=== PATIENT | female | born 1950 | race Caucasian/White ===

== ENCOUNTER 2017-01-27 11:39 | Outpatient (CLI) | payer MEDICARE, OTHER ==
[2017-01-27 12:50] LABS: Hematocrit 34.4 % (36.0-47.0); Mean Platelet Volume 8.2 fL (7.4-10.4); Red Blood Cell (RBC) Count 3.73 mill/uL (4.20-5.40); White Blood Cell (WBC) Count 6.2 thou/uL (4.8-10.8)
[2017-01-27 12:56] LABS: PTT 29.1 SEC (22.9-36.1); Prothrombin Time 13.7 SEC (12.0-14.7)
[2017-01-27 13:12] LABS: Anion Gap 10 mmol/L (10-20); BUN (Urea Nitrogen) 37 mg/dL (9.8-20.1); Calc. Creatinine Clearance 0 mL/min (70-130); Calcium 8.9 mg/dL (7.8-10.44); Carbon Dioxide 28 mmol/L (23-31); Chloride 105 mmol/L (98-107); Estimated GFR-MDRD 29
[2017-01-27 13:14] LABS: Bacteria/HPF 4+ HPF (None Seen); Bilirubin Negative (Negative); Blood, Urine Small (Negative); Glucose, Urine (Dipstick) Negative (Negative); Hyaline Casts/LPF 0-3 HYALINE CAST LPF (0-3 Hyaline); Ketone, Urine Negative (Negative); Nitrite Positive (Negative); Protein, Urine (Dipstick) 30 mg/dL (Neg-Trace); Squamous Epithelial None Seen HPF (0-3)
--- NOTE | 2017-01-30 16:02 | EKG ---
Test Reason : Blood Pressure : / mmHG Vent. Rate : 086 BPM Atrial Rate : 086 BPM P-R Int : 178 ms QRS Dur : 136 ms QT Int : 400 ms P-R-T Axes : 052 072 046 degrees QTc Int : 478 ms Normal sinus rhythm Right bundle branch block Cannot rule out Anterior infarct (cited on or before 08-DEC-2016) Abnormal ECG Confirmed by IMELDA CHAPMAN ([id number]) on 01/30/2017 4:02:22 PM Referred By: FESTUS Confirmed By:IMELDA CHAPMAN
== END 2017-01-27 11:40 | disposition home or self-care (01) ==
LOC: LABBT 11:39
PROVIDERS: ATTEND Urology
DX: Z01.818 Encounter for other preprocedural examination (principal); R94.31 Abnormal electrocardiogram [ECG] [EKG]; N20.1 Calculus of ureter
CPT/HCPCS: 80048; 81001; 85027; 85610; 85730; 87077; 87086; 87186; 93005; 93010

== ENCOUNTER 2017-01-31 11:00 | Day surgery (SDC) | payer MEDICARE, OTHER ==
[2017-01-27 12:00] VITALS: BMI 32.4
[2017-01-31] MEDS ORDERED: Levofloxacin 500 mg/D5W 100 ml Premix Bag ONE (11:57)
[2017-01-31] MEDS ORDERED: Midazolam HCl 2 mg/2 ml Vial ONE (12:24)
[2017-01-31] MEDS ORDERED: Fentanyl 250 MCG/5 ML VIAL ONE (12:24)
[2017-01-31] MEDS ORDERED: Ondansetron HCl/PF 4 MG/2 ML Vial ONE (12:50)
[2017-01-31] MEDS ORDERED: Lidocaine 1% PF 5 ML VIAL ONE (12:50)
[2017-01-31] MEDS ORDERED: Propofol 200 MG/20 ML VIAL ONE (12:50)
[2017-01-31] MEDS ORDERED: Glycopyrrolate 0.2 MG/ML 5 ML SYRINGE ONE (12:50)
[2017-01-31] MEDS ORDERED: Iothalamate Meglumine 60% 50 ML VIAL FS ONE (13:34)
[2017-01-31] MEDS ORDERED: Fentanyl 100 MCG/2 ML VIAL ONE (14:14)
--- NOTE | 2017-01-31 14:15 | OP ---
DATE OF PROCEDURE: 01/31/2017 SERVICE: Urology. SURGEON: Ricky Benavides M.D. PREOPERATIVE DIAGNOSIS: Left ureteral stone. POSTOPERATIVE DIAGNOSIS: Left ureteral stone with dense stricturing. INDICATIONS FOR PROCEDURE: Ms. Rocha is a 66-year-old white female with multiple comorbidities wh o presented to me with history of chronic kidney disease and fairly severe left hydronephrosis. A C T demonstrated there was an impacted distal left ureteral stone measuring 1.6 cm. In an attempt to improve her kidney function. I told her we could attempt to remove the stone and then revaluate her kidney function once the stone was gone to assess whether the kidney was still viable or not. Risk s and benefits of the surgery were discussed and she agreed to proceed forward. DESCRIPTION OF PROCEDURE: After identification of arm band and verification of consent, the patient was brought back to the operating room where she underwent general anesthesia with an LMA. She is placed in dorsal lithotomy position and prepped and draped in usual sterile fashion. After appropri ate timeout, a lubricated 22 Czech rigid cystoscope was introduced per urethra into the bladder. A ttention was turned to the left ureteral orifice which was somewhat narrow and atrophic. Attempts t o place a 0.035 sensor wire were met with resistance and inability to advance the wire. I felt that given the stone size it may not be possible to advance the wire around the stone. Therefore, I fel t it may be better to go in with the ureteroscope and aim the wire at the periphery of the stone to see if we could slide the wire around the stone up into the proximal ureter. Therefore, the cystosc ope was withdrawn along with the wire and a semirigid ureteroscope brought in through the urethral a nd positioned into the distal ureter. With extreme caution and being very gentle, the ureteroscope was gently inserted into the ureteral orifice and cannulated up into the distal ureter up to the lev el of blinded obliterative stricture. There were a few stone fragments on the periphery of the stri cture, but it did appear that the ureter ended blindly. On fluoroscopy, the stone could be seen imm ediately on the opposite side of the strictured area. Therefore, I felt that possibly there was a f ilm of scar tissue in front of the stricture. Therefore, a 365 micron laser fiber was brought in an d under the tissue settings, the stricture was obliterated using the tissue settings on the 365 micr on laser fiber. After obliterating a significant amount of tissue it did not appear that there was any stone apparent on the opposite side, again using fluoroscopy, it appeared that we were going int o the stone, but I could not actually see the stone on ureteroscopy. A retrograde pyelogram was per formed and it demonstrated extravasation of contrast outside the ureter. Out of concern for not kno wing where the lumen of the ureter was or where the stone is actually located and the fact that ther e was extremely dense stricture surrounding the stone, it is likely the stone is impacted and chroni c in nature and has likely been there for many months resulting in dense fibrosis around the stone. Given that we were already outside the ureter at one point I felt that continued attempts to find a way into the true lumen through the stone could potentially resulting in iliac artery injury an exc essive bleeding and risk to the patient. More than likely even if the stone was able to be broken u p at this point, given the dense fibrosis and scarring the patient would likely just end up with the results of the stricture again and likely require ureteral reimplant. Ultimately the options for t his patient are going to be either to leave the stone in place and just live with it for the remaind er of her life with a solitary kidney or give consideration for a ureteral reimplant, which will pro bably be the only way to salvage this kidney and it is questionable whether this kidney works at all . A mag 3 scan would need to be performed with a nephrostomy tube to indicate whether or not the ki dney had any potential function. I will discuss this with her family and with the patient, postoper atively, but I elected to terminate the procedure as opposed to potentially exposing the patient to significant harmed such as a complete ureteral obliteration injury or potential injury to a retroper itoneal structure such as the iliac or internal iliac artery by digging outside the ureter blindly w ith the laser fiber and ureteroscope. As such, I checked for bleeding by turning off the irrigation and there did not appear to be any significant bleeding from the tissues. The ureteroscope was the n withdrawn and removed. The patient's bladder was emptied and then the patient was awakened and ta magdalena to PACU for recovery in stable condition. COMPLICATIONS: Mild ureteral perforation with inability to remove the stone. SPECIMENS: None. ESTIMATED BLOOD LOSS: Minimal. RETAINED TUBES AND DRAINS: None. DISPOSITION: The patient will be discharged home on antibiotics and she will follow up with me in a pproximately 2-3 weeks at which time we will discuss long-term management options for her.
--- NOTE | 2017-01-31 14:56 | RAD ---
RETROGRADE URETOGRAM INTRAOPERATIVE FLUOROSCOPY: History: Ureteral stone. FINDINGS: Intraoperative fluoroscopy is provided for retrograde study as performed by Dr. Benavides. Spot fluoro scopic image shows cystoscopic catheter to overlie the left lower pelvis, with a small amount of irr egular contrast collection. The ureter is not well opacified. POS: [facility]
[2017-01-31] MEDS ORDERED: Sodium Chloride 0.9% 0 ML ONE (20:09)
== END 2017-01-31 15:30 | disposition home or self-care (01) ==
LOC: SDC 11:00
PROVIDERS: ATTEND Urology
PROC: 0TC78ZZ Extirpation of Matter from Left Ureter, Via Natural or Artificial Opening Endoscopic (ICD-10-PCS; principal; 2017-01-31)
DX: N20.1 Calculus of ureter (principal); E11.22 Type 2 diabetes mellitus with diabetic chronic kidney disease; N18.3 Chronic kidney disease, stage 3 (moderate); E11.40 Type 2 diabetes mellitus with diabetic neuropathy, unspecified; J44.9 Chronic obstructive pulmonary disease, unspecified; Z88.8 Allergy status to other drugs, medicaments and biological substances; Z79.899 Other long term (current) drug therapy; Z90.49 Acquired absence of other specified parts of digestive tract; Z95.5 Presence of coronary angioplasty implant and graft; Z90.710 Acquired absence of both cervix and uterus; Z98.84 Bariatric surgery status; Z96.653 Presence of artificial knee joint, bilateral; Z96.643 Presence of artificial hip joint, bilateral; Z98.890 Other specified postprocedural states; Z87.891 Personal history of nicotine dependence
CPT/HCPCS: 52353; 74420; 96374; C1769; A4216; J1956; J2001; J2250; J2405; J2704; J3010; Q9961

== ENCOUNTER 2017-04-17 09:15 | Inpatient (IN) | payer MEDICARE, OTHER ==
[2017-04-24] MEDS ORDERED: Midazolam HCl 2 mg/2 ml Vial ONE (12:38)
[2017-04-24] MEDS ORDERED: Fentanyl 100 MCG/2 ML VIAL ONE (12:38)
[2017-04-24] MEDS ORDERED: CEFAZOLIN/Water 2 GM/20 ML SYRINGE ONE (13:00)
[2017-04-24] MEDS ORDERED: Fentanyl 100 MCG/2 ML VIAL SLOW IVP PRN (13:07)
[2017-04-24] MEDS ORDERED: Promethazine HCl 25 MG/ML VIAL IM PRN ×2 (13:08→13:37)
[2017-04-24] MEDS ORDERED: HYDROcodone/Acetaminophen 5/325 mg Tablet PO PRN (13:08)
[2017-04-24] MEDS ORDERED: Ondansetron HCl/PF 4 MG/2 ML Vial IVP PRN ×2 (13:08→13:37)
[2017-04-24] MEDS ORDERED: traMADol HCl 50 MG TAB PO PRN ×2 (13:08)
[2017-04-24] MEDS ORDERED: Ropivacaine 0.2% 550 ML 550 ML NERVE BLCK SCH (13:08)
[2017-04-24] MEDS ORDERED: Ropivacaine 0.2% HCl/PF (40 MG/20 ML VIAL) ONE (13:25)
[2017-04-24] MEDS ORDERED: Ropivacaine 0.5% HCl/PF (150 MG/30 ML VIAL) ONE (13:25)
[2017-04-24] MEDS ORDERED: Glycopyrrolate 0.2 MG/ML 5 ML SYRINGE ONE (13:27)
[2017-04-24] MEDS ORDERED: Propofol 200 MG/20 ML VIAL ONE (13:27)
[2017-04-24] MEDS ORDERED: PHENYLEPHRINE-NS 100 MCG/ML 10 ML SYRINGE ONE (13:27)
[2017-04-24] MEDS ORDERED: Ondansetron HCl/PF 4 MG/2 ML Vial ONE (13:27)
[2017-04-24] MEDS ORDERED: Lidocaine 1% PF 5 ML VIAL ONE (13:27)
[2017-04-24] MEDS ORDERED: Promethazine HCl 25 MG/ML VIAL SLOW IVP PRN (13:37)
--- NOTE | 2017-04-24 15:51 | RAD ---
RIGHT SHOULDER ONE VIEW: History: Right shoulder replacement. FINDINGS: Reverse prosthesis right shoulder is in place without perihardware lucency. Skin lesley and soft tis errol gas are apparent. IMPRESSION: Right shoulder replacement is in good radiographic position. POS: [facility]
--- NOTE | 2017-04-24 16:42 | OP ---
DATE OF OPERATION: 04/24/2017 OPERATION: Right reverse shoulder arthroplasty. PREOPERATIVE DIAGNOSIS: Right rotator cuff arthropathy. POSTOPERATIVE DIAGNOSIS: Right rotator cuff arthropathy. COMPLICATIONS: None. ESTIMATED BLOOD LOSS: 200 mL SURGEON: Neymar Salazar M.D. PASSENGER BOOKING CLERK: Misael Lemus PA-C IMPLANTS: DePuy reverse shoulder arthroplasty size 14 stem with a +3 glenoid liner, size 42 mm gleno sphere. INDICATIONS: Ms. Rocha is a 66-year-old female who has developed severe pain and weakness with greenwood ited function in her right shoulder. She has been found to have advanced arthritis with deficient ro tator cuff. She has been indicated for reverse shoulder arthroplasty to hopefully restore function a nd relieve pain. Risks have been reviewed in detail. She has elected to proceed with the operation. DESCRIPTION OF PROCEDURE: Ms. Rocha was identified in the preoperative holding area. Her correct extremity was marked. She was carried to the operating room. She was positioned supine. General an esthesia was induced. A multidisciplinary timeout was performed. The right upper extremity was prep ped and draped in sterile fashion. We began the procedure with a deltopectoral approach to the shoulder. We dissected down through the subcutaneous tissues to the fascia. The fascia was incised. We protected the cephalic vein. At thi s point, we retracted the deltoid muscle laterally. We developed the deltopectoral interval. We the n exposed the underlying subscapularis muscle. We performed a subscapularis tenotomy after placing s jia sutures in the tendon. The patient's biceps tendon had ruptured and did not require tenotomy. A t this point, we dislocated the humeral head and performed an inferior humeral soft tissue release. We then entered the canal of the humerus. Next, we placed appropriate cutting guide over the humerus and resected our proximal humeral bone. We then protected the humerus and retracted it posteriorly. This exposed the glenoid. We placed our guidewire in centered position of the glenoid. We then ov er reamed the guidewire back to a cancellous bony base. Next, we placed our central reamer to perfor m our central hole. Finally, we impacted our glenoid baseplate. We placed four screws inferior, sup erior, anterior, and posterior. Next, we impacted a 42 mm glenosphere onto the glenoid and tightened our appropriate screw. At this point, we then moved back to the humerus. We implanted our humeral trial after reaming up to a size 14 reamer. A 14 stem was a good fit. We then prepared our proximal humerus for the humeral body with an appropriate reamer. At this point, we were able to trial. A +3 poly gave a good range of motion with no impingement and stability. Trial components were removed and final components were placed. At this point, we again reduced the shoulder and took the shoulder through full range of mo tion. We thoroughly irrigated once more. We then closed our subscapularis tenotomy with Ethibond oliva ture. This was followed by closure of her deltopectoral interval, soft tissues, and skin. A sterile dressing was applied. The patient was taken to the recovery room in good condition without complica tion.
[2017-04-24] MEDS ORDERED: Communication Order-Pharmacy FS PRN (17:02)
[2017-04-24 18:36] VITALS: BMI 32.9
[2017-04-24] MEDS ORDERED: TETANUS AND DIPHTHERIA TOX/PF 0.5 ML DISP.SYRIN IM SCH (20:00)
[2017-04-24] MEDS: Amitriptyline HCl 25 MG TAB PO SCH (21:11)
[2017-04-24] MEDS: Morphine ER 30 MG TAB PO SCH (21:12)
[2017-04-24] MEDS: Docusate 100 MG CAP PO SCH (21:12)
[2017-04-24] MEDS: Gabapentin 400 MG CAP PO SCH (21:12)
[2017-04-24] MEDS: Pravastatin Sodium 40 MG TAB PO SCH (21:13)
[2017-04-24] MEDS: CEFAZOLIN/Water 2 GM/20 ML SYRINGE SLOW IVP SCH (21:14)
[2017-04-24] MEDS: Zonisamide 100 MG CAP PO SCH (22:57)
[2017-04-25 04:20] LABS: #Eosinphils 0.1 thou/uL (0.0-0.7); #Lymphocytes 1.6 thou/uL (1.20-3.40); #Monocytes 0.7 thou/uL (0.11-0.59); #Neutrophils 6.3 thou/uL (1.40-6.50); %Basophils 0.2 % (0.0-1.0); %Eosinophils 0.7 % (0.0-10.0); %Lymphocytes 18.7 % (21.0-51.0); %Monocytes 8.1 % (0.0-10.0); %Neutrophils 72.4 % (42.0-75.0); Hemoglobin 9.1 g/dL (12.0-16.0); Mean Corpuscular HGB CONC 31.1 g/dL (32.0-36.0); Mean Corpuscular Hemoglobin 28.9 pg (27.0-31.0); Mean Corpuscular Volume 92.8 fl (81.0-99.0); Mean Platelet Volume 7.7 fL (7.4-10.4); Platelet Count 181 thou/uL (130-400); RBC Distribution Width 13.8 % (11.5-14.5); Red Blood Cell (RBC) Count 3.16 mill/uL (4.20-5.40); White Blood Cell (WBC) Count 8.6 thou/uL (4.8-10.8)
[2017-04-25 04:22] LABS: ALT (SGPT) Less than 7 U/L (8-55); AST (SGOT) 12 U/L (5-34); Albumin 3.4 g/dL (3.4-4.8); Alkaline Phosphatase 54 U/L (40-150); Anion Gap 12 mmol/L (10-20); BUN (Urea Nitrogen) 35 mg/dL (9.8-20.1); Bilirubin, Total 0.2 mg/dL (0.2-1.2); Calc. Creatinine Clearance 44 mL/min (70-130); Calcium 8.4 mg/dL (7.8-10.44); Carbon Dioxide 27 mmol/L (23-31); Chloride 107 mmol/L (98-107); Estimated GFR-MDRD 27; Globulin 2.6 g/dL (2.4-3.5); Glucose 132 mg/dL (80-115); Potassium 4.9 mmol/L (3.5-5.1); Sodium 141 mmol/L (136-145)
[2017-04-25] MEDS: CEFAZOLIN/Water 2 GM/20 ML SYRINGE SLOW IVP SCH ×3 (05:58→21:30)
[2017-04-25] MEDS: Acetaminophen 325 MG TAB PO PRN ×2 (07:18→21:33)
[2017-04-25] MEDS: Pioglitazone HCl 15 MG TAB PO SCH (08:38)
[2017-04-25] MEDS: Amlodipine 5 MG TAB PO SCH (08:38)
[2017-04-25] MEDS: Gabapentin 400 MG CAP PO SCH ×2 (08:39→21:28)
[2017-04-25] MEDS: Multivit, Therapeutic 1 TAB PO SCH (08:39)
[2017-04-25] MEDS: Morphine ER 30 MG TAB PO SCH ×2 (08:39→21:29)
[2017-04-25] MEDS: Zonisamide 25 MG CAP PO SCH (08:40)
[2017-04-25] MEDS: Docusate 100 MG CAP PO SCH ×2 (08:40→21:28)
[2017-04-25] MEDS: Bupropion 150 MG SR TAB PO SCH ×2 (08:40→21:28)
[2017-04-25] MEDS: DULoxetine 60 MG CAP PO SCH (08:40)
[2017-04-25] MEDS ORDERED: CRANBERRY FRUIT EXTRACT PO SCH (09:00)
[2017-04-25] MEDS ORDERED: Clopidogrel Bisulfate 75 MG TAB ONE (20:06)
[2017-04-25] MEDS: Amitriptyline HCl 25 MG TAB PO SCH (21:28)
[2017-04-25] MEDS: Pravastatin Sodium 40 MG TAB PO SCH (21:29)
[2017-04-25] MEDS: Zonisamide 100 MG CAP PO SCH (22:22)
[2017-04-26] MEDS: CEFAZOLIN/Water 2 GM/20 ML SYRINGE SLOW IVP SCH ×2 (05:25→18:04)
[2017-04-26] MEDS ORDERED: Dextrose 50% Abboject 50 ML SYRINGE SLOW IVP PRN (06:06)
[2017-04-26] MEDS ORDERED: Dextrose 5% in Water 1,000 ML IV PRN (06:06)
[2017-04-26] MEDS: HYDROcodone/Acetaminophen 5/325 mg Tablet PO PRN ×3 (06:39→18:53)
[2017-04-26 07:06] LABS: ALT (SGPT) Less than 7 U/L (8-55); AST (SGOT) 13 U/L (5-34); Albumin 3.2 g/dL (3.4-4.8); Alkaline Phosphatase 55 U/L (40-150); Anion Gap 14 mmol/L (10-20); BUN (Urea Nitrogen) 32 mg/dL (9.8-20.1); Bilirubin, Total 0.3 mg/dL (0.2-1.2); Calc. Creatinine Clearance 43 mL/min (70-130); Calcium 8.8 mg/dL (7.8-10.44); Carbon Dioxide 25 mmol/L (23-31); Chloride 105 mmol/L (98-107); Estimated GFR-MDRD 26; Globulin 3.1 g/dL (2.4-3.5); Glucose 172 mg/dL (80-115); Potassium 4.3 mmol/L (3.5-5.1); Protein, Total 6.3 g/dL (6.0-8.3); Sodium 140 mmol/L (136-145)
[2017-04-26] MEDS: Mometasone/Formoterol 120 PUFF INHALER INH SCH ×2 (07:14→19:56)
[2017-04-26] MEDS: Amlodipine 5 MG TAB PO SCH (08:07)
[2017-04-26] MEDS: Pioglitazone HCl 15 MG TAB PO SCH (08:07)
[2017-04-26] MEDS: DULoxetine 60 MG CAP PO SCH (08:07)
[2017-04-26] MEDS: Docusate 100 MG CAP PO SCH ×2 (08:09→21:54)
[2017-04-26] MEDS: Morphine ER 30 MG TAB PO SCH ×2 (08:09→21:54)
[2017-04-26] MEDS: Gabapentin 400 MG CAP PO SCH ×2 (08:09→21:54)
[2017-04-26] MEDS: Multivit, Therapeutic 1 TAB PO SCH (08:09)
[2017-04-26] MEDS: Zonisamide 25 MG CAP PO SCH (08:10)
[2017-04-26] MEDS: Bupropion 150 MG SR TAB PO SCH ×2 (08:12→21:53)
[2017-04-26] MEDS: Zonisamide 100 MG CAP PO SCH (21:53)
[2017-04-26] MEDS: Amitriptyline HCl 25 MG TAB PO SCH (21:54)
[2017-04-26] MEDS: Pravastatin Sodium 40 MG TAB PO SCH (21:54)
[2017-04-26] MEDS: HumaLOG 300 UNITS/3 ML VIAL SC PRN (21:56)
--- NOTE | 2017-04-27 00:14 | HP ---
DATE OF SERVICE: 04/26/2017 CHIEF COMPLAINT: Right shoulder pain. HISTORY OF PRESENT ILLNESS: The patient has been admitted for reverse total shoulder. I was consulted for COPD and diabetes management along with blood pressure management. The patient denies any shortness of breath on her home oxygen levels, any sputum production. Denies any fevers or chills, denies any abdomen pain, tolerable right shoulder pain postoperatively. The patient denies any hypoglycemia events since admission to the hospital, passing flatus, no bowel movement since admission. Vital signs on arrival to floor this a.m., temperature of 97.5, pulse of 98, respiratory rate of 20, oxygen saturation 91% on 3 liters nasal cannula, blood pressure 135/72. On review of past medical, family, social, and surgical history includes remote history of tobacco abuse. Denies alcohol or illicit drug use. Ambulates with walker on home oxygen. Patient is status post hysterectomy, bilateral hip replacement, bilateral knee replacements, , cholecystectomy, appendectomy, gastric bypass. The patient with history of chronic pain, diabetic neuropathy, diabetes type 2, COPD on oxygen therapy, hypertension, coronary artery disease, depression with prior suicide attempt. Patient is status post renal calculi with failure of kidney, currently chronic kidney disease stage 4 prior. PHYSICAL EXAMINATION: GENERAL: The patient is alert and oriented, in no acute distress. HEENT: Normocephalic, atraumatic. Extraocular movements are intact. Nasal cannula in place. Oral mucosa is moist. NECK: Supple. Right shoulder and shoulder immobilizer. HEART: Regular rate and rhythm at time of exam. No murmurs auscultated. LUNGS: With coarse breath sounds bilaterally, bronchial areas, possible rhonchi or rales in bilateral lower bases. ABDOMEN: Soft, nontender, positive bowel sounds throughout. EXTREMITIES: Lower extremities without cyanosis or edema. Compression stockings are in place. NEUROLOGIC: The patient is alert and oriented x3, no focal deficits. Speech is normal. LABORATORY WORK: Review of laboratory work, postoperative hemoglobin of 9.1, white blood cell count of 8.6, blood glucose in the last 12 hours ranging from 293-132. Sodium 140, potassium of 4.3, chloride of 105, CO2 of 25, BUN of 32, creatinine of 1.9, estimated GFR of 26. ASSESSMENT AND PLAN: Dysfunction of right shoulder status post reverse shoulder replacement under Dr. Salazar. Diabetes type 2. Sliding scale insulin. Accu-Cheks q.a.c. and at bedtime, continuing patient's home Actos. Chronic obstructive pulmonary disease, continuing oxygen p.r.n., started Dulera and the patient's breathing treatments. I will follow up chest x-ray. We will likely residual fluid in lung bases; however, we will rule out pneumonia. The patient's temperatures remain afebrile, but has an immediate postoperative period borderline temperatures, which have improved throughout today. Blood pressure continuing patient's neurovascular hypertension. Regarding the patient 's chronic pain, continuing, gabapentin and amitriptyline. Continuing patient' s depression medications including Wellbutrin. We will continue to follow inpatient. The patient pending possible inpatient rehabilitation following total shoulder. CHRISTINA
[2017-04-27] MEDS: HYDROcodone/Acetaminophen 5/325 mg Tablet PO PRN ×3 (04:03→17:27)
[2017-04-27 05:46] LABS: Anion Gap 14 mmol/L (10-20); BUN (Urea Nitrogen) 30 mg/dL (9.8-20.1); Calc. Creatinine Clearance 46 mL/min (70-130); Calcium 8.7 mg/dL (7.8-10.44); Carbon Dioxide 24 mmol/L (23-31); Chloride 104 mmol/L (98-107); Estimated GFR-MDRD 29; Glucose 165 mg/dL (80-115); Sodium 138 mmol/L (136-145)
[2017-04-27] MEDS: HumaLOG 300 UNITS/3 ML VIAL SC PRN ×2 (05:59→11:43)
[2017-04-27] MEDS: Mometasone/Formoterol 120 PUFF INHALER INH SCH (06:51)
--- NOTE | 2017-04-27 08:40 | PRG ---
DATE OF SERVICE: 04/27/2017 HISTORY OF PRESENT ILLNESS: The patient is now postoperative day #2 from a right reverse shoulder replacement. She has no acute complaints and states she is continuing to pass gas. No abdomen pain, eating and drinking well. Reports some slight decrease in urine production per her standards. She is maintained on home oxygen, does not report any increased shortness of breath. She denies any purulent sputum production. PHYSICAL EXAMINATION: VITAL SIGNS: This a.m., temperature of 98.4, pulse of 99, respiratory rate of 15, oxygen saturation of 93% on 2 liters nasal cannula, and blood pressure 145/ 67, a.m. weight pending. GENERAL: The patient is alert and oriented, no acute distress. HEENT: Normocephalic, atraumatic. Extraocular movements are intact. Nasal cannula in place. Oral mucosa is moist. NECK: Supple. Right shoulder in immobilizer and sling. HEART: Regular rate and rhythm at time of exam. LUNGS: Bilateral lower lung sorenson with rhonchi to rales. ABDOMEN: Soft, nontender, positive bowel sounds throughout. EXTREMITIES: Lower extremities without cyanosis or edema. NEUROLOGIC: The patient is alert and oriented x3, no focal deficits. Speech is normal. LABORATORY DATA: Creatinine is stable 1.77, estimated GFR of 29. Blood glucose range in the last 12 hours from 165-293. Sodium 138, potassium of 4.0, CO2 of 24. Read of chest x-ray pending. ASSESSMENT AND PLAN: Status post right reverse total shoulder postoperative day #2. The management per Orthopedics. Diabetes type 2. The patient required 6 units of sliding scale insulin in the last 24 hours. Continuing sliding scale check. The patient restarted from home Actos. Chronic obstructive pulmonary disease, on home oxygen. The patient continued on oxygen , currently stable; however, lung sounds are markedly changed from the patient' s baseline. Chest x-ray with pneumonia versus effusions of right lower lobe. We will wait for official chest x-ray read and treat accordingly. Chronic kidney disease, stage 4. The patient is currently stable. We will continue to trend while inpatient. Hypertension, the patient appears to be relatively stable on home medications. Radiology update: CXR: reviewed from this AM marked atelectasis only. No concern for pneumonia at this time. Given one dose of lasix IV. If any fevers present would repeat CXR. Ok from my standpoint to transition to [employer] on oxygen therapy and incentive spirometry. MTDD
--- NOTE | 2017-04-27 08:55 | RAD ---
CHEST PA AND LATERAL: HISTORY: A 66-year-old female with COPD. COMPARISON: 12/08/16. FINDINGS: Prominent right hemidiaphragm elevation with some horizontal linear parenchymal changes in both bases , worse on the right side evidence for some subsegmental atelectasis which is new or certainly worse than on the prior 12/08/16 study. Right reverse shoulder arthroplasty changes are noted with associat ed skin lesley. Minimal cardiomegaly. IMPRESSION: Right hemidiaphragm elevation. Horizontal parenchymal changes in the right base, evidence for develo ping right lower lobe atelectasis. Minimal linear parenchymal changes in the left costophrenic angl e, possibly mild subsegmental atelectasis. The upper lung zones appear grossly clear. Continue shor t-term followup. POS: [facility]
[2017-04-27] MEDS: Gabapentin 400 MG CAP PO SCH (09:10)
[2017-04-27] MEDS: Morphine ER 30 MG TAB PO SCH (09:11)
[2017-04-27] MEDS: Amlodipine 5 MG TAB PO SCH (09:19)
[2017-04-27] MEDS: Bupropion 150 MG SR TAB PO SCH (09:19)
[2017-04-27] MEDS: Multivit, Therapeutic 1 TAB PO SCH (09:19)
[2017-04-27] MEDS: Zonisamide 25 MG CAP PO SCH (09:19)
[2017-04-27] MEDS: DULoxetine 60 MG CAP PO SCH (09:19)
[2017-04-27] MEDS: Docusate 100 MG CAP PO SCH (09:20)
[2017-04-27] MEDS: Pioglitazone HCl 15 MG TAB PO SCH (09:20)
[2017-04-27] MEDS: Furosemide 40 MG/4 ML VIAL SLOW IVP SCH ×2 (11:45→11:46)
[2017-04-27 16:22] VITALS: BP 125/68; TEMP 98.1
--- NOTE | 2017-04-28 10:45 | DIS ---
DATE OF ADMISSION: 04/24/2017 DATE OF DISCHARGE: 04/27/2017 PREOPERATIVE DIAGNOSIS: Right rotator cuff arthropathy. DISCHARGE DIAGNOSIS: Right rotator cuff arthropathy. PROCEDURE: The patient underwent a right reverse shoulder arthroplasty. HOSPITAL COURSE: Hospital stay was unremarkable other than the patient had a lot of pain and felt so me unsteadiness on her feet. We did get a Sound consult and was found that she did have a little flu id overload and little atelectasis in her lung, but she progressed well from these issues and had no dramatic hospital issues. She worked with PT, OT each day. Her diet was good and her strength incre ased every day, therefore after surgery it was deemed that due to her weakness, she would need a aliya le more help than just going home, so [facility] a [facility] facility. FOLLOWUP: Follow up would be in 10-14 days, sooner if there are problems or concerns. She would nee d to follow up with her PCP also regarding her other medical issues. DISCHARGE MEDICATIONS: Given with usage instructions. Garth Amador PA-C, for Dr. Neymar Salazar.
== END 2017-04-27 18:06 | DRG 483 ==
LOC: SURG A 04-24 11:30 → SJJU 04-24 16:09
PROVIDERS: ADMIT Orthopaedic Surgery; ATTEND Orthopaedic Surgery
PROC: 0RRJ00Z Replacement of Right Shoulder Joint with Reverse Ball and Socket Synthetic Substitute, Open Approach (ICD-10-PCS; principal; 2017-04-24)
PROC: 3E0T3BZ Introduction of Anesthetic Agent into Peripheral Nerves and Plexi, Percutaneous Approach (ICD-10-PCS; 2017-04-24)
DX: M12.811 Other specific arthropathies, not elsewhere classified, right shoulder (principal); E11.40 Type 2 diabetes mellitus with diabetic neuropathy, unspecified; N18.4 Chronic kidney disease, stage 4 (severe); J98.11 Atelectasis; I12.9 Hypertensive chronic kidney disease with stage 1 through stage 4 chronic kidney disease, or unspecified chronic kidney disease; I25.10 Atherosclerotic heart disease of native coronary artery without angina pectoris; J44.9 Chronic obstructive pulmonary disease, unspecified; Z96.653 Presence of artificial knee joint, bilateral; Z96.643 Presence of artificial hip joint, bilateral; Z99.81 Dependence on supplemental oxygen; Z87.442 Personal history of urinary calculi; Z87.891 Personal history of nicotine dependence; Z91.5 Personal history of self-harm; Z98.84 Bariatric surgery status; E87.70 Fluid overload, unspecified
CPT/HCPCS: 36415; 36416; 71046; 80048; 80053; 85025; 94640; 94664; A4306; G8978-GP-CL; G8979-GP-CJ; J1940; J2001; J2250; J2405; J2704; J2795; J3010; J7620

== ENCOUNTER 2017-04-18 09:48 | Outpatient (CLI) | payer MEDICARE, OTHER ==
[2017-04-18 11:37] LABS: Hemoglobin 10.2 g/dL (12.0-16.0); Mean Corpuscular HGB CONC 30.4 g/dL (32.0-36.0); Mean Corpuscular Hemoglobin 28.3 pg (27.0-31.0); Mean Corpuscular Volume 93.1 fl (81.0-99.0); Mean Platelet Volume 8.3 fL (7.4-10.4); Platelet Count 155 thou/uL (130-400); RBC Distribution Width 14.2 % (11.5-14.5); White Blood Cell (WBC) Count 10.6 thou/uL (4.8-10.8)
[2017-04-18 11:57] LABS: Anion Gap 14 mmol/L (10-20); BUN (Urea Nitrogen) 51 mg/dL (9.8-20.1); Calc. Creatinine Clearance 0 mL/min (70-130); Calcium 8.9 mg/dL (7.8-10.44); Carbon Dioxide 27 mmol/L (23-31); Chloride 104 mmol/L (98-107); Estimated GFR-MDRD 23; Glucose 191 mg/dL (80-115); Potassium 4.4 mmol/L (3.5-5.1); Sodium 141 mmol/L (136-145)
== END 2017-04-18 09:49 | disposition home or self-care (01) ==
LOC: LABBT 09:48
PROVIDERS: ATTEND Orthopaedic Surgery
DX: Z01.812 Encounter for preprocedural laboratory examination (principal); M12.811 Other specific arthropathies, not elsewhere classified, right shoulder
CPT/HCPCS: 80048; 85027; 86850; 86900; 86901; 87081

== ENCOUNTER 2017-05-05 03:31 | Emergency (ER) | payer MEDICARE, OTHER ==
[2017-05-05] MEDS ORDERED: oxyCODONE/Acetaminophen 5 mg/325 mg Tablet PO SCH (04:30)
--- NOTE | 2017-05-05 07:48 | CT ---
PRELIMINARY REPORT/[facility]/EMERGENCY AFTER HOURS PROCEDURE: EXAM: CT Head Without Intravenous Contrast EXAM DATE/TIME: Exam ordered 05/05/2017 4:23 AM CLINICAL HISTORY: 66 years old, female; Injury or trauma; Fall; Initial encounter; Abrasion; Forehead; Patient HX: Er 1 ; 66 y/o f who is on home o2 at night presents via ems from in [place] groundlevel mechanical fall around 0230. Pt states she was getting out of bed and next thing she knows she fell onto her knees then went face first into the ground. Denies any loc. TECHNIQUE: Axial computed tomography images of the head/brain without intravenous contrast. COMPARISON: No relevant prior studies available. FINDINGS: Brain: Volume loss and chronic small vessel ischemic change. No hemorrhage. Ventricles: Unremarkable. No ventriculomegaly. Bones/joints: Unremarkable. No acute fracture. Soft tissues: Frontal scalp hematoma. Sinuses: Unremarkable as visualized. No acute sinusitis. Mastoid air cells: Unremarkable as visualized. No mastoid effusion. IMPRESSION: No intracranial hemorrhage. Thank you for allowing us to participate in the care of your patient. Dictated and Authenticated by: Kyle Rico MD 05/05/2017 4:37 AM Central Time ([place] & [place]) FINAL REPORT EMERGENCY AFTER HOURS BRAIN CT WITHOUT IV CONTRAST: Date: 05/05/17 Time: 0424 hours COMPARISON: 12/08/16. FINDINGS/IMPRESSION: Prominent vertebral and carotid artery vascular calcifications, evidence for arteriovascular disease. No mass or bleed. Report in agreement with preliminary report given on-call by Scott. POS: [facility]
--- NOTE | 2017-05-05 07:54 | RAD ---
RIGHT SHOULDER 3 VIEWS: Date: 05/05/17 HISTORY: Fall. COMPARISON: Radiographs from 04/24/17. FINDINGS: Right shoulder arthroplasty in place. No evidence for hardware complication. No right-sided rib fract ure. IMPRESSION: No evidence for hardware complication. POS: [facility]
--- NOTE | 2017-05-05 07:58 | RAD ---
RIGHT ELBOW 4 VIEWS: Date: 05/05/17 HISTORY: Fall. COMPARISON: Elbow radiograph dated 12/08/16. FINDINGS: Interval placement of a cannulated, partially threaded screw through the olecranon bridging an osteot roberta which is healing. The medial and lateral plate and screw fixation is in good anatomic position, a s well as interfragmentary screws. No evidence for hardware complication. Mild edema of the soft tiss ues. IMPRESSION: Satisfactory appearance post reconstruction. POS: [facility]
== END 2017-05-05 05:45 | disposition home or self-care (01) ==
LOC: ERS 03:31
DX: S50.01XA Contusion of right elbow, initial encounter (principal); S40.011A Contusion of right shoulder, initial encounter; E11.40 Type 2 diabetes mellitus with diabetic neuropathy, unspecified; I10 Essential (primary) hypertension; M19.90 Unspecified osteoarthritis, unspecified site; M06.9 Rheumatoid arthritis, unspecified; F32.9 Major depressive disorder, single episode, unspecified; Z87.891 Personal history of nicotine dependence; Z79.82 Long term (current) use of aspirin; Z79.84 Long term (current) use of oral hypoglycemic drugs; Z79.899 Other long term (current) drug therapy; W06.XXXA Fall from bed, initial encounter
CPT/HCPCS: 70450

== ENCOUNTER 2017-05-19 14:29 | Observation (INO) | payer MEDICARE, OTHER ==
--- NOTE | 2017-05-19 15:10 | RAD ---
PORTABLE CHEST 1 VIEW: Date: 05/19/17 Time: 1502 hours HISTORY: Nausea and vomiting. FINDINGS: Comparison made with exam of 12/08/16. The heart is enlarged. There is continued elevation of the right hemidiaphragm. No confluent areas of consolidation, pneumothorax, kiki pulmonary edema, or pleural effusions are seen. There are postop changes of right shoulder arthroplasty, new since the previous study. IMPRESSION: No acute process. POS: [facility]
[2017-05-19 15:17] LABS: #Lymphocytes 0.6 thou/uL (1.20-3.40); #Monocytes 0.3 thou/uL (0.11-0.59); #Neutrophils 6.2 thou/uL (1.40-6.50); %Basophils 0.1 % (0.0-1.0); %Eosinophils 0.1 % (0.0-10.0); %Lymphocytes 8.9 % (21.0-51.0); %Monocytes 3.6 % (0.0-10.0); %Neutrophils 87.2 % (42.0-75.0); Hemoglobin 9.6 g/dL (12.0-16.0); Mean Corpuscular Hemoglobin 28.3 pg (27.0-31.0); Mean Corpuscular Volume 91.3 fl (81.0-99.0); Platelet Count 227 thou/uL (130-400); Red Blood Cell (RBC) Count 3.38 mill/uL (4.20-5.40); White Blood Cell (WBC) Count 7.1 thou/uL (4.8-10.8)
[2017-05-19 15:39] LABS: ALT (SGPT) Less than 7 U/L (8-55); AST (SGOT) 10 U/L (5-34); Albumin 3.7 g/dL (3.4-4.8); Alkaline Phosphatase 69 U/L (40-150); Anion Gap 13 mmol/L (10-20); BUN (Urea Nitrogen) 35 mg/dL (9.8-20.1); Bilirubin, Total 0.4 mg/dL (0.2-1.2); Calc. Creatinine Clearance 0 mL/min (70-130); Calcium 9.3 mg/dL (7.8-10.44); Carbon Dioxide 27 mmol/L (23-31); Chloride 104 mmol/L (98-107); Estimated GFR-MDRD 25; Globulin 3.5 g/dL (2.4-3.5); Glucose 217 mg/dL (80-115); Lipase 7 U/L (8-78); Potassium 4.9 mmol/L (3.5-5.1); Protein, Total 7.2 g/dL (6.0-8.3); Sodium 139 mmol/L (136-145)
[2017-05-19] MEDS ORDERED: Ondansetron HCl/PF 4 MG/2 ML Vial ONE (15:46)
[2017-05-19 16:12] LABS: Troponin I 0.018 ng/mL (< 0.028)
[2017-05-19] MEDS ORDERED: Iopamidol 370 76% 50 ML VIAL FS ONE (16:39)
[2017-05-19 17:49] LABS: Bilirubin Negative (Negative); Blood, Urine Small (Negative); Clarity TURBID (Clear); Glucose, Urine (Dipstick) 100 mg/dL (Negative); Leukocyte Large (Negative); Nitrite Negative (Negative); Protein, Urine (Dipstick) 30 mg/dL (Neg-Trace); Specific Gravity, Urine 1.008 (1.002-1.036); Urobilinogen 0.2 mg/dL (0.2-1.0)
[2017-05-19 17:50] LABS: Bacteria/HPF 2+ HPF (None Seen); Squamous Epithelial 0-3 HPF (0-3)
[2017-05-19 17:51] LABS: Pathc Cast-AUWi Flag 7.37 (0-2.49)
[2017-05-19 18:04] LABS: Hyaline Casts/LPF 0-3 HYALINE CAST LPF (0-3 Hyaline); Other Casts/LPF None Seen LPF (0-3 Hyaline); Yeast-All Forms None Seen HPF (None Seen)
--- NOTE | 2017-05-19 18:58 | CT ---
CT OF ABDOMEN AND PELVIS PERFORMED WITHOUT CONTRAST ENHANCEMENT: 05/19/17 HISTORY: Abdominal pain, rheumatoid arthritis, history of bariatric surgery and cholecystectomy. Patient with nausea, vomiting, and diarrhea since yesterday. No IV contrast was administered due to low GFR. There is elevation of the right hemidiaphragm. There is linear change in the right base consistent wi th atelectasis. There is some calcified left hilar lymph nodes present. There is some reflux into the esophagus noted. The liver and spleen show no focal abnormalities. The pancreas is atrophic. Gallbladder appears to clemons ve been removed. There is extrahepatic biliary ductal dilatation which is probably on the basis of th e cholecystectomy. Right and left adrenal glands are normal. Vascular calcifications are seen. There is also what appear to be some punctate right renal calculi. There is marked left sided hydronephrosis and hydroureter. This appears fairly chronic in appearance with cortical thinning to the left kidney. There are tiny h ypodensities involving both kidneys. In addition, there are some hyperdense areas. These probably rep resent a combination of small cysts, some of which appear to be hemorrhagic. The dilatation of the le ft ureter extends to a large distal left calculus which measures 14 mm in maximum dimension. It is ju st proximal to the left ureterovesical junction. There is no significant periaortic or mesenteric kira nopathy. The aorta is ectatic but not aneurysmal. No signs of any bowel obstruction. Postoperative ch anges of the stomach are noted. CT OF PELVIS PERFORMED WITHOUT CONTRAST ENHANCEMENT: No evidence of adenopathy, mass or free fluid. Bilateral hip prostheses are present. IMPRESSION: 1. Moderate chronic appearing left sided hydronephrosis and hydroureter related to a large dista l left ureteral calculus measuring 15 mm in maximum size. 2. Coronary artery calcification. 3. Bibasilar atelectatic lung changes. 4. Postop cholecystectomy change and gastric surgery. POS: [facility]
[2017-05-19] MEDS ORDERED: HYDROcodone/Acetaminophen 7.5/325 mg Tablet PO PRN (20:59)
[2017-05-19] MEDS ORDERED: Acetaminophen 325 MG TAB PO PRN (20:59)
[2017-05-19] MEDS ORDERED: Ondansetron HCl/PF 4 MG/2 ML Vial IVP PRN (20:59)
[2017-05-19] MEDS ORDERED: Zolpidem Tartrate 5 MG TAB PO PRN (20:59)
[2017-05-19] MEDS ORDERED: Loperamide HCl 2 MG CAP PO PRN (20:59)
[2017-05-19 21:52] VITALS: BMI 31.5
[2017-05-19] MEDS: Sodium Chloride 0.9% 1,000 ML IV SCH (22:15)
--- NOTE | 2017-05-19 23:24 | HP ---
DATE OF ADMISSION: 05/19/2017 TIME: 9:00 p.m. HISTORY OF PRESENT ILLNESS: This is a 66-year-old white female who is being admitted for dehydration . She has a history of diabetes, hypertension, heart disease, and chronic kidney disease. She was d oing relatively well until yesterday when she developed persistent diarrhea. It lasted throughout th e night and this morning. However, over the past several hours it has resolved. She is feeling much better at this time. She was evaluated in the ER and her creatinine was noted to be elevated. She does have a nonfunctioning left kidney due to kidney stones. So therefore, she will be admitted for rehydration and reevaluation of her kidney function. PAST MEDICAL HISTORY: Include stage 3 kidney disease secondary to severe nephrolithiasis and urolith iasis, rheumatoid arthritis, osteoarthritis, type 2 diabetes, neuropathy, heart disease, status post angioplasty, major depressive disorder, COPD, anemia, chronic joint pain. PAST SURGICAL HISTORY: Right hip replacement in 07/2016, ulcer repair in 10/2016, left hip replaceme nt in 2009, left knee replacement in 2004, right knee replacement in 2000. Bariatric surgery in 1999, hysterectomy in 1990, in 1978, cholecystectomy in 1959, appendec louisa in 1963, broken elbow repair 11/2016. FAMILY HISTORY: Father with diabetes, hypertension, heart disease. Mother with diabetes, h eart disease, stroke. Siblings with diabetes, hypertension, heart disease. SOCIAL HISTORY: Patient is a former smoker. She quit in 2013. She has a half pack per day tobacco history with over 25 years. She does not drink alcohol. She drinks caffeine daily. 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 She is . She has one son with 2 grandkids. Patient does live at home with her son. REVIEW OF SYSTEMS: As above. PHYSICAL EXAMINATION: VITAL SIGNS: Stable, afebrile. GENERAL: Patient in no acute distress at this time. HEENT: Clear. NECK: Supple. HEART: Regular rate and rhythm. LUNGS: Clear. ABDOMEN: With mild to moderate diffuse tenderness. EXTREMITIES: With no edema. LABORATORY AND X-RAY FINDINGS: White count 7.1, H&H 9.6 and 30.9, platelet 227. Sodium is 139, pota ssium is 4.9, creatinine is 1.98, previous creatinine was 1.77 on 04/27, glucose 217. Liver function s normal. Urine with 7-10 rbc's, greater than 50 TNTC, 2+ bacteria. CT of the abdomen showed left-s ided hydronephrosis and hydroureter related to distal ureteral calculus measuring 15-mm coronary calvin ry calcifications, bibasilar atelectatic lung disease. Postop cholecystectomy and gastric surgery. Chest x-ray no acute disease. ASSESSMENT: 1. Dehydration secondary to acute gastroenteritis. 2. Acute kidney injury on chronic kidney disease stage 3 with left-sided nonfunctioning left hydrone phrosis, hydroureter secondary to distal urolithiasis. 3. Rheumatoid arthritis/osteoarthritis. 4. Chronic pain. 5. Diabetes. 6. Hypertension. 7. Hyperlipidemia. 8. Major depressive disorder. 9. Chronic obstructive pulmonary disease. 10. Anemia 11. Coronary artery disease. PLAN: 1. Hydrate with normal saline. 2. CBC, CMP in a.m. 3. Hold home medications. 4. Possible transfer in the a.m. back to [facility] for further right shoulder rehabilitation. 5. Morphine for pain. 6. Protonix 40 IV daily. 7. Lovenox 40 mg q. day.
[2017-05-20 05:27] LABS: #Basophils 0.1 thou/uL (0.0-0.2); #Eosinphils 0.1 thou/uL (0.0-0.7); #Monocytes 0.5 thou/uL (0.11-0.59); #Neutrophils 3.8 thou/uL (1.40-6.50); %Basophils 0.8 % (0.0-1.0); %Eosinophils 1.3 % (0.0-10.0); %Lymphocytes 31.2 % (21.0-51.0); %Monocytes 8.2 % (0.0-10.0); %Neutrophils 58.5 % (42.0-75.0); Hemoglobin 8.6 g/dL (12.0-16.0); Mean Corpuscular HGB CONC 30.9 g/dL (32.0-36.0); Mean Corpuscular Hemoglobin 28.3 pg (27.0-31.0); Mean Corpuscular Volume 91.8 fl (81.0-99.0); Mean Platelet Volume 8.1 fL (7.4-10.4); Platelet Count 210 thou/uL (130-400); Red Blood Cell (RBC) Count 3.05 mill/uL (4.20-5.40); White Blood Cell (WBC) Count 6.5 thou/uL (4.8-10.8)
[2017-05-20 05:52] LABS: ALT (SGPT) Less than 7 U/L (8-55); AST (SGOT) 8 U/L (5-34); Albumin 3.3 g/dL (3.4-4.8); Alkaline Phosphatase 61 U/L (40-150); Anion Gap 10 mmol/L (10-20); BUN (Urea Nitrogen) 32 mg/dL (9.8-20.1); Bilirubin, Total 0.3 mg/dL (0.2-1.2); Calc. Creatinine Clearance 47 mL/min (70-130); Calcium 9.1 mg/dL (7.8-10.44); Carbon Dioxide 31 mmol/L (23-31); Chloride 107 mmol/L (98-107); Estimated GFR-MDRD 30; Globulin 2.9 g/dL (2.4-3.5); Glucose 113 mg/dL (80-115); Potassium 4.1 mmol/L (3.5-5.1); Protein, Total 6.2 g/dL (6.0-8.3); Sodium 144 mmol/L (136-145)
[2017-05-20 08:08] VITALS: BP 130/60; TEMP 99
[2017-05-20] MEDS ORDERED: Famotidine/PF 20 mg/2ml Vial SLOW IVP SCH (09:00)
[2017-05-20] MEDS ORDERED: Enoxaparin Sodium 40 MG/0.4 ML SYRINGE SC SCH (09:00)
[2017-05-20] MEDS: Sodium Chloride 0.9% 1,000 ML IV SCH (10:41)
--- NOTE | 2017-05-20 15:56 | DIS ---
DATE OF ADMISSION: 05/19/2017 DATE OF DISCHARGE: 05/20/2017 DISCHARGE DIAGNOSES: 1. Dehydration. 2. Acute gastroenteritis. 3. Acute kidney injury on chronic kidney disease stage 3, nonfunctioning left kidney with hydronephr osis and hydroureter secondary to distal urolithiasis. 4. Rheumatoid arthritis/osteoarthritis 5. Chronic pain. 6. Diabetes. 7. Hypertension. 8. Hyperlipidemia. 9. Major depressive disorder. 10. COPD. 11. Anemia. 12. Coronary artery disease. Plan to transfer back to [facility]. DISCHARGE MEDICATIONS: Include amlodipine 2.5 mg daily, amitriptyline 25 p.o. at bedtime, aspirin 81 mg daily, bupropion 150 b.i.d., cranberry fruit extract 1500 daily, Cymbalta 60 q.a.m., gabapentin 4 00 three p.o. b.i.d., morphine ER 30 b.i.d., multivitamin daily, Protonix 40 daily, Actos 30 daily, p ravastatin 40 at bedtime, zonisamide 50 p.o. daily. BRIEF HISTORY: This is a 66-year-old white female admitted for dehydration. She has a history of di abetes, hypertension, heart disease, and chronic kidney disease. Doing relatively well until the day prior to admission. She developed persistent diarrhea, which lasted throughout the night and the mo rning of admission. Eventually, the diarrhea resolved. She was evaluated in the ER and her creatini ne was noted to be elevated. She does have a history of a nonfunctioning left kidney due to distal u rolithiasis. She is followed by Urology. She was admitted for hydration. HOSPITAL COURSE: The patient was admitted. She was placed on IV normal saline. Her initial creatin ine was 1.98. Her baseline is about 1.7. Her creatinine this morning is 1.68. She is feeling great . She is ready to be transferred back to [facility]. She is well hydrated and tolerating a regular diet. I have instructed her to limit her dairy intake. At discharge, white count 6.5 and H and H 8 .6 and 28.0.
[2017-05-20] MEDS ORDERED: Prevnar 13-Val Conj/PF 0.5 ML SYRINGE IM ONE (21:00)
[2017-05-20] MEDS ORDERED: FLU VACC TS2017-18 (>65YR) 0.5 ML SYRINGE IM ONE (21:00)
[2017-05-22 12:01] LABS: Base Excess-Venous 1.8 mmol/L (-30.0-30.0); CO2 Tension (PvCO2) 50.8 mmHg (41.0-51.0); Calcium, Ionized 1.12 mmol/L (1.12-1.32); Hemoglobin - Calc 10.3 g/dL (12.0-18.0); O2 Tension (PvO2) 60.3 mmHg (35.0-45.0); Potassium 4.6 mmol/L (3.4-4.7); T. Carbon Dioxide 29.6 mmol/L (1.0-85.0)
== END 2017-05-20 13:38 ==
LOC: ERS 14:29 → 2SW 21:19
PROVIDERS: ADMIT Family Medicine; ATTEND Family Medicine
DX: K52.9 Noninfective gastroenteritis and colitis, unspecified (principal); E86.0 Dehydration; I12.9 Hypertensive chronic kidney disease with stage 1 through stage 4 chronic kidney disease, or unspecified chronic kidney disease; E11.22 Type 2 diabetes mellitus with diabetic chronic kidney disease; N18.3 Chronic kidney disease, stage 3 (moderate); N17.9 Acute kidney failure, unspecified; D63.1 Anemia in chronic kidney disease; N13.2 Hydronephrosis with renal and ureteral calculous obstruction; M19.90 Unspecified osteoarthritis, unspecified site; E78.5 Hyperlipidemia, unspecified; I25.10 Atherosclerotic heart disease of native coronary artery without angina pectoris; J44.9 Chronic obstructive pulmonary disease, unspecified; G89.29 Other chronic pain; F32.9 Major depressive disorder, single episode, unspecified; Z88.8 Allergy status to other drugs, medicaments and biological substances; Z98.84 Bariatric surgery status; Z90.49 Acquired absence of other specified parts of digestive tract; Z90.710 Acquired absence of both cervix and uterus; Z96.653 Presence of artificial knee joint, bilateral; Z96.643 Presence of artificial hip joint, bilateral; Z98.890 Other specified postprocedural states; Z87.891 Personal history of nicotine dependence; Z83.3 Family history of diabetes mellitus; Z82.49 Family history of ischemic heart disease and other diseases of the circulatory system
CPT/HCPCS: 71045; 74176; 80053 ×2; 82274; 82330; 82435; 82803; 82962; 83605; 83690; 84132; 84295; 84484; 85014; 85025 ×2; 87040; 87077; 87086; 87186; 87804 ×2; 93005; 96361 ×3; 96372; 96374; 96375; 99285; G0378; 36415; 36416; 81003; 81015; 90471; 90682; G0008; J0696; J1650; J2405; Q2036

== ENCOUNTER 2017-10-10 11:12 | Outpatient (CLI) | payer MEDICARE, OTHER | END 2017-10-10 11:13 | disposition home or self-care (01) | LOC: BICMAMMO 11:12 | PROVIDERS: ATTEND Family Medicine | DX: Z12.31 Encounter for screening mammogram for malignant neoplasm of breast (principal); R92.1 Mammographic calcification found on diagnostic imaging of breast; Z80.3 Family history of malignant neoplasm of breast | CPT/HCPCS: 77063; 77067 ==

== ENCOUNTER 2018-12-26 12:51 | Outpatient (CLI) | payer MEDICARE, OTHER ==
--- NOTE | 2018-12-26 16:05 | MMO ---
Bilateral MAMMO Bilat Screen [facility]. CLINICAL HISTORY: Patient is 68 years old and is seen for screening. The patient has the following colon. The patient has a history of cervical cancer 1990. VIEWS: The views performed were: bilateral mediolateral oblique with tomosynthesis; bilateral craniocaudal with tomosynthesis; left craniocaudal; and right mediolateral oblique. FILMS COMPARED: The present examination has been compared to a prior imaging study performed at [facility] on 10/10/2017. This study has been interpreted with the assistance of computer-aided detection. MAMMOGRAM FINDINGS: The breasts are almost entirely fat. Benign calcifications are noted bilaterally. There are no suspicious masses, suspicious calcifications, or new areas of architectural distortion. IMPRESSION: THERE IS NO MAMMOGRAPHIC EVIDENCE OF MALIGNANCY. A ROUTINE FOLLOW-UP MAMMOGRAM IN 1 YEAR IS RECOMMENDED. THE RESULTS OF THIS EXAM WERE SENT TO THE PATIENT. ACR BI-RADS Category 2 - Benign finding MAMMOGRAPHY NOTE: 1. A negative mammogram report should not delay a biopsy if a dominant of clinically suspicious mass is present. 2. Approximately 10% to 15% of breast cancers are not detected by mammography. 3. Adenosis and dense breasts may obscure an underlying neoplasm. Reported by: SHAGUFTA TOLBERT MD Electonically Signed: [id number]
== END 2018-12-26 12:52 | disposition home or self-care (01) ==
LOC: BICMAMMO 12:51
PROVIDERS: ATTEND Family Medicine
DX: Z12.31 Encounter for screening mammogram for malignant neoplasm of breast (principal); Z85.41 Personal history of malignant neoplasm of cervix uteri
CPT/HCPCS: 77063; 77067

== ENCOUNTER 2019-06-13 14:19 | Inpatient (IN) | payer MEDICARE, OTHER ==
[2019-06-13 15:02] LABS: #Eosinphils 0.2 thou/uL (0.0-0.7); #Lymphocytes 1.4 thou/uL (1.20-3.40); #Monocytes 0.7 thou/uL (0.11-0.59); #Neutrophils 3.9 thou/uL (1.40-6.50); %Basophils 0.7 % (0.0-1.0); %Eosinophils 3.4 % (0.0-10.0); %Lymphocytes 22.4 % (21.0-51.0); %Monocytes 11.4 % (0.0-10.0); %Neutrophils 62.1 % (42.0-75.0); Hemoglobin 12.9 g/dL (12.0-16.0); Mean Corpuscular HGB CONC 32.2 g/dL (32.0-36.0); Mean Corpuscular Hemoglobin 30.4 pg (27.0-31.0); Mean Corpuscular Volume 94.2 fL (78.0-98.0); Mean Platelet Volume 9.7 fL (7.4-10.4); Platelet Count 170 thou/uL (130-400); Red Blood Cell (RBC) Count 4.25 mill/uL (4.20-5.40); White Blood Cell (WBC) Count 6.3 thou/uL (4.8-10.8)
[2019-06-13 15:28] LABS: ALT (SGPT) 11 U/L (8-55); AST (SGOT) 16 U/L (5-34); Albumin 3.9 g/dL (3.4-4.8); Alkaline Phosphatase 71 U/L (40-110); Anion Gap 15 mmol/L (10-20); BUN (Urea Nitrogen) 37 mg/dL (9.8-20.1); Bilirubin, Total 0.3 mg/dL (0.2-1.2); Calc. Creatinine Clearance 0 mL/min (70-130); Calcium 9.1 mg/dL (7.8-10.44); Carbon Dioxide 32 mmol/L (23-31); Chloride 100 mmol/L (98-107); Estimated GFR-MDRD 19; Globulin 2.8 g/dL (2.4-3.5); Glucose 138 mg/dL (80-115); Potassium 4.2 mmol/L (3.5-5.1); Protein, Total 6.7 g/dL (6.0-8.3); Sodium 143 mmol/L (136-145)
--- NOTE | 2019-06-13 15:42 | RAD ---
PORTABLE CHEST ONE VIEW: 06/13/19 at 2:53 p.m. HISTORY: Pneumonia. FINDINGS: Comparison made with exam of 05/19/17. There is continued elevation of the right hemidiaphragm. The hea rt size is enlarged. No lobar consolidation, pneumothoraces, kiki pulmonary edema or large effusions are seen. Postop changes of right shoulder arthroplasty again seen. IMPRESSION: No acute process. POS: [facility]
[2019-06-13 16:24] LABS: Bacteria/HPF None Seen HPF (None Seen); Bilirubin Negative (Negative); Blood, Urine Negative (Negative); Clarity Clear (Clear); Glucose, Urine (Dipstick) Normal (Negative); Leukocyte 25 Leu/uL (Negative); Nitrite Negative (Negative); Protein, Urine (Dipstick) 20 mg/dL (Neg-Trace); RBC/HPF 0-3 HPF (0-3); Squamous Epithelial 0-3 HPF (0-3); Urobilinogen Normal mg/dL (Less than 2)
[2019-06-13 16:36] LABS: Troponin I 0.047 ng/mL (< 0.028)
[2019-06-13] MEDS ORDERED: Albuterol Sulfate 2.5 mg/3 ml Neb ONE (17:30)
[2019-06-13] MEDS ORDERED: Acetaminophen 325 MG TAB PO PRN (18:58)
[2019-06-13] MEDS ORDERED: Acetaminophen 650 MG Suppository PR PRN (18:58)
[2019-06-13] MEDS ORDERED: HYDROcodone/Acetaminophen 5/325 mg Tablet PO PRN ×2 (18:58)
[2019-06-13] MEDS ORDERED: methylPREDNISolone Sod Succ/PF 125 MG/2 ML VIAL ONE (19:14)
[2019-06-13] MEDS ORDERED: Azithromycin 500 MG VIAL ONE (19:14)
[2019-06-13] MEDS ORDERED: Dextrose 50% Abboject 50 ML SYRINGE SLOW IVP PRN (19:37)
[2019-06-13] MEDS ORDERED: Dextrose 5% in Water 1,000 ML IV PRN (19:37)
[2019-06-13] MEDS ORDERED: HumaLOG 300 UNITS/3 ML VIAL SC PRN (19:37)
--- NOTE | 2019-06-13 19:43 | ULT ---
EXAM: Bilateral lower extremity venous Doppler HISTORY: Bilateral lower extremity swelling/edema. FINDINGS: Grayscale, color-flow, Doppler evaluation, spectral analysis of the bilateral lower extremities venou s structures is performed with 2-D imaging. The bilateral common femoral, superficial femoral, popliteal, posterior tibial, proximal greater saphenous and profunda femoral veins are imaged. There is normal luminal compressibility, flow, and augmentation in the visualized deep venous structu res of the bilateral lower extremities. IMPRESSION: No evidence of a deep vein thrombosis in the visualized deep venous structures bilateral lower extrem ities.
[2019-06-13 20:09] LABS: Troponin I 0.052 ng/mL (< 0.028)
--- NOTE | 2019-06-13 20:41 | CT ---
CT CHEST WITHOUT CONTRAST CLINICAL INDICATION: Trauma to left chest wall. Chest pain and shortness of breath. COMPARISON: None FINDINGS: Aorta: Limited evaluation without IV contrast. Dense vascular calcifications are seen in the aortic a rch and involving the descending thoracic aorta. Prominent coronary artery calcifications are also seen. Lungs: Bibasilar areas of consolidation are seen which could be related to volume loss, aspiration pn eumonitis, or pneumonia. Follow-up to resolution is recommended. No pleural effusion or pneumothorax is identified. No discrete pulmonary nodule or mass is seen. Mediastinum: The heart is enlarged. There is a small to moderate-sized pericardial effusion. The esophagus is dilated and filled with fluid and increased density foci which may be related to par ticular matter from recent ingestion. There are postoperative changes of the stomach. Thyroid gland: Grossly normal in appearance allowing for artifact extending through this region. Osseous structures: There are healing left anterior fifth and sixth rib fractures. There is a buckle type fracture involving the lateral left seventh rib. The exact age of this fracture is difficult to determine. No right-sided rib fracture is identified. Postoperative changes related to right gleno humeral prostheses are noted with postoperative changes at the level of the elbow seen on regulator operator image. Multilevel degenerative changes are seen throughout the thoracic and visualized upper lumbar s pine. Vertebral body heights of the thoracic spine are within normal limits. There is a remote fracture and deformity involving the manubrium. Chest wall: No abnormality visualized. Upper abdomen: As noted on CT abdomen on 05/19/2017, there is severe left hydronephrosis as well as sev ere left renal cortical thinning suggesting a long-standing process. Increased density lesion superior pole right kidney is again seen. There is also a small low density lesion the medial aspect superior pole right kidney not definitely seen on prior exam. IMPRESSION: 1. Distended and fluid-filled esophagus with particulate matter also seen in the esophagus. Postopera tive changes of the stomach are seen which may be related to prior gastric sleeve procedure. However, clinical correlation is recommended. Given significant dilated esophagus, endoscopy is sugge sted for further evaluation. 2. Bibasilar areas of consolidation which could be attributable to atelectasis, pneumonia, or aspirat ion pneumonitis. Follow-up evaluation is recommended. 3. Cardiomegaly and small to moderate-sized pericardial effusion. 4. Dense vascular calcifications. 5. Long-standing left hydronephrosis with renal cortical thinning. This finding was present on CT exa m in 2018. 6. Increased density as well as hypodense lesions superior pole right kidney. 7. Healing left anterior fifth and sixth rib fractures with indeterminate age left lateral seventh ri b fracture.
--- NOTE | 2019-06-13 20:50 | HP ---
PRIMARY CARE PHYSICIAN: Karlos Van MD CHIEF COMPLAINT: "My oxygen level was low at my doctor's appointment." HISTORY OF PRESENT ILLNESS: Ms. Aj Smyth is a 68-year-old woman, with a known history of COPD, who states she presented to her Rheumatology appointment yesterday and was noted to have low sats at 81%. It was repeated and continued to be low at 80% on room air. She states she does not use oxygen at home but has required oxygen in the past. She was advised to see her primary care physician today and again was noted to have low sats in the 80s. She was therefore advised to come to the emergency department. She states her claims assistant is Dr. Guerra who she saw approximately 1 month ago. States that she does feel short of breath at baseline, but it has not been worse than normal in recent days. Reports having a chronic cough that is stable and nonproductive without any hemoptysis. Denies having any fevers, chills, or sweats. Reports having some left lateral and left posterior chest wall pain ever since she had a fall 1 week ago. She states she was lightheaded and fell against the corner of the [facility]. Since then, she has had persisting pain that is usually brought on with certain movements and at times severe. She states it is sharp in nature. She did not seek any medical attention after the fall. She states she has still been able to move about around her home and went out to vote. She denies being sedentary since the fall. She is able to mobilize with the help of her walker. Denies any further falls. Denies having any dizziness. Has not had any urinary symptoms. No stool changes. No abdominal pain. Of note, the patient states she has been undergoing antibiotic treatment for lower extremity cellulitis involving both legs. She states her primary care doctor was pleased to see how significantly improved the swelling in her right lower extremity is. They are still erythematous and warm to touch, but the swelling has improved. She does report them being tender with some calf discomfort. Denies having any Dopplers done. Denies being on any anticoagulation and denies any history of DVT or PEs. EMERGENCY DEPARTMENT COURSE: In the emergency department, she underwent an EKG that showed normal sinus rhythm with a heart rate of 98. She had a chest x-ray done showing no acute process. There was some mild elevation of the right hemidiaphragm which is stable from previous study. LABORATORY STUDIES: Done showed an indeterminate troponin of 0.047. Lactic acid and procalcitonin are negative. Full blood count unremarkable. BUN 37, creatinine 2.48, GFR 19. Renal function essentially stable. LFTs unremarkable. She was noted to have sats of 86% on room air, which improved to 93% on 3 L. She was given azithromycin for COPD exacerbation and 125 mg of IV methylprednisolone. Also given DuoNeb. PAST MEDICAL HISTORY: 1. Diabetes mellitus type 2. 2. Peripheral neuropathy. 3. Kidney stones. 4. Hypertension. 5. History of cervical cancer. 6. Osteoarthritis. 7. Rheumatoid arthritis. 8. COPD. 9. Depression. PAST SURGICAL HISTORY: 1. Lithotripsy. 2. Bariatric surgery in 1999. 3. Cholecystectomy, open. 4. . 5. Hysterectomy. 6. Right hip replacement. 7. Left hip replacement. 8. Bilateral knee surgery. SOCIAL HISTORY: The patient mobilizes with the help of a walker. She has a history of tobacco use in the past, but quit in 2014. She lives with her family. Denies any alcohol consumption or illicit drug use. ALLERGIES: NITROFURANTOIN. CURRENT MEDICATIONS: 1. Amitriptyline. 2. Amlodipine. 3. Aspirin. 4. Bupropion. 5. Duloxetine. 6. Gabapentin. 7. Morphine. 8. Multivitamin. 9. Metoprolol. 10. Pioglitazone. 11. Pravastatin. 12. Zonisamide. PHYSICAL EXAMINATION: GENERAL: The patient appears well developed, well nourished, and in no acute distress. She is resting comfortably, eating on the stretcher. VITAL SIGNS: Temperature 98.6, pulse 96, blood pressure 139/78, respirations 17, O2 saturation 93% on 3 L. HEENT: Normocephalic and atraumatic. Pupils are equal, round, and reactive to light. Sclerae icterus. Oropharynx is clear. NECK: Supple. LUNGS: Notable for diffuse inspiratory and expiratory wheezing. No crackles. Tenderness to minimal palpation of the left lateral chest wall and the left posterior chest wall. No obvious bruising. No bony deformities appreciated on palpation. No subcutaneous emphysema present. ABDOMEN: Soft, nontender, nondistended. No guarding or rigidity. EXTREMITIES: Notable for erythema and warmth to the bilateral lower extremities with notable swelling of the right lower extremity and mild tenderness to the right calf with palpation. No edema present. Peripheral pulses equal and strong bilaterally. SKIN: Warm and dry. NEUROLOGIC: Alert and oriented x3. No neuro deficits on exam. INVESTIGATIONS: As mentioned above in HPI. IMPRESSION AND PLAN: Ms. Rocha is a pleasant 68-year-old woman, who is being admitted for management of the following; 1. Hypoxia secondary to chronic obstructive pulmonary disease exacerbation. We will continue IV Levaquin per discussion with Dr. Neil. White count is normal. Lactic acid and procalcitonin also normal. We will consult Pulmonary and her claims assistant, Dr. Guerra is on-call tomorrow. We will also obtain a CT of the chest given recent chest wall injury to rule out any underlying chest wall hematoma or other significant injuries. We will continue DuoNebs. We will also continue steroids. The patient may benefit from home O2 eval. 2. Left lateral chest wall pain/secondary to trauma. The patient with a fall 1 week ago. States it was due to feeling lightheaded. We will obtain orthostatic blood pressures. We will give very gentle IV hydration. UA negative for UTI. The patient is being treated for lower extremity cellulitis, which she feels may have contributed to her feeling unwell at that time. As mentioned above, we will obtain CT chest. 3. [id number] renal insufficiency. The patient with mildly elevated creatinine compared to baseline. We will give gentle IV hydration as mentioned above. BNP normal. Continue to monitor renal function. Day Team to decide if Nephrology consult indicated. 4. Lower extremity cellulitis. We will continue antibiotics which she states have helped significantly. We will obtain bilateral Doppler to rule out underlying deep venous thrombosis. 5. Diabetes mellitus. Monitor glucose and initiate sliding scale. 6. Hypertension. Monitor blood pressure and resume home medications once verified. 7. Gastrointestinal prophylaxis. Resume pantoprazole 40 mg b.i.d., which she takes at home. 8. Deep venous thrombosis prophylaxis. We will hold anticoagulation until CT chest confirms no underlying chest wall hematoma. PT and OT are consulted. 9. Code status, DNAR. Medical power of fishing rod mechanic is her son, Corby Rocha. Case discussed with Dr. Neil, who agrees with the plan of care as described above. Job ID: [id number]
[2019-06-13 22:59] LABS: Troponin I 0.039 ng/mL (< 0.028)
[2019-06-13] MEDS: Sodium Chloride 0.45% 1,000 ML IV SCH (23:03)
[2019-06-13] MEDS: methylPREDNISolone Sod Succ 40 MG VIAL IVP SCH (23:04)
[2019-06-13 23:50] VITALS: BMI 34.8
[2019-06-14 04:50] LABS: #Lymphocytes 0.6 thou/uL (1.20-3.40); #Monocytes 0.1 thou/uL (0.11-0.59); #Neutrophils 3.4 thou/uL (1.40-6.50); %Eosinophils 0.1 % (0.0-10.0); %Lymphocytes 13.8 % (21.0-51.0); %Monocytes 1.3 % (0.0-10.0); %Neutrophils 84.8 % (42.0-75.0); Hemoglobin 13.4 g/dL (12.0-16.0); Mean Corpuscular HGB CONC 31.6 g/dL (32.0-36.0); Mean Corpuscular Hemoglobin 30.3 pg (27.0-31.0); Mean Corpuscular Volume 95.6 fL (78.0-98.0); Mean Platelet Volume 10.4 fL (7.4-10.4); Platelet Count 161 thou/uL (130-400); RBC Distribution Width 15.9 % (11.5-14.5); Red Blood Cell (RBC) Count 4.44 mill/uL (4.20-5.40)
[2019-06-14 05:13] LABS: Anion Gap 15 mmol/L (10-20); BUN (Urea Nitrogen) 34 mg/dL (9.8-20.1); Calc. Creatinine Clearance 32 mL/min (70-130); Calcium 9.4 mg/dL (7.8-10.44); Carbon Dioxide 32 mmol/L (23-31); Chloride 96 mmol/L (98-107); Estimated GFR-MDRD 19; Glucose 305 mg/dL (80-115); Potassium 4.1 mmol/L (3.5-5.1); Sodium 139 mmol/L (136-145)
[2019-06-14] MEDS: methylPREDNISolone Sod Succ 40 MG VIAL IVP SCH ×4 (06:09→23:34)
[2019-06-14] MEDS: HumaLOG 300 UNITS/3 ML VIAL SC PRN ×3 (09:34→17:05)
--- NOTE | 2019-06-14 12:48 | CON ---
DATE OF CONSULTATION: HISTORY OF PRESENT ILLNESS: She is a 68-year-old, morbidly obese female, who is 99 kg, presented to the ER yesterday at 2:00 with low oxygen level, rattling in the chest, COPD exacerbation. She is scheduled for a sleep study and apparently has not had one done as yet. Her saturations were apparently in the 80s when she came into her primary care's office. Her vital signs in the ER revealed a temperature 98, blood pressure 130/63. They put her on low-flow O2. I do not see a documented O2 saturation in the ER. She is coughing some stuff, it is actually clear. She has severe limitation to activity. PAST MEDICAL HISTORY: Morbid obesity, diabetes, neuropathy, renal stone, hypertension, arthritis, rheumatoid, depression. PREVIOUS SURGERIES: Lithotripsy, hysterectomy, hip surgery, weight loss surgery. SOCIAL HISTORY: Former smoker, quit in 2014. ALLERGIES: MACRODANTIN. HOME MEDICATIONS: 1. Oxycodone. 2. BuSpar. 3. Pravachol 40. 4. Protonix 40. 5. Morphine. 6. MS Contin 30 b.i.d. 7. Gabapentin 3 capsules twice a day. 8. Cymbalta 60. 9. Amlodipine 2.5 started on steroids, Levaquin, neb treatments. REVIEW OF SYSTEMS: Otherwise 10 point negative. PHYSICAL EXAMINATION: VITAL SIGNS: Temperature 97, pulse 91, saturations 90 on 4 L, blood pressure . CHEST: Diffuse wheezing, rhonchi. CARDIAC: Normal S1 and S2. No gallops. ABDOMEN: No masses. IMPRESSION AND PLAN: 1. Chronic obstructive pulmonary disease exacerbation, bronchitis. CT chest shows no pneumonia, no lung masses. 2. Morbid obesity, polypharmacy, chronic pain. 3. Arthritis. I agree with present treatment, probably deescalate antibiotics in the next 24 hours. Aggressive PT. Consultation note 70 minutes, 50% direct patient care. Job ID: [id number]
[2019-06-14] MEDS: Zonisamide 25 MG CAP PO SCH ×2 (15:56→21:59)
--- NOTE | 2019-06-14 16:37 | CON ---
DATE OF CONSULTATION: 06/14/2019 REASON FOR CONSULTATION: Evaluate inflammatory changes in the lower extremities. HISTORY OF PRESENT ILLNESS: A 68-year-old patient with history of nephrolithiasis, hypertension, cervical cancer in remission, and rheumatoid arthritis on leflunomide as well as some form of bariatric surgery in 1999, presumably intestinal bypass procedure, who had been evaluated in her doctor's office for inflammatory changes in lower extremities and had been treated with oral antimicrobial therapy for presumable cellulitis. During the last visit on the day of admission, she was noted to have hypoxemia, and therefore, she was referred for admission. The patient herself did not have any symptoms of dyspnea, fever, chills, or cough or maybe mild increased cough. The initial findings included a BP 130/60, pulse 111, respiratory rate 20, temperature 98, and O2 saturation 87% and then 91 on 2 L. The exam showed clear breath sounds. Abdomen was soft and nontender. She had lower extremity erythematous changes. Other findings on admission included a normal urinalysis except for 4 to 6 wbc's. White cell count 6.3, hemoglobin 12.9, and platelets 170 with normal differential. Creatinine 2.50 and GFR at 19. Liver profile within normal limits. Albumin 3.9 and globulin 2.8. We have 2 sets of blood cultures, which are thus far negative. Urine culture, no growth at 24 hours. Currently, Ms. Rocha is sitting by the bedside. She is awake, alert, and oriented. No headaches. No respiratory symptoms at the moment. REVIEW OF SYSTEMS: The remainder aspect of review of systems is negative including absence of pain in the legs. She actually feels itching. MEDICAL HISTORY: Includes: 1. Obesity, bariatric surgery in 1999, done elsewhere. 2. Coronary artery disease with stenting. 3. Hypertension. 4. Gout. 5. CKD, stage 4. 6. Cervical malignancy, in remission after surgery. 7. Rheumatoid arthritis, on leflunomide. PAST SURGICAL HISTORY: 1. Bilateral TKRs. 2. Right hip replacement. 3. Right shoulder replacement. SOCIAL HISTORY: Former smoker about 10 years ago, quit smoking habit. No alcoholic beverage use or other drug use. ALLERGIES: MACRODANTIN. FAMILY HISTORY: Noncontributory. CURRENT MEDICATIONS: 1. [place]. 2. DuoNeb. 3. Zyloprim. 4. Elavil. 5. Lipitor. 6. Colchicine. 7. Cymbalta. 8. Folvite. 9. Neurontin. 10. Plaquenil. 11. Insulin. 12. Arava. 13. Levaquin. 14. Zyvox. 15. Solu-Medrol. PHYSICAL EXAMINATION: VITAL SIGNS: T-max 98.5, blood pressure 150/80, pulse 107, respirations 18, and O2 saturation 88% on 4 L. SKIN: Findings consistent with stasis dermatitis in the lower extremities, but not cellulitis. The patient has a peripheral IV access and voiding in the toilet. No lymphadenopathy. HEENT: Ocular movements conjugate. Oral cavity with dry oral mucosa. NECK: Supple. No jugular vein distention. LUNGS: Symmetric breath sounds with faint basilar inspiratory crackles. HEART: S1 and S2. Regular rate. No S3 or S4. ABDOMEN: Quite prominent panniculus. No organomegaly. No bladder distention. EXTREMITIES: She has bilateral TKRs without inflammatory changes. Pulses in lower extremities are 1+. Marked reduction in the edema present on admission. NEUROLOGIC: Awake, alert, oriented, follows commands. Good recollection. Speech is normal. FOLLOWUP LABORATORY DATA: White cell count 4.0, hemoglobin 13, platelets 161, and 84% neutrophils. Reports we have a chest CT scan from 06/12, this showed distended fluid-filled esophagus with particular matter seen in the esophagus, likely prior gastric sleeve procedure, bibasilar areas of consolidation, cardiomegaly, left hydronephrosis with renal cortical thinning, which is an old finding. ASSESSMENT: 1. Morbid obesity status post gastric sleeve procedure in 1999 with marked weight loss. 2. Chronic kidney disease, stage 4. 3. Edema. 4. Venous insufficiency with stasis dermatitis. 5. Hypoxemia. DISCUSSION: The findings in the lower extremities are consistent with stasis dermatitis rather than cellulitis and I would recommend compression stockings, but not antimicrobial therapy for this finding. The lung findings are consistent with aspiration, associated with her sleeve gastrectomy. It seems like the patient does not experience aspiration or at least is not aware of it. The patients with sleeve gastrectomy frequently have silent aspiration. The other concern is with proper B vitamin supplementation and other micronutrient deficiency due to the sleeve gastrectomy and I would consider checking her levels of thiamine, vitamin C, copper, and so on because those can be associated with skin changes as well. Job ID: [id number]
--- NOTE | 2019-06-14 17:44 | PDOC.HOSPP ---
- Subjective Encounter Date: 06/14/19 Encounter Time: 07:20 Subjective: Pt seen for followup re: acute hypoxic respiratory failure. Feels better. - Objective Vital Signs & Weight: Vital Signs (12 hours) Temp Pulse Pulse Pulse Pulse Resp BP 06/14/19 15:48 98.2 F 107 H 18 06/14/19 15:22 100 20 06/14/19 11:30 107 H 110 H 131/66 06/14/19 11:13 98.1 F 101 H 18 06/14/19 10:52 103 H 117 H 107 H 153/71 H 06/14/19 10:42 94 16 06/14/19 07:47 91 16 06/14/19 07:34 97.9 F 91 18 06/14/19 06:13 BP BP BP BP BP Pulse Ox Pulse Ox 06/14/19 15:48 157/71 H 92 L 06/14/19 15:22 06/14/19 11:30 157/85 H 88 L 06/14/19 11:13 153/71 H 88 L 06/14/19 10:52 131/66 87 L 06/14/19 10:42 06/14/19 07:47 06/14/19 07:34 141/70 H 90 L 06/14/19 06:13 142/68 H 131/73 146/68 H Pulse Ox Pulse Ox 06/14/19 15:48 06/14/19 15:22 06/14/19 11:30 89 L 06/14/19 11:13 06/14/19 10:52 87 L 90 L 06/14/19 10:42 06/14/19 07:47 06/14/19 07:34 06/14/19 06:13 Weight Weight 209 lb 6.4 oz I&O: 06/13/19 06/14/19 06/15/19 06:59 06:59 06:59 Intake Total 775 Balance 775 Result Diagrams: 06/14/19 04:15 06/14/19 04:15 Additional Labs: Accuchecks 06/14/19 06/14/19 06/14/19 16:39 10:58 09:32 POC Glucose 355 H 284 H 279 H Labs and MARs reviewed by me EKG Reviewed by me: Yes (Tele: sinus tachycardia) Hospitalist ROS - Review of Systems Respiratory: reports: cough, dry. denies: shortness of breath, hemoptysis, SOB with excertion, pleuritic pain, sputum, wheezing Cardiovascular: denies: chest pain, palpitations, orthopnea, paroxysmal noc. dyspnea, edema, light headedness Gastrointestinal: denies: nausea, vomiting, abdominal pain, diarrhea, constipation, melena, hematochezia Musculoskeletal: denies: neck pain, shoulder pain, arm pain, back pain, hand pain, leg pain, foot pain Skin: reports: rash Neurological: denies: weakness, numbness, incoordination, change in speech, confusion, seizures - Medication Medications: Active Medications Generic Name Dose Route Start Last Admin Trade Name Freq PRN Reason Stop Dose Admin Acetaminophen 650 mg 06/13/19 18:58 06/14/19 09:34 Tylenol PO 650 mg Q4H PRN Administration Headache/Fever/Mild Pain (1-3) Hydrocodone Bitart/Acetaminophen 1 tab 06/13/19 18:58 06/14/19 11:57 [place] 5/325 PO 1 tab Q4H PRN Administration Moderate Pain (4-6) Hydrocodone Bitart/Acetaminophen 2 tab 06/13/19 18:58 06/14/19 15:55 [place] 5/325 PO 2 tab Q4H PRN Administration Severe Pain (7-10) Albuterol/Ipratropium 3 ml 06/13/19 18:30 06/14/19 15:22 Duoneb NEB 3 ml [id number] BRENDA Administration Sodium Chloride 1,000 mls @ 50 mls/hr 06/13/19 20:00 06/13/19 23:03 1/2 Normal Saline IV 1,000 mls .Q20H BRENDA Administration Insulin Human Lispro 0 units 06/13/19 19:37 06/14/19 17:05 Humalog SC 6 unit .MILD SLIDING SCALE PRN Administration Mild Correctional Scale Methylprednisolone Sodium Succinate 40 mg 06/13/19 23:59 06/14/19 11:59 Solu-Medrol IVP 40 mg Q6HR BRENDA Administration Zonisamide 50 mg 06/14/19 15:00 06/14/19 15:56 Zonisamide PO 50 mg TID BRENDA Administration - Exam General Appearance: awake alert Eye: anicteric sclera ENT: moist mucosa Neck: supple, symmetric, no thyromegaly, no lymphadenopathy Heart: no gallops, no rubs Heart - other findings: S1, S2, reg, tachy Respiratory: CTAB, no rales, no ronchi, normal chest expansion, wheezes Gastrointestinal: soft, non-tender, non-distended, normal bowel sounds Extremities: no cyanosis Skin: no rashes Psychiatric: normal affect, normal behavior, A&O x 3 Hosp A/P (1) Acute respiratory failure with hypoxia Code(s): J96.01 - ACUTE RESPIRATORY FAILURE WITH HYPOXIA Status: Acute (2) COPD exacerbation Code(s): J44.1 - CHRONIC OBSTRUCTIVE PULMONARY DISEASE W (ACUTE) EXACERBATION Status: Acute (3) Acute worsening of stage 4 chronic kidney disease Code(s): N18.4 - CHRONIC KIDNEY DISEASE, STAGE 4 (SEVERE) Status: Acute (4) DM2 (diabetes mellitus, type 2) Status: Chronic (5) HTN (hypertension) Code(s): I10 - ESSENTIAL (PRIMARY) HYPERTENSION Status: Chronic - Plan Improving with oxygen, steroids and bronchodilators. Continue accuchecks and switch to moderate insulin sliding scale. Monitor vital signs, titrate antihypertensives as needed. ID consulted re: Zyvox use.
[2019-06-14] MEDS ORDERED: HumaLOG 300 UNITS/3 ML VIAL SC PRN (17:56)
[2019-06-14] MEDS: Mometasone/Formoterol 120 PUFF INHALER INH SCH (18:34)
[2019-06-14] MEDS ORDERED: Linezolid 600 MG TAB PO SCH (21:00)
[2019-06-14] MEDS: Gabapentin 400 MG CAP PO SCH (21:45)
[2019-06-14] MEDS: Atorvastatin Calcium 10 MG TAB PO SCH (21:45)
[2019-06-14] MEDS: Sodium Chloride 0.45% 1,000 ML IV SCH (21:47)
[2019-06-14] MEDS: oxyCODONE/Acetaminophen 5 mg/325 mg Tablet PO PRN (21:52)
[2019-06-14] MEDS: sulfaSALAzine 500 MG TAB PO SCH (22:00)
[2019-06-15] MEDS: methylPREDNISolone Sod Succ 40 MG VIAL IVP SCH (05:38)
[2019-06-15] MEDS: oxyCODONE/Acetaminophen 5 mg/325 mg Tablet PO PRN ×2 (05:46→16:38)
[2019-06-15] MEDS: Mometasone/Formoterol 120 PUFF INHALER INH SCH ×2 (07:03→18:43)
[2019-06-15] MEDS ORDERED: hydrALAZINE 20 MG/ML VIAL SLOW IVP PRN (08:32)
[2019-06-15] MEDS ORDERED: Cyanocobalamin 1000 MCG/ML VIAL IM SCH (09:00)
[2019-06-15] MEDS: Ferrous Sulfate 325 MG TAB PO SCH (09:15)
[2019-06-15] MEDS: DULoxetine 60 MG CAP PO SCH (09:16)
[2019-06-15] MEDS: Aspirin Chewable 81 MG TAB PO SCH (09:16)
[2019-06-15] MEDS: Bupropion 150 MG XL TAB PO SCH (09:16)
[2019-06-15] MEDS: Amitriptyline HCl 25 MG TAB PO SCH (09:16)
[2019-06-15] MEDS: Folic Acid 1 MG TAB PO SCH (09:16)
[2019-06-15] MEDS: Allopurinol 100 MG TAB PO SCH (09:16)
[2019-06-15] MEDS: sulfaSALAzine 500 MG TAB PO SCH ×2 (09:17→20:56)
[2019-06-15] MEDS: Pioglitazone HCl 15 MG TAB PO SCH (09:17)
[2019-06-15] MEDS: Multivit, Therapeutic 1 TAB PO SCH (09:17)
[2019-06-15] MEDS: Hydroxychloroquine Sulfate 200 MG TAB PO SCH (09:17)
[2019-06-15] MEDS: Gabapentin 400 MG CAP PO SCH ×2 (09:17→20:51)
[2019-06-15] MEDS: Zonisamide 25 MG CAP PO SCH ×3 (09:17→20:56)
[2019-06-15] MEDS: HumaLOG 300 UNITS/3 ML VIAL SC PRN ×2 (09:18→12:46)
[2019-06-15] MEDS: Colchicine 0.6 MG TAB PO SCH (09:21)
[2019-06-15 09:59] LABS: #Lymphocytes 0.4 thou/uL (1.20-3.40); #Monocytes 0.2 thou/uL (0.11-0.59); %Eosinophils 0.1 % (0.0-10.0); %Lymphocytes 4.6 % (21.0-51.0); %Monocytes 2.7 % (0.0-10.0); %Neutrophils 92.7 % (42.0-75.0); Hemoglobin 13.1 g/dL (12.0-16.0); Mean Corpuscular HGB CONC 31.7 g/dL (32.0-36.0); Mean Corpuscular Hemoglobin 30.2 pg (27.0-31.0); Mean Corpuscular Volume 95.3 fL (78.0-98.0); Mean Platelet Volume 10.3 fL (7.4-10.4); Platelet Count 161 thou/uL (130-400); RBC Distribution Width 15.8 % (11.5-14.5); Red Blood Cell (RBC) Count 4.35 mill/uL (4.20-5.40); White Blood Cell (WBC) Count 8.6 thou/uL (4.8-10.8)
[2019-06-15 10:17] LABS: Anion Gap 13 mmol/L (10-20); BUN (Urea Nitrogen) 36 mg/dL (9.8-20.1); Calc. Creatinine Clearance 36 mL/min (70-130); Calcium 9.4 mg/dL (7.8-10.44); Carbon Dioxide 30 mmol/L (23-31); Chloride 101 mmol/L (98-107); Estimated GFR-MDRD 22; Glucose 362 mg/dL (80-115); Potassium 4.4 mmol/L (3.5-5.1); Sodium 140 mmol/L (136-145)
[2019-06-15] MEDS: Leflunomide 10 mg Tablet PO SCH (10:24)
--- NOTE | 2019-06-15 13:43 | EKG ---
Test Reason : Blood Pressure : / mmHG Vent. Rate : 098 BPM Atrial Rate : 098 BPM P-R Int : 182 ms QRS Dur : 136 ms QT Int : 384 ms P-R-T Axes : 017 015 007 degrees QTc Int : 490 ms Normal sinus rhythm Possible Left atrial enlargement Right bundle branch block Inferior infarct , age undetermined Anteroseptal infarct , age undetermined Abnormal ECG Confirmed by NATIVIDAD PERES ([id number]), medical editor GEETA RENDON ([id number]) on 06/15/2019 1:43:34 PM Referred By: Confirmed By:NATIVIDAD Prasad
[2019-06-15] MEDS ORDERED: Bisacodyl 5 MG TAB PO PRN (14:59)
[2019-06-15] MEDS ORDERED: Bisacodyl 5 MG TAB PO SCH (15:00)
--- NOTE | 2019-06-15 15:22 | CON ---
DATE OF CONSULTATION: 06/15/2019 CONSULTING PHYSICIAN: Dr. Lucas. REASON FOR CONSULTATION: Acute kidney injury. REASON FOR ADMISSION: Shortness of breath. HISTORY OF PRESENT ILLNESS: A 68-year-old female with history of COPD, type 2 diabetes, kidney stones, hypertension, came to the hospital with shortness of breath and was found to have elevated creatinine. Nephrology was consulted. The patient is feeling better. No chest pain or palpitations. PAST MEDICAL HISTORY: Positive for type 2 diabetes, neuropathy, hypertension, cervical cancer, osteoarthritis, COPD, and depression. PAST SURGICAL HISTORY: Lithotripsy, bariatric surgery, cholecystectomy, , hysterectomy, and hip surgery. HOME MEDICATIONS: Reviewed. ALLERGIES: NITROFURANTOIN. SOCIAL HISTORY: No smoking, alcohol, or drugs. FAMILY HISTORY: No history of kidney disease. REVIEW OF SYSTEMS: The following complete review of systems was negative, unless otherwise mentioned in the HPI or below: Constitutional: Weight loss or gain, ability to conduct usual activities. Skin: Rash, itching. Eyes: Double vision, pain. ENT/Mouth: Nose bleeding, neck stiffness, pain, tenderness. Cardiovascular: Palpitations, dyspnea on exertion, orthopnea. Respiratory: Shortness of breath, wheezing, cough, hemoptysis, fever or night sweats. Gastrointestinal: Poor appetite, abdominal pain, heartburn, nausea, vomiting, constipation, or diarrhea. Genitourinary: Urgency, frequency, dysuria, nocturia. Musculoskeletal: Pain, swelling. Neurologic/Psychiatric: Anxiety, depression. Allergy/Immunologic: Skin rash, bleeding tendency. PHYSICAL EXAMINATION: GENERAL: This is an obese female, in no apparent distress. VITAL SIGNS: Temperature 97.8, pulse 75, respiratory rate 16, and blood pressure 134/63. HEENT: Atraumatic and normocephalic. Oral mucosa is moist. NECK: Supple. CV: S1 and S2. Rate and rhythm regular. RESPIRATORY: Clear. GASTROINTESTINAL: Abdomen is soft. MUSCULOSKELETAL: 1+ edema. DERMATOLOGIC: No skin rash. NEUROLOGIC: Alert and awake. PSYCHIATRIC: Mood and affect normal. LABORATORY DATA: Hemoglobin is 13.1. Potassium 4.4, BUN is 36, and creatinine is 2.1. ASSESSMENT AND PLAN: 1. Acute kidney injury on chronic kidney disease, stage 4. Monitor. 2. Hyperglycemia. 3. Edema, controlled. 4. History of hypertension. Titrate and monitor. 5. Anemia. 6. Type 2 diabetes. We will monitor renal function. Renal function close to her baseline. We will follow. Job ID: [id number]
--- NOTE | 2019-06-15 18:10 | PDOC.HOSPP ---
- Subjective Encounter Date: 06/15/19 Encounter Time: 10:40 Subjective: Pt seen for followup re: COPD exacerbation. Feels better today. - Objective Vital Signs & Weight: Vital Signs (12 hours) Temp Pulse Pulse Pulse Resp BP BP 06/15/19 16:25 98.0 F 107 H 18 06/15/19 14:15 96 16 06/15/19 12:57 106 H 101 H 163/80 H 136/80 06/15/19 11:17 97.8 F 75 16 06/15/19 10:29 92 16 06/15/19 09:15 06/15/19 07:37 97.7 F 97 18 06/15/19 06:54 98 16 BP BP BP Pulse Ox 06/15/19 16:25 150/67 H 150/67 H 91 L 06/15/19 14:15 92 L 06/15/19 12:57 06/15/19 11:17 134/63 94 L 06/15/19 10:29 92 L 06/15/19 09:15 129/72 06/15/19 07:37 171/81 H 92 L 06/15/19 06:54 94 L Weight Weight 205 lb 3 oz I&O: 06/14/19 06/15/19 06/16/19 06:59 06:59 07:59 Intake Total 775 1080 Output Total 1100 Balance 775 -20 Result Diagrams: 06/15/19 09:35 06/15/19 09:35 Additional Labs: Accuchecks 06/15/19 06/15/19 06/15/19 17:27 12:49 10:50 POC Glucose 159 H 275 H 386 H 06/15/19 06/14/19 05:47 20:46 POC Glucose 304 H 288 H Labs and MARs reviewed by me EKG Reviewed by me: Yes (Tele: sinus tachycardia) Hospitalist ROS - Review of Systems Cardiovascular: denies: chest pain, palpitations, orthopnea, paroxysmal noc. dyspnea, edema, light headedness Gastrointestinal: denies: nausea, vomiting, abdominal pain, diarrhea, constipation, melena, hematochezia - Medication Medications: Active Medications Generic Name Dose Route Start Last Admin Trade Name Freq PRN Reason Stop Dose Admin Acetaminophen 650 mg 06/13/19 18:58 06/14/19 09:34 Tylenol PO 650 mg Q4H PRN Administration Headache/Fever/Mild Pain (1-3) Hydrocodone Bitart/Acetaminophen 1 tab 06/13/19 18:58 06/14/19 11:57 [place] 5/325 PO 1 tab Q4H PRN Administration Moderate Pain (4-6) Hydrocodone Bitart/Acetaminophen 2 tab 06/13/19 18:58 06/14/19 15:55 [place] 5/325 PO 2 tab Q4H PRN Administration Severe Pain (7-10) Albuterol/Ipratropium 3 ml 06/13/19 18:30 06/15/19 14:15 Duoneb NEB 3 ml [id number] BRENDA Administration Allopurinol 100 mg 06/15/19 09:00 06/15/19 09:16 Zyloprim PO 100 mg DAILY BRENDA Administration Amitriptyline HCl 25 mg 06/15/19 09:00 06/15/19 09:16 Elavil PO 25 mg DAILY BRENDA Administration Aspirin 81 mg 06/15/19 09:00 06/15/19 09:16 Aspirin Chewable PO 81 mg DAILY BRENDA Administration Atorvastatin Calcium 10 mg 06/14/19 21:00 06/14/19 21:45 Lipitor PO 10 mg HS BRENDA Administration Bupropion HCl 300 mg 06/15/19 09:00 06/15/19 09:16 Wellbutrin Xl PO 300 mg DAILY BRENDA Administration Colchicine 0.6 mg 06/15/19 09:00 06/15/19 09:21 Colchicine PO Not Given DAILY BRENDA Cyanocobalamin 1,000 mcg 06/15/19 09:00 06/15/19 09:17 Vitamin B-12 IM 1,000 mcg Q7DAYS BRENDA Administration Duloxetine HCl 120 mg 06/15/19 09:00 06/15/19 09:16 Cymbalta PO 120 mg QAM BRENDA Administration Ferrous Sulfate 325 mg 06/15/19 08:00 06/15/19 09:15 Feosol PO 325 mg QAM-WM BRENDA Administration Folic Acid 1 mg 06/15/19 09:00 06/15/19 09:16 Folvite PO 1 mg DAILY BRENDA Administration Gabapentin 1,200 mg 06/14/19 21:00 06/15/19 09:17 Neurontin PO 1,200 mg BID BRENDA Administration Hydroxychloroquine Sulfate 200 mg 06/15/19 09:00 06/15/19 09:17 Plaquenil PO 200 mg DAILY BRENDA Administration Insulin Human Lispro 0 units 06/15/19 08:32 06/15/19 12:46 Humalog SC 9 unit .AGGRESSIVE SLIDING PRN Administration Aggressive Correctional Scale Leflunomide 20 mg 06/15/19 09:00 06/15/19 10:24 Arava PO 20 mg DAILY BRENDA Administration Levofloxacin 500 mg 06/15/19 06:00 06/15/19 05:38 Levaquin PO 06/20/19 06:01 500 mg 0600 BRENDA Administration Mometasone Furoate/Formoterol Fumar 2 puff 06/14/19 18:30 06/15/19 07:03 Dulera 200 Mcg/5 Mcg Inhaler INH 2 puff BID-RT BRENDA Administration Multivitamins 1 tab 06/15/19 09:00 06/15/19 09:17 Theragran PO 1 tab DAILY BRENDA Administration Oxycodone/Acetaminophen 1 tab 06/14/19 15:11 06/15/19 16:38 Percocet 5/325 PO 1 tab Q8H PRN Administration .BREAKTHROUGH Pain Pantoprazole Sodium 40 mg 06/14/19 21:00 06/15/19 09:17 Protonix PO 40 mg BID BRENDA Administration Pioglitazone HCl 30 mg 06/15/19 09:00 06/15/19 09:17 Actos PO 30 mg DAILY BRENDA Administration Sulfasalazine 1,000 mg 06/14/19 21:00 06/15/19 09:17 Azulfidine PO 1,000 mg BID BRENDA Administration Zonisamide 50 mg 06/14/19 15:00 06/15/19 14:37 Zonisamide PO 50 mg TID BRENDA Administration - Exam General Appearance: NAD Eye: anicteric sclera ENT: moist mucosa Neck: supple Heart: RRR Respiratory: CTAB, no wheezes Gastrointestinal: soft, non-tender Extremities: no cyanosis Psychiatric: normal affect, normal behavior Hosp A/P (1) Acute respiratory failure with hypoxia Code(s): J96.01 - ACUTE RESPIRATORY FAILURE WITH HYPOXIA Status: Acute (2) COPD exacerbation Code(s): J44.1 - CHRONIC OBSTRUCTIVE PULMONARY DISEASE W (ACUTE) EXACERBATION Status: Acute (3) Acute worsening of stage 4 chronic kidney disease Code(s): N18.4 - CHRONIC KIDNEY DISEASE, STAGE 4 (SEVERE) Status: Acute (4) DM2 (diabetes mellitus, type 2) Status: Chronic (5) HTN (hypertension) Code(s): I10 - ESSENTIAL (PRIMARY) HYPERTENSION Status: Chronic - Plan Improved. Oxygen requirements decreased. Switch to oral steroids and oral antibiotics. Switch to aggressive insulin sliding scale. Appreciate nephrology service input. Likely home tomorrow.
[2019-06-15] MEDS: Atorvastatin Calcium 10 MG TAB PO SCH (20:51)
[2019-06-15] MEDS: Docusate 100 MG CAP PO SCH ×2 (20:51→20:59)
[2019-06-16 04:33] LABS: #Lymphocytes 1.4 thou/uL (1.20-3.40); #Monocytes 0.7 thou/uL (0.11-0.59); #Neutrophils 6.2 thou/uL (1.40-6.50); %Basophils 0.3 % (0.0-1.0); %Eosinophils 0.2 % (0.0-10.0); %Lymphocytes 17.1 % (21.0-51.0); %Monocytes 8.2 % (0.0-10.0); %Neutrophils 74.2 % (42.0-75.0); Hemoglobin 12.4 g/dL (12.0-16.0); Mean Corpuscular HGB CONC 32.3 g/dL (32.0-36.0); Mean Corpuscular Hemoglobin 30.7 pg (27.0-31.0); Mean Platelet Volume 10.2 fL (7.4-10.4); Platelet Count 160 thou/uL (130-400); RBC Distribution Width 15.8 % (11.5-14.5); Red Blood Cell (RBC) Count 4.04 mill/uL (4.20-5.40); White Blood Cell (WBC) Count 8.4 thou/uL (4.8-10.8)
[2019-06-16 04:48] LABS: Anion Gap 12 mmol/L (10-20); BUN (Urea Nitrogen) 42 mg/dL (9.8-20.1); Calc. Creatinine Clearance 36 mL/min (70-130); Calcium 9.1 mg/dL (7.8-10.44); Carbon Dioxide 31 mmol/L (23-31); Chloride 102 mmol/L (98-107); Estimated GFR-MDRD 23; Glucose 175 mg/dL (80-115); Potassium 3.8 mmol/L (3.5-5.1); Sodium 141 mmol/L (136-145)
[2019-06-16] MEDS: Mometasone/Formoterol 120 PUFF INHALER INH SCH (06:59)
[2019-06-16] MEDS ORDERED: predniSONE 20 MG TAB PO SCH (08:00)
--- NOTE | 2019-06-16 08:36 | PRG ---
DATE OF SERVICE: 06/15/2019 SUBJECTIVE: This morning, she says she is feeling somewhat better, still slightly short of breath. X-ray shows bibasilar atelectatic changes with an elevated hemidiaphragm. All cultures are negative. White count is only 8000, creatinine is 2.1, and glucose 305. IMPRESSION: Chronic obstructive pulmonary disease exacerbation, bronchitis, culture negative. PLAN: Switch over to oral medication. PT, supportive care. Hopefully, home in the next several days. Job ID: [id number]
[2019-06-16] MEDS: Ferrous Sulfate 325 MG TAB PO SCH (09:02)
[2019-06-16] MEDS: Gabapentin 400 MG CAP PO SCH (09:02)
[2019-06-16] MEDS: Zonisamide 25 MG CAP PO SCH ×2 (09:03→15:06)
[2019-06-16] MEDS: Bupropion 150 MG XL TAB PO SCH (09:03)
[2019-06-16] MEDS: Hydroxychloroquine Sulfate 200 MG TAB PO SCH (09:03)
[2019-06-16] MEDS: Multivit, Therapeutic 1 TAB PO SCH (09:03)
[2019-06-16] MEDS: Aspirin Chewable 81 MG TAB PO SCH (09:03)
[2019-06-16] MEDS: DULoxetine 60 MG CAP PO SCH (09:03)
[2019-06-16] MEDS: Colchicine 0.6 MG TAB PO SCH (09:03)
[2019-06-16] MEDS: Allopurinol 100 MG TAB PO SCH (09:04)
[2019-06-16] MEDS: sulfaSALAzine 500 MG TAB PO SCH (09:04)
[2019-06-16] MEDS: Pioglitazone HCl 15 MG TAB PO SCH (09:04)
[2019-06-16] MEDS: Folic Acid 1 MG TAB PO SCH (09:05)
[2019-06-16] MEDS: Docusate 100 MG CAP PO SCH (09:05)
[2019-06-16] MEDS: Amitriptyline HCl 25 MG TAB PO SCH (09:05)
[2019-06-16] MEDS: oxyCODONE/Acetaminophen 5 mg/325 mg Tablet PO PRN (09:05)
[2019-06-16] MEDS: Leflunomide 10 mg Tablet PO SCH (10:09)
--- NOTE | 2019-06-16 12:15 | PRG ---
DATE OF SERVICE: 06/16/2019 SUBJECTIVE: The patient is eager to go home. She is doing better. She is less short of breath. OBJECTIVE: VITAL SIGNS: Her sats are 90% on room air, temperature is 97, pulse 105, blood pressure 130/61. When she ambulated, her oxygen saturation dropped in the 80s. LABORATORY STUDIES: White count 8000. Creatinine 2.4. ASSESSMENT AND PLAN: Respiratory failure, renal failure, morbid obesity, chronic obstructive pulmonary disease, and hypoventilation syndrome. Low-flow O2 prescribed for ambulation nighttime at 2 L. Follow up in the office at a later time. Job ID: [id number]
[2019-06-16 12:19] VITALS: TEMP 97.4
[2019-06-16] MEDS: HumaLOG 300 UNITS/3 ML VIAL SC PRN (12:58)
--- NOTE | 2019-06-16 13:25 | PRG ---
DATE OF SERVICE: 06/16/2019 SUBJECTIVE: Patient was seen and examined at bedside and overnight events noted. Patient denies any shortness of breath or chest pain or palpitation. No history of nausea or vomiting or diarrhea or fever or chills or cramps. OBJECTIVE: GENERAL: This is a well-built female, in no apparent distress. VITAL SIGNS: Temperature 97.4. Heart rate 100. Respiratory rate 20. Blood pressure 159/75. HEENT: Atraumatic, normocephalic. Oral mucosa is moist NECK: Supple. CARDIOVASCULAR: S1, S2 heard. Rate and rhythm regular. RESPIRATORY: Clear to auscultation. GASTROINTESTINAL: Abdomen is soft. MUSCULOSKELETAL: No tenderness. No edema. DERMATOLOGIC: No skin rash. NEUROLOGIC: Alert and awake and oriented X3. No focal neurologic deficits. Moving all the extremities. PSYCHIATRIC: Mood and affect normal. LABORATORY DATA: Potassium is 3.8, BUN is 42, and creatinine is 2.1. ASSESSMENT AND PLAN: 1. Acute kidney injury on chronic kidney disease, stage 4, stable. 2. Hyperglycemia. 3. Edema. 4. Hypertension. 5. Anemia. 6. Monitor renal function closely. Job ID: [id number]
[2019-06-16 15:06] VITALS: BP 143/76
--- NOTE | 2019-06-16 22:01 | DIS ---
DATE OF ADMISSION: 06/13/2019 DATE OF DISCHARGE: 06/16/2019 PRIMARY CARE PROVIDER: Dr. Karlos Van. DISCHARGE DIAGNOSES: 1. Chronic obstructive pulmonary disease exacerbation. 2. Acute hypoxic respiratory failure. 3. Acute on chronic stage 4 renal failure. CONDITION OF PATIENT ON THE DAY OF DISCHARGE: Stable. I assessed Ms. Aj Smyth on the day of discharge. She denies any chest pain or shortness of breath. Vital signs are stable. S1 and S2 are heard, regular. Lungs are clear to auscultation bilaterally. DISCHARGE MEDICATIONS: She is being discharged home on oral prednisone taper and levofloxacin 500 mg daily for 4 more days. Zyvox was discontinued. Otherwise, no change was made to her pre-admission home medications. CONSULTATIONS DURING THIS HOSPITALIZATION: Infectious Disease, Dr. Brody and Pulmonology, Dr. Guerra. HOSPITAL COURSE: Ms. Aj Smyth is a pleasant 68-year-old lady, who was admitted to [facility] on June 13, 2019 for COPD exacerbation. She improved with oxygen, steroids, bronchodilators, and antibiotics. She was also seen by Infectious Disease Services for evaluation regarding her lower extremity cellulitis. It had improved significantly and it was felt that the current findings were stasis dermatitis, and Zyvox was discontinued. She was also seen by Pulmonary and Critical Care Medicine Service and has been cleared for discharge. Many thanks for allowing me to participate in your patient's care. Please feel free to contact me with any questions or concerns. FOLLOWUP: Post acute care followup with primary care provider in 3 days. ACTIVITY: As tolerated. DIET: Heart healthy, low-sodium, renal and diabetic. DISCHARGE DESTINATION: Home. TIME SPENT: Total amount of time spent coordinating this discharge: 32 minutes. ADDENDUM: On the day of discharge, Ms. Aj Smyth had resting room air oxygen saturation of 91%. With exertion, the oxygen saturation dropped to 88%. It improved to 91 % after starting 2 L/minute of oxygen with exertion. She qualified for home oxygen. She will need to use oxygen at home. Arrangements are being made for home oxygen prior to discharge. Many thanks for allowing me to participate in your patient's care. Job ID: [id number] [id number]
--- NOTE | 2019-06-19 05:56 | PQF ---
CAROLA FREED DAVID [id number] [facility]265 [id number] CLINICAL DOCUMENTATION CLARIFICATION FORM: POST DISCHARGE Addendum to original discharge summary date: ____ Late entry note date: __ DATE: 06/19/2019 ATTN: Xavier Melendez Please exercise your independent, professional judgment in responding to the clarification form. Clinical indicators are provided on the bottom of this form for your review Acute Hypoxic Respiratory Failure Present on Admission (POA): [ x ] Yes [ ] No [ ] Unable to determine Coding guidelines require hospitals to identify whether a diagnosis was present on admission (POA) or not. To accurately assign the appropriate POA indicator, this information must be clearly documented within the medical record. CLINICAL INDICATORS - SIGNS / SYMPTOMS / LABS Vital signs 06/12 BP 133/63, Pulse 111, Resp 20, Temp 98 H&P p1 06/12 Francisca SILVARed Presented to her Rheumatology appointment yesterday and was now noted to have low sats at 81%. It was repeated and continued to be low at 80% on room air H&P p1 06/12 Francisca SILVA-C States that she does feel short of breath at baseline, but it has not been worse than normal in recent days H&P p1 06/12 Francisca WHEELERC Reports having a chronic cough that is stable and non productive without hemoptysis H&P p1 06/12 Francisca PA-C LUNGS: Notable for diffuse inspiratory and expiratory wheezing H&P p3 06/12 Francisca PA-C Hypoxia secondary to chronic obstructive pulmonary disease exacerbation Hospitalist PN p1 06/13 Dr Lucas Pt seen for followup re: Acute hypoxic respiratory failure RISK FACTORS: H&P p1 3 68 year-old woman H&P p2 3/ Rheumatoid Arthritis H&P p2 3 HTN H&P p2 3 DM H&P p2 06/12 Quit smoking H&P p3 06/12 - COPD exacerbation H&P p4 06/12 - Acute on Chronic Kidney failure H&P p4 06/12 - Left lateral chest wall pain/secondary to trauma Consult p2 06/13 Bronchitis Consult p2 06/13 Morbid obesity PN p1 06/15 Hypoventilation syndrome TREATMENT: Respiratory panel 06/12 Oxygen 3L Chest X-ray ordered 06/12JUN 10 -Ventolin 2.5mg neb JUN 10 Duoneb 3ml neb JUN 10 IV Levofloxacin 750mg JUN 10 Solu-Medrol 40mg IV JUN 10 Levaquin 500mg po JUN 10 Actos 30mg po JUN 10 Prednisone 40mg po Respiratory consult 06/13 Avila Castellanos Pulmo medicine consult 06/[address] 06/12 Shmuel Burns (This form is maintained as a part of the permanent medical record) 2014 [employer], [employer]. All Rights Reserved [email or web address]
== END 2019-06-16 17:02 | disposition home or self-care (01) | DRG 189 ==
LOC: ERS 14:19 → 2NO 17:20
PROVIDERS: ADMIT Internal Medicine; ATTEND Internal Medicine
DX: J96.01 Acute respiratory failure with hypoxia (principal); J44.1 Chronic obstructive pulmonary disease with (acute) exacerbation; N18.4 Chronic kidney disease, stage 4 (severe); N17.9 Acute kidney failure, unspecified; E66.2 Morbid (severe) obesity with alveolar hypoventilation; Z66 Do not resuscitate; I87.2 Venous insufficiency (chronic) (peripheral); E11.22 Type 2 diabetes mellitus with diabetic chronic kidney disease; E11.42 Type 2 diabetes mellitus with diabetic polyneuropathy; F32.9 Major depressive disorder, single episode, unspecified; M06.9 Rheumatoid arthritis, unspecified; M19.91 Primary osteoarthritis, unspecified site; I12.9 Hypertensive chronic kidney disease with stage 1 through stage 4 chronic kidney disease, or unspecified chronic kidney disease; Z96.643 Presence of artificial hip joint, bilateral; J40 Bronchitis, not specified as acute or chronic; Z98.84 Bariatric surgery status; D63.1 Anemia in chronic kidney disease; E11.65 Type 2 diabetes mellitus with hyperglycemia; Z85.41 Personal history of malignant neoplasm of cervix uteri; Z87.442 Personal history of urinary calculi; Z90.710 Acquired absence of both cervix and uterus; Z90.49 Acquired absence of other specified parts of digestive tract; Z88.1 Allergy status to other antibiotic agents; Z79.899 Other long term (current) drug therapy; Z79.82 Long term (current) use of aspirin; Z68.34 Body mass index [BMI] 34.0-34.9, adult
CPT/HCPCS: 36415; 36416; 71045; 71250; 80048; 80053; 81003; 81015; 82180; 82607; 83605; 83880; 84145; 84425; 84484; 84590; 85025; 87040; 87086; 93005; 93970; 94640; 94644; 96374; 96375; J0456; J1956; J2920; J2930; J3420; J7512; J7611; J7620

== ENCOUNTER 2019-07-04 13:11 | Outpatient (CLI) | payer MEDICARE, OTHER ==
--- NOTE | 2019-07-04 14:40 | CT ---
CT abdomen and pelvis noncontrast HISTORY: Flank pain. Left ureteral stone. COMPARISON: 05/19/2017. FINDINGS: Severe atrophy of the left kidney and prominent left hydroureteronephrosis is again demonst rated to the level of a mid to distal left ureteral calculus measuring up to 1.5 cm greatest length by 1.0 cm diameter. The right renal collecting system and ureter are decompressed. Calcifications wit hin the central aspect of the right kidney are favored to be vascular in origin. Urinary bladder is predominantly obscured by beam hardening artifact from bilateral hip prostheses. Lack of contrast limits evaluation for other abnormalities. There is prominent calcification througho ut the arterial structures including the coronary arteries. Mild fusiform ectasia of the lower abdominal aorta, stable. Small amount of pericardial fluid evident. Chronic atelectasis at the right lateral lung base is stable. Minimal right pleural fluid is again de monstrated. Old left lower rib fractures. Multiple tiny hyperdense and simple cysts arising from the cortex of the kidneys are unchanged from t he previous exam. Nonspecific, nonenlarged lymph nodes throughout the retroperitoneum. No evidence of bowel obstruction. Eventration of the lower anterior abdominal wall with protrusion of abdominal fat and nonobstructed bowel similar in appearance to the prior study. True herniation favored to not be present. IMPRESSION : Chronic high-grade obstruction at a 1.5 cm mid to distal left ureteral calculus with severe atrophy o f the left kidney. Stable. Prominent atherosclerosis. Minimal pericardial fluid and right pleural fluid. Chronic-type findings are stable.
== END 2019-07-04 13:12 | disposition home or self-care (01) ==
LOC: BICCT 13:11
PROVIDERS: ATTEND Urology
DX: N20.2 Calculus of kidney with calculus of ureter (principal); N26.1 Atrophy of kidney (terminal); I25.10 Atherosclerotic heart disease of native coronary artery without angina pectoris; I70.90 Unspecified atherosclerosis; J94.8 Other specified pleural conditions; I31.8 Other specified diseases of pericardium
CPT/HCPCS: 74176

== ENCOUNTER 2019-07-11 11:41 | Inpatient (IN) | payer MEDICARE, OTHER ==
[2019-07-11] MEDS ORDERED: Albuterol 200 PUFF (6.7GM INHALER) ONE (12:09)
--- NOTE | 2019-07-11 12:42 | RAD ---
EXAM: Portable chest PROVIDED CLINICAL HISTORY: Chest pain COMPARISON: 06/13/2019 FINDINGS: Cardiac and mediastinal silhouette is unchanged in appearance. Vascular calcification is again seen. Stable elevation of the right hemidiaphragm. No focal consolidation, pleural fluid or pneumothorax evident. IMPRESSION: No radiographic evidence for an acute cardiopulmonary process.
[2019-07-11 13:17] LABS: #Lymphocytes 0.7 thou/uL (1.20-3.40); #Monocytes 0.2 thou/uL (0.11-0.59); #Neutrophils 1.5 thou/uL (1.40-6.50); %Basophils 1.6 % (0.0-1.0); %Eosinophils 0.1 % (0.0-10.0); %Lymphocytes 29.8 % (21.0-51.0); %Monocytes 7.8 % (0.0-10.0); %Neutrophils 60.7 % (42.0-75.0); Hemoglobin 12.2 g/dL (12.0-16.0); Mean Corpuscular HGB CONC 31.9 g/dL (32.0-36.0); Mean Corpuscular Hemoglobin 28.7 pg (27.0-31.0); Mean Corpuscular Volume 90.2 fL (78.0-98.0); Mean Platelet Volume 10.9 fL (7.4-10.4); Platelet Count 108 thou/uL (130-400); RBC Distribution Width 15.4 % (11.5-14.5); Red Blood Cell (RBC) Count 4.25 mill/uL (4.20-5.40); White Blood Cell (WBC) Count 2.4 thou/uL (4.8-10.8)
[2019-07-11 13:36] LABS: Platelet Morphology Comment Appears Decreased; RBC Morphology Normal
[2019-07-11 13:45] LABS: ALT (SGPT) 15 U/L (8-55); AST (SGOT) 41 U/L (5-34); Albumin 3.6 g/dL (3.4-4.8); Alkaline Phosphatase 67 U/L (40-110); Anion Gap 17 mmol/L (10-20); BUN (Urea Nitrogen) 22 mg/dL (9.8-20.1); Bilirubin, Total 0.3 mg/dL (0.2-1.2); Calc. Creatinine Clearance 0 mL/min (70-130); Calcium 8.4 mg/dL (7.8-10.44); Carbon Dioxide 24 mmol/L (23-31); Chloride 102 mmol/L (98-107); Estimated GFR-MDRD 29; Globulin 3.2 g/dL (2.4-3.5); Glucose 103 mg/dL (80-115); Protein, Total 6.8 g/dL (6.0-8.3); Sodium 138 mmol/L (136-145)
[2019-07-11 13:51] LABS: CKMB 1.8 ng/mL (0-6.6)
[2019-07-11] MEDS ORDERED: Aspirin Chewable 81 MG TAB ONE (14:51)
[2019-07-11] MEDS ORDERED: Azithromycin 500 MG VIAL ONE (15:06)
[2019-07-11] MEDS ORDERED: Senokot S 8.6-50 MG TAB PO PRN (16:46)
[2019-07-11 16:59] LABS: Troponin I 0.062 ng/mL (< 0.028)
[2019-07-11] MEDS ORDERED: Hydroxychloroquine Sulfate 200 MG TAB PO SCH (17:00)
[2019-07-11 17:15] VITALS: BMI 34.0
[2019-07-11] MEDS: Acetaminophen 325 MG TAB PO PRN (17:51)
[2019-07-11] MEDS ORDERED: Fioricet 325/50/40 mg Tablet PO PRN (18:12)
--- NOTE | 2019-07-11 18:56 | HP ---
CHIEF COMPLAINT: Generalized body aches and pains, generalized weakness. HISTORY OF PRESENT ILLNESS: The patient is a very pleasant 68-year-old female with a past medical history of rheumatoid arthritis, currently on hydroxychloroquine and sulfasalazine, who presents to the hospital with complaints of generalized body aches and pains, generalized weakness, cough, headache, body aches going on for the past week. The patient stated that she recently visited her sister in [place] from June 23 to and when she returned, she started feeling unwell. She stated that she just felt very weak, could not walk, could not do very many things. Denies any fevers or chills. She does have a cough with no sputum production. So, she went to her PCP's office on Monday and was tested for COVID and was notified that it was positive. She is currently at normal baseline oxygen 2 to 3 L of nasal cannula. She feels mild shortness of breath on exertion, however, she feels that her other symptoms which including headache, cough, body aches and pains, and generalized weakness are more severe than her shortness of breath. PAST MEDICAL HISTORY: She has rheumatoid arthritis; peripheral neuropathy; hypertension; osteoarthritis; COPD, on 2 to 3 L of oxygen; and depression. PAST SURGICAL HISTORY: She has had bariatric surgery in 1999, cholecystectomy, , hysterectomy, right hip replacement, left hip replacement, and bilateral knee surgery. SOCIAL HISTORY: She currently denies any smoking. She is a former smoker, quit in 2014. She was a heavy smoker. Denies any drug use or alcohol use. She is currently a full code and her son is her POA, Corby Rocha, phone #[phone]. ALLERGIES: SHE IS ALLERGIC TO NITROFURANTOIN, UNCLEAR REACTION. MEDICATIONS: She is on: 1. Hydroxychloroquine 200 mg daily. 2. Arava 20 mg daily. 3. Pantoprazole 40 mg twice a day. 4. Sulfasalazine 1000 mg twice a day. 5. Folic acid one p.o. daily. 6. Gabapentin 1200 mg twice a day. 7. She is on Breo 100 mcg/25 mcg one inhalation daily. 8. Amlodipine 5 mg daily. 9. Wellbutrin 200 mg q.a.m. REVIEW OF SYSTEMS: All negative except for the ones mentioned above in the HPI. PHYSICAL EXAMINATION: VITAL SIGNS: Temperature is 99.6, pulse 97, respiratory rate 20, and oxygen saturation 94% on 2 L, and blood pressure 141/64. GENERAL: The patient is awake, alert, and oriented x3. She does appear ill. CV: S1 and S2 present. No tachycardia. No murmurs heard. LUNGS: She has some diminished breath sounds to bilateral lower lung bases. No rhonchi or wheezes noted. ABDOMEN: Obese. Bowel sounds are present x2. She does have some pain on palpation on epigastric and right upper quadrant. EXTREMITIES: Just mild, 1+ edema. Pedal pulses are present x2. NEUROVASCULAR: No focal deficits noted. SKIN: No cuts, lesions, or bruises noted. LABORATORY RESULTS: WBCs of 2.4, hemoglobin of 12.2, hematocrit of 38.3, and platelets of 108. Chemistry; sodium of 138, potassium of 5.0, BUN of 22, and creatinine of 1.73. Her AST is 41, ALT is 15. Troponin initially was 0.065. She did have a chest x-ray, which did not indicate any acute abnormalities. No infiltrates were noted. ASSESSMENT AND PLAN: The patient is a 68-year-old female, who presents to the hospital with complaints of worsening shortness of breath. 1. Shortness of breath, most likely secondary to underlying COVID infection versus chronic obstructive pulmonary disease exacerbation. However, she currently does not have elevated sputum production. She does have a cough. Her COVID test was positive. I will start her on hydroxychloroquine 400 mg twice a day for one day and then 200 mg twice a day. She is currently on 2 to 3 L, which is her baseline. We will start her on some albuterol inhalers. However, she does not have significant wheezing on examination. If her respiratory status does worsen, we will get Pulmonology to see her. 2. Chronic kidney disease, stage 3. Again, we will continue to monitor. We will hold all nephrotoxins. 3. Mildly elevated troponins, could be demand related. EKG was reviewed. No acute findings were noted. I have asked for her old EKG for comparison reason. She currently does not have any chest pain. She has never had an echocardiogram, I will order an echocardiogram on given her elevated troponins. 4. Rheumatoid arthritis. Again, I will continue the hydroxychloroquine. I will hold off on the sulfasalazine and Arava for now and we will continue to monitor. 5. Leukopenia. This is most likely secondary to her COVID virus. 6. Thrombocytopenia. Again, this is most likely secondary to her underlying COVID infection. 7. Deep venous thrombosis prophylaxis. We will put her on either subcu Lovenox or heparin. Job ID: [id number]
[2019-07-11 19:30] LABS: Troponin I 0.066 ng/mL (< 0.028)
[2019-07-11] MEDS: Atorvastatin Calcium 10 MG TAB PO SCH (19:44)
[2019-07-12 04:55] LABS: #Lymphocytes 0.8 thou/uL (1.20-3.40); #Monocytes 0.2 thou/uL (0.11-0.59); %Basophils 0.3 % (0.0-1.0); %Eosinophils 0.4 % (0.0-10.0); %Lymphocytes 37.1 % (21.0-51.0); %Monocytes 10.9 % (0.0-10.0); %Neutrophils 51.2 % (42.0-75.0); Hemoglobin 11.9 g/dL (12.0-16.0); Mean Corpuscular HGB CONC 32.4 g/dL (32.0-36.0); Mean Corpuscular Hemoglobin 29.6 pg (27.0-31.0); Mean Corpuscular Volume 91.3 fL (78.0-98.0); Mean Platelet Volume 10.9 fL (7.4-10.4); Platelet Count 102 thou/uL (130-400); RBC Distribution Width 15.4 % (11.5-14.5); Red Blood Cell (RBC) Count 4.02 mill/uL (4.20-5.40)
[2019-07-12 05:08] LABS: Anion Gap 13 mmol/L (10-20); BUN (Urea Nitrogen) 21 mg/dL (9.8-20.1); Calc. Creatinine Clearance 48 mL/min (70-130); Calcium 8.4 mg/dL (7.8-10.44); Carbon Dioxide 25 mmol/L (23-31); Chloride 106 mmol/L (98-107); Estimated GFR-MDRD 30; Glucose 117 mg/dL (80-115); Potassium 4.2 mmol/L (3.5-5.1); Sodium 140 mmol/L (136-145)
[2019-07-12 05:35] LABS: Band 10 % (5-11); Eosinophils 1 % (0-10); Lymphocytes 42 % (21-51); MDiff Complete? YES; Monocytes 5 % (0-10); Neutrophil 42 % (42-75); Platelet Morphology Comment Appears Decreased
[2019-07-12] MEDS: Amitriptyline HCl 25 MG TAB PO SCH (08:24)
[2019-07-12] MEDS: Aspirin Chewable 81 MG TAB PO SCH (08:25)
[2019-07-12] MEDS: Acetaminophen 325 MG TAB PO PRN ×3 (08:25→22:06)
[2019-07-12] MEDS: Ferrous Sulfate 325 MG TAB PO SCH (08:27)
[2019-07-12] MEDS ORDERED: Hydroxychloroquine Sulfate 200 MG TAB PO SCH (09:00)
[2019-07-12] MEDS ORDERED: Enoxaparin Sodium 30 MG/0.3 ML SYRINGE SC SCH (09:00)
[2019-07-12] MEDS ORDERED: Benzonatate 100 MG CAP PO PRN (09:05)
[2019-07-12] MEDS ORDERED: traMADol HCl 50 MG TAB PO SCH (09:30)
[2019-07-12 09:40] LABS: ALT (SGPT) 10 U/L (8-55); AST (SGOT) 28 U/L (5-34); Albumin 3.2 g/dL (3.4-4.8); Alkaline Phosphatase 59 U/L (40-110); Bilirubin, Direct 0.2 mg/dL (0.1-0.3); Bilirubin, Total 0.4 mg/dL (0.2-1.2); Protein, Total 6.2 g/dL (6.0-8.3)
[2019-07-12 10:24] LABS: Troponin I 0.059 ng/mL (< 0.028)
[2019-07-12] MEDS: Bupropion 150 MG XL TAB PO SCH (10:48)
[2019-07-12] MEDS: PROVENTIL INHALER 6.7 G (200 INHALATIONS) INH SCH ×3 (10:50→18:20)
[2019-07-12 14:27] LABS: Troponin I 0.063 ng/mL (< 0.028)
[2019-07-12 18:36] LABS: Troponin I 0.054 ng/mL (< 0.028)
[2019-07-12] MEDS: Hydroxychloroquine Sulfate 200 MG TAB PO SCH (21:07)
[2019-07-12] MEDS: Atorvastatin Calcium 10 MG TAB PO SCH (21:07)
[2019-07-12] MEDS ORDERED: cloNIDine 0.1 MG TAB PO PRN (21:31)
[2019-07-13] MEDS: PROVENTIL INHALER 6.7 G (200 INHALATIONS) INH SCH ×7 (00:50→22:38)
[2019-07-13] MEDS: Acetaminophen 325 MG TAB PO PRN ×3 (04:27→22:46)
[2019-07-13] MEDS: Folic Acid 1 MG TAB PO SCH (08:05)
[2019-07-13] MEDS: Amitriptyline HCl 25 MG TAB PO SCH (08:05)
[2019-07-13] MEDS: Hydroxychloroquine Sulfate 200 MG TAB PO SCH ×2 (08:05→20:23)
[2019-07-13] MEDS: Multivit, Therapeutic 1 TAB PO SCH (08:05)
[2019-07-13] MEDS: Bupropion 150 MG XL TAB PO SCH (08:05)
[2019-07-13] MEDS: Aspirin Chewable 81 MG TAB PO SCH (08:06)
[2019-07-13] MEDS: Enoxaparin Sodium 40 MG/0.4 ML SYRINGE SC SCH (08:06)
[2019-07-13] MEDS: Ferrous Sulfate 325 MG TAB PO SCH (08:06)
[2019-07-13] MEDS ORDERED: Non-Formulary Item 1 EACH (Bupropion Hcl [Wellbutrin Xl] 300 MG) PO SCH (09:00)
[2019-07-13] MEDS: Gabapentin 300 MG CAP PO SCH ×2 (15:30→20:21)
--- NOTE | 2019-07-13 16:41 | PDOC.HOSPP ---
- Subjective Encounter Date: 07/13/19 Encounter Time: 16:45 Subjective: pt up in bed no complains of chest pain, she does have some headache. she did have a fever last night. - Objective Vital Signs & Weight: Vital Signs (12 hours) Temp Pulse Resp BP BP Pulse Ox 07/13/19 15:23 98.8 F 99 18 135/72 95 07/13/19 11:00 99.8 F H 94 20 131/61 94 L 07/13/19 08:00 99.5 F 108 H 20 157/74 H 91 L Weight Weight 210 lb 8.663 oz I&O: 07/12/19 07/13/19 07/14/19 06:59 06:59 06:59 Intake Total 240 1460 Output Total 400 500 Balance -160 960 Result Diagrams: 07/14/19 04:41 07/14/19 04:41 Hospitalist ROS - Review of Systems Cardiovascular: denies: chest pain, palpitations, orthopnea, paroxysmal noc. dyspnea, edema, light headedness, other Gastrointestinal: denies: nausea, vomiting, abdominal pain, diarrhea, constipation, melena, hematochezia, other - Medication Medications: Active Medications Generic Name Dose Route Start Last Admin Trade Name Freq PRN Reason Stop Dose Admin Acetaminophen 650 mg 07/11/19 16:46 07/13/19 11:08 Tylenol PO 650 mg Q4H PRN Administration Headache/Fever/Mild Pain (1-3) Albuterol Sulfate 1 puff 07/12/19 10:30 07/13/19 15:28 Proventil Hfa INH 1 puff [id number] BRENDA Administration Amitriptyline HCl 25 mg 07/12/19 09:00 07/13/19 08:05 Elavil PO Not Given DAILY BRENDA Aspirin 81 mg 07/12/19 09:00 07/13/19 08:06 Aspirin Chewable PO 81 mg DAILY BRENDA Administration Atorvastatin Calcium 10 mg 07/11/19 21:00 07/12/19 21:07 Lipitor PO 10 mg QPM BRENDA Administration Bupropion HCl 300 mg 07/12/19 09:00 07/13/19 08:05 Wellbutrin Xl PO 300 mg DAILY BRENDA Administration Clonidine 0.1 mg 07/12/19 21:31 07/12/19 22:06 Catapres PO 0.1 mg Q4H PRN Administration SBP Greater Than 180 Enoxaparin Sodium 40 mg 07/13/19 09:00 07/13/19 08:06 Lovenox SC 40 mg 0900 BRENDA Administration Ferrous Sulfate 325 mg 07/12/19 09:00 07/13/19 08:06 Feosol PO 325 mg DAILY BRENDA Administration Folic Acid 1 mg 07/13/19 09:00 07/13/19 08:05 Folvite PO 1 mg DAILY BRENDA Administration Gabapentin 300 mg 07/13/19 15:00 07/13/19 15:30 Neurontin PO 300 mg TID BRENDA Administration Hydroxychloroquine Sulfate 200 mg 07/12/19 21:00 07/13/19 08:05 Plaquenil PO 200 mg BID BRENDA Administration Multivitamins 1 tab 07/13/19 09:00 07/13/19 08:05 Theragran PO 1 tab DAILY BRENDA Administration Pantoprazole Sodium 40 mg 07/12/19 21:00 07/13/19 08:05 Protonix PO 40 mg BID BRENDA Administration - Exam Neck: negative: supple, symmetric, no JVD, no thyromegaly, no lymphadenopathy, no carotid bruit, JVD Heart: negative: RRR, no murmur, no gallops, no rubs, normal peripheral pulses, irregular, diminshed peripheral pulses, murmur present, II/IV, III/IV Respiratory - other findings: decrease breath sounds to lower lungs Hosp A/P (1) COPD (chronic obstructive pulmonary disease) Status: Acute (2) COVID-19 virus detected Code(s): U07.1 - COVID-19 Status: Acute (3) Leukopenia Code(s): D72.819 - DECREASED WHITE BLOOD CELL COUNT, UNSPECIFIED Status: Acute (4) SOB (shortness of breath) Code(s): R06.02 - SHORTNESS OF BREATH Status: Acute (5) DM2 (diabetes mellitus, type 2) Status: Chronic (6) HTN (hypertension) Code(s): I10 - ESSENTIAL (PRIMARY) HYPERTENSION Status: Chronic - Plan will continue hydroxychloroquine. pt is still on oxy 2-3L, no need for abx for now. she does have a headache and some chest pain. her trops are mildly elevated possible some viral myocarditis. will monitor. echo pending. she did have some loose stools will monitor. she had fever of 101 will monitor, if she has recurrent will get blood cx and cxr. clinically pt states that she feels well. will hold her RA meds for now. 07/12 pt states she feels well overall and wants to go home. I educated her that is she is afebrile and continues to feel well possible discharge. will monitor. she has no more loose stools. I have encouraged her to drink more water. she has no more chest pain.
--- NOTE | 2019-07-13 16:42 | PDOC.HOSPP ---
- Subjective Encounter Date: 07/12/19 Encounter Time: 16:00 Subjective: pt up in bed stats that she feels better today. - Objective Vital Signs & Weight: Vital Signs (12 hours) Temp Pulse Resp BP BP Pulse Ox 07/13/19 15:23 98.8 F 99 18 135/72 95 07/13/19 11:00 99.8 F H 94 20 131/61 94 L 07/13/19 08:00 99.5 F 108 H 20 157/74 H 91 L Weight Weight 210 lb 8.663 oz I&O: 07/12/19 07/13/19 07/14/19 06:59 06:59 06:59 Intake Total 240 1460 Output Total 400 500 Balance -160 960 Result Diagrams: 07/14/19 04:41 07/14/19 04:41 Hospitalist ROS - Review of Systems Cardiovascular: denies: chest pain, palpitations, orthopnea, paroxysmal noc. dyspnea, edema, light headedness, other Gastrointestinal: denies: nausea, vomiting, abdominal pain, diarrhea, constipation, melena, hematochezia, other Genitourinary: denies: dysuria, frequency, incontinence, hematuria, retention, other - Medication Medications: Active Medications Generic Name Dose Route Start Last Admin Trade Name Freq PRN Reason Stop Dose Admin Acetaminophen 650 mg 07/11/19 16:46 07/13/19 11:08 Tylenol PO 650 mg Q4H PRN Administration Headache/Fever/Mild Pain (1-3) Albuterol Sulfate 1 puff 07/12/19 10:30 07/13/19 15:28 Proventil Hfa INH 1 puff [id number] BRENDA Administration Amitriptyline HCl 25 mg 07/12/19 09:00 07/13/19 08:05 Elavil PO Not Given DAILY BRENDA Aspirin 81 mg 07/12/19 09:00 07/13/19 08:06 Aspirin Chewable PO 81 mg DAILY BRENDA Administration Atorvastatin Calcium 10 mg 07/11/19 21:00 07/12/19 21:07 Lipitor PO 10 mg QPM BRENDA Administration Bupropion HCl 300 mg 07/12/19 09:00 07/13/19 08:05 Wellbutrin Xl PO 300 mg DAILY BRENDA Administration Clonidine 0.1 mg 07/12/19 21:31 07/12/19 22:06 Catapres PO 0.1 mg Q4H PRN Administration SBP Greater Than 180 Enoxaparin Sodium 40 mg 07/13/19 09:00 07/13/19 08:06 Lovenox SC 40 mg 0900 BRENDA Administration Ferrous Sulfate 325 mg 07/12/19 09:00 07/13/19 08:06 Feosol PO 325 mg DAILY BRENDA Administration Folic Acid 1 mg 07/13/19 09:00 07/13/19 08:05 Folvite PO 1 mg DAILY BRENDA Administration Gabapentin 300 mg 07/13/19 15:00 07/13/19 15:30 Neurontin PO 300 mg TID BRENDA Administration Hydroxychloroquine Sulfate 200 mg 07/12/19 21:00 07/13/19 08:05 Plaquenil PO 200 mg BID BRENDA Administration Multivitamins 1 tab 07/13/19 09:00 07/13/19 08:05 Theragran PO 1 tab DAILY BRENDA Administration Pantoprazole Sodium 40 mg 07/12/19 21:00 07/13/19 08:05 Protonix PO 40 mg BID BRENDA Administration - Exam Heart: negative: RRR, no murmur, no gallops, no rubs, normal peripheral pulses, irregular, diminshed peripheral pulses, murmur present, II/IV, III/IV Respiratory: negative: CTAB, no wheezes, no rales, no ronchi, normal chest expansion, no tachypnea, normal percussion, rales, rhonchi, tachypneic, wheezes Gastrointestinal: negative: soft, non-tender, non-distended, normal bowel sounds , no palpable masses, no hepatomegaly, no splenomegaly, no bruit, no guarding, no rigidity, tender to palpation, distended, diminished bowl sounds, voluntary guarding Extremities: 1+ LE edema Hosp A/P (1) COVID-19 virus detected Code(s): U07.1 - COVID-19 Status: Acute (2) SOB (shortness of breath) Code(s): R06.02 - SHORTNESS OF BREATH Status: Acute (3) COPD (chronic obstructive pulmonary disease) Status: Acute (4) DM2 (diabetes mellitus, type 2) Status: Chronic (5) HTN (hypertension) Code(s): I10 - ESSENTIAL (PRIMARY) HYPERTENSION Status: Chronic (6) Leukopenia Code(s): D72.819 - DECREASED WHITE BLOOD CELL COUNT, UNSPECIFIED Status: Acute - Plan will continue hydroxychloroquine. pt is still on oxy 2-3L, no need for abx for now. she does have a headache and some chest pain. her trops are mildly elevated possible some viral myocarditis. will monitor. echo pending. she did have some loose stools will monitor. she had fever of 101 will monitor, if she has recurrent will get blood cx and cxr. clinically pt states that she feels well. will hold her RA meds for now.
[2019-07-13] MEDS: Atorvastatin Calcium 10 MG TAB PO SCH (20:21)
[2019-07-13] MEDS: oxyCODONE/Acetaminophen 5 mg/325 mg Tablet PO PRN (20:21)
[2019-07-13] MEDS ORDERED: Gabapentin 400 MG CAP PO SCH (21:00)
[2019-07-14] MEDS ORDERED: Acetaminophen 325 MG TAB PO SCH (01:15)
[2019-07-14] MEDS: PROVENTIL INHALER 6.7 G (200 INHALATIONS) INH SCH ×6 (02:29→22:11)
[2019-07-14 05:11] LABS: ALT (SGPT) 9 U/L (8-55); AST (SGOT) 29 U/L (5-34); Albumin 3.1 g/dL (3.4-4.8); Alkaline Phosphatase 61 U/L (40-110); Anion Gap 14 mmol/L (10-20); BUN (Urea Nitrogen) 17 mg/dL (9.8-20.1); Bilirubin, Total 0.4 mg/dL (0.2-1.2); Calc. Creatinine Clearance 50 mL/min (70-130); Calcium 8.8 mg/dL (7.8-10.44); Carbon Dioxide 23 mmol/L (23-31); Chloride 106 mmol/L (98-107); Estimated GFR-MDRD 32; Globulin 3.3 g/dL (2.4-3.5); Glucose 96 mg/dL (80-115); Potassium 4.1 mmol/L (3.5-5.1); Protein, Total 6.4 g/dL (6.0-8.3); Sodium 139 mmol/L (136-145)
[2019-07-14 05:15] LABS: Band 15 % (5-11); Hemoglobin 12.1 g/dL (12.0-16.0); Lymphocytes 32 % (21-51); MDiff Complete? YES; Mean Corpuscular HGB CONC 31.9 g/dL (32.0-36.0); Mean Corpuscular Hemoglobin 29.1 pg (27.0-31.0); Monocytes 8 % (0-10); Neutrophil 45 % (42-75); Platelet Count 103 thou/uL (130-400); Platelet Morphology Comment Appears Decreased; RBC Distribution Width 15.4 % (11.5-14.5); Red Blood Cell (RBC) Count 4.17 mill/uL (4.20-5.40); White Blood Cell (WBC) Count 3.1 thou/uL (4.8-10.8)
[2019-07-14] MEDS: Amlodipine 5 MG TAB PO SCH (08:14)
[2019-07-14] MEDS: Aspirin Chewable 81 MG TAB PO SCH (08:14)
[2019-07-14] MEDS: Folic Acid 1 MG TAB PO SCH (08:14)
[2019-07-14] MEDS: Amitriptyline HCl 25 MG TAB PO SCH ×2 (08:14→20:34)
[2019-07-14] MEDS: Bupropion 150 MG XL TAB PO SCH (08:15)
[2019-07-14] MEDS: Hydroxychloroquine Sulfate 200 MG TAB PO SCH ×2 (08:15→20:27)
[2019-07-14] MEDS: Multivit, Therapeutic 1 TAB PO SCH (08:16)
[2019-07-14] MEDS: Ferrous Sulfate 325 MG TAB PO SCH (08:16)
[2019-07-14] MEDS: Gabapentin 300 MG CAP PO SCH ×3 (08:16→20:28)
[2019-07-14] MEDS: traMADol HCl 50 MG TAB PO PRN (08:16)
[2019-07-14] MEDS: Enoxaparin Sodium 40 MG/0.4 ML SYRINGE SC SCH (08:17)
--- NOTE | 2019-07-14 09:08 | RAD ---
Chest one view HISTORY: Fever. COMPARISON: 07/11/2019. FINDINGS: Cardiac silhouette is magnified and enlarged. Pulmonary vasculature upper limits of normal. Right hemidiaphragm remains elevated compared to the left. Subtle ill-defined parenchymal opacity now projects over the right chest, favored to be within the an terior segment right upper lobe. No evidence of pneumothorax. Right shoulder prosthesis. Degenerative changes left shoulder. junior account manager leads overlie the ches t. IMPRESSION : Developing right upper lobe infiltrate. Cardiomegaly and other findings are otherwise stable.
[2019-07-14] MEDS: cefTRIAXone\\ROCEPHIN 1 GM in Sodium Chloride 0.9% 100 ML IVPB SCH (09:29)
[2019-07-14] MEDS: Azithromycin 500 MG in Sodium Chloride 0.9% 250 ML 250 ML IVPB SCH (11:41)
[2019-07-14] MEDS: oxyCODONE/Acetaminophen 5 mg/325 mg Tablet PO PRN ×2 (13:07→22:11)
[2019-07-14] MEDS ORDERED: Sodium Chloride 0.9% 1,000 ML IV SCH (16:15)
[2019-07-14] MEDS: Acetaminophen 325 MG TAB PO PRN (16:50)
--- NOTE | 2019-07-14 18:09 | PDOC.HOSPP ---
- Subjective Encounter Date: 07/14/19 Encounter Time: 16:45 Subjective: pt feels well, she denies any sob/cp/n/v or diarrhea. - Objective Vital Signs & Weight: Vital Signs (12 hours) Temp Pulse Resp BP Pulse Ox 07/14/19 17:57 100.5 F H 91 L 07/14/19 14:46 101.0 F H 112 H 22 H 136/71 89 L 07/14/19 11:38 100.9 F H 104 H 20 129/88 90 L 07/14/19 08:14 104 H 07/14/19 08:09 100.9 F H 104 H 22 H 133/63 92 L 07/14/19 06:15 100.0 F H Weight Weight 210 lb 8.663 oz I&O: 07/13/19 07/14/19 07/15/19 06:59 06:59 06:59 Intake Total 1460 Output Total 500 Balance 960 Result Diagrams: 07/14/19 04:41 07/14/19 04:41 Hospitalist ROS - Review of Systems Cardiovascular: denies: chest pain, palpitations, orthopnea, paroxysmal noc. dyspnea, edema, light headedness, other Gastrointestinal: denies: nausea, vomiting, abdominal pain, diarrhea, constipation, melena, hematochezia, other Genitourinary: denies: dysuria, frequency, incontinence, hematuria, retention, other - Medication Medications: Active Medications Generic Name Dose Route Start Last Admin Trade Name Freq PRN Reason Stop Dose Admin Acetaminophen 650 mg 07/11/19 16:46 07/14/19 16:50 Tylenol PO 650 mg Q4H PRN Administration Headache/Fever/Mild Pain (1-3) Albuterol Sulfate 1 puff 07/12/19 10:30 07/14/19 14:54 Proventil Hfa INH 1 puff [id number] BRENDA Administration Amitriptyline HCl 25 mg 07/12/19 09:00 07/14/19 08:14 Elavil PO Not Given DAILY BRENDA Amlodipine Besylate 5 mg 07/14/19 09:00 07/14/19 08:14 Norvasc PO 5 mg DAILY BRENDA Administration Aspirin 81 mg 07/12/19 09:00 07/14/19 08:14 Aspirin Chewable PO 81 mg DAILY BRENDA Administration Atorvastatin Calcium 10 mg 07/11/19 21:00 07/13/19 20:21 Lipitor PO 10 mg QPM BRENDA Administration Bupropion HCl 300 mg 07/12/19 09:00 07/14/19 08:15 Wellbutrin Xl PO 300 mg DAILY BRENDA Administration Clonidine 0.1 mg 07/12/19 21:31 07/12/19 22:06 Catapres PO 0.1 mg Q4H PRN Administration SBP Greater Than 180 Enoxaparin Sodium 40 mg 07/13/19 09:00 07/14/19 08:17 Lovenox SC 40 mg 0900 BRENDA Administration Ferrous Sulfate 325 mg 07/12/19 09:00 07/14/19 08:16 Feosol PO 325 mg DAILY BRENDA Administration Folic Acid 1 mg 07/13/19 09:00 07/14/19 08:14 Folvite PO 1 mg DAILY BRENDA Administration Gabapentin 300 mg 07/13/19 15:00 07/14/19 14:54 Neurontin PO 300 mg TID BRENDA Administration Hydroxychloroquine Sulfate 200 mg 07/12/19 21:00 07/14/19 08:15 Plaquenil PO 200 mg BID BRENDA Administration Azithromycin 500 mg/ Sodium 250 mls @ 250 mls/hr 07/14/19 09:00 07/14/19 11: 41 Chloride IVPB 250 mls Q24HR BRENDA Administration Ceftriaxone Sodium 1 gm/ 100 mls @ 200 mls/hr 07/14/19 08:30 07/14/19 09:29 Sodium Chloride IVPB 100 mls Q24HR BRENDA Administration Multivitamins 1 tab 07/13/19 09:00 07/14/19 08:16 Theragran PO 1 tab DAILY BRENDA Administration Oxycodone/Acetaminophen 1 tab 07/13/19 16:42 07/14/19 13:07 Percocet 5/325 PO 1 tab Q4H PRN Administration Pain Pantoprazole Sodium 40 mg 07/12/19 21:00 07/14/19 08:16 Protonix PO 40 mg BID BRENDA Administration Tramadol HCl 50 mg 07/13/19 10:04 07/14/19 08:16 Ultram PO 50 mg Q6H PRN Administration Mild-Moderate Pain (1-5) - Exam Neck: negative: supple, symmetric, no JVD, no thyromegaly, no lymphadenopathy, no carotid bruit, JVD Heart: negative: RRR, no murmur, no gallops, no rubs, normal peripheral pulses, irregular, diminshed peripheral pulses, murmur present, II/IV, III/IV Respiratory - other findings: decrease breath sounds to bases Gastrointestinal: negative: soft, non-tender, non-distended, normal bowel sounds , no palpable masses, no hepatomegaly, no splenomegaly, no bruit, no guarding, no rigidity, tender to palpation, distended, diminished bowl sounds, voluntary guarding Hosp A/P (1) COVID-19 virus detected Code(s): U07.1 - COVID-19 Status: Acute (2) SOB (shortness of breath) Code(s): R06.02 - SHORTNESS OF BREATH Status: Acute (3) COPD (chronic obstructive pulmonary disease) Status: Acute (4) DM2 (diabetes mellitus, type 2) Status: Chronic (5) HTN (hypertension) Code(s): I10 - ESSENTIAL (PRIMARY) HYPERTENSION Status: Chronic (6) Leukopenia Code(s): D72.819 - DECREASED WHITE BLOOD CELL COUNT, UNSPECIFIED Status: Acute - Plan will continue hydroxychloroquine. pt is still on oxy 2-3L, no need for abx for now. she does have a headache and some chest pain. her trops are mildly elevated possible some viral myocarditis. will monitor. echo pending. she did have some loose stools will monitor. she had fever of 101 will monitor, if she has recurrent will get blood cx and cxr. clinically pt states that she feels well. will hold her RA meds for now. 07/12 pt states she feels well overall and wants to go home. I educated her that is she is afebrile and continues to feel well possible discharge. will monitor. she has no more loose stools. I have encouraged her to drink more water. she has no more chest pain. 07/13 cxr indicated infiltrate to rul. will start her on abx. she clinically feels well but has been spiking fever. will give her Ns lL. will give her IS. she is still at a high risk of decompensation. Her symptoms started 07/04.
[2019-07-14] MEDS: Atorvastatin Calcium 10 MG TAB PO SCH (20:27)
[2019-07-15] MEDS: Acetaminophen 325 MG TAB PO PRN ×3 (00:24→15:54)
[2019-07-15 04:53] LABS: #Lymphocytes 1.2 thou/uL (1.20-3.40); #Monocytes 0.2 thou/uL (0.11-0.59); #Neutrophils 2.7 thou/uL (1.40-6.50); %Basophils 0.4 % (0.0-1.0); %Eosinophils 0.5 % (0.0-10.0); %Lymphocytes 28.8 % (21.0-51.0); %Monocytes 5.6 % (0.0-10.0); %Neutrophils 64.8 % (42.0-75.0); Hemoglobin 12.5 g/dL (12.0-16.0); Mean Corpuscular HGB CONC 31.1 g/dL (32.0-36.0); Mean Corpuscular Hemoglobin 28.7 pg (27.0-31.0); Mean Corpuscular Volume 92.2 fL (78.0-98.0); Mean Platelet Volume 10.1 fL (7.4-10.4); Platelet Count 150 thou/uL (130-400); RBC Distribution Width 15.8 % (11.5-14.5); Red Blood Cell (RBC) Count 4.34 mill/uL (4.20-5.40); White Blood Cell (WBC) Count 4.1 thou/uL (4.8-10.8)
[2019-07-15] MEDS: PROVENTIL INHALER 6.7 G (200 INHALATIONS) INH SCH ×6 (05:10→21:02)
[2019-07-15 05:15] LABS: ALT (SGPT) 12 U/L (8-55); AST (SGOT) 38 U/L (5-34); Albumin 3.4 g/dL (3.4-4.8); Alkaline Phosphatase 63 U/L (40-110); Anion Gap 15 mmol/L (10-20); BUN (Urea Nitrogen) 18 mg/dL (9.8-20.1); Bilirubin, Total 0.3 mg/dL (0.2-1.2); Calc. Creatinine Clearance 48 mL/min (70-130); Calcium 8.9 mg/dL (7.8-10.44); Carbon Dioxide 23 mmol/L (23-31); Chloride 105 mmol/L (98-107); Estimated GFR-MDRD 30; Globulin 3.5 g/dL (2.4-3.5); Glucose 105 mg/dL (80-115); Magnesium 1.7 mg/dL (1.6-2.6); Potassium 4.1 mmol/L (3.5-5.1); Protein, Total 6.9 g/dL (6.0-8.3); Sodium 139 mmol/L (136-145)
[2019-07-15] MEDS: cefTRIAXone\\ROCEPHIN 1 GM in Sodium Chloride 0.9% 100 ML IVPB SCH (08:59)
[2019-07-15] MEDS: Amitriptyline HCl 25 MG TAB PO SCH (09:05)
[2019-07-15] MEDS: Bupropion 150 MG XL TAB PO SCH (09:05)
[2019-07-15] MEDS: Amlodipine 5 MG TAB PO SCH (09:05)
[2019-07-15] MEDS: Enoxaparin Sodium 40 MG/0.4 ML SYRINGE SC SCH (09:06)
[2019-07-15] MEDS: Folic Acid 1 MG TAB PO SCH (09:06)
[2019-07-15] MEDS: Multivit, Therapeutic 1 TAB PO SCH (09:06)
[2019-07-15] MEDS: Gabapentin 300 MG CAP PO SCH ×3 (09:06→21:02)
[2019-07-15] MEDS: Hydroxychloroquine Sulfate 200 MG TAB PO SCH ×2 (09:06→21:02)
[2019-07-15] MEDS: Ferrous Sulfate 325 MG TAB PO SCH (09:06)
[2019-07-15] MEDS: Aspirin Chewable 81 MG TAB PO SCH (09:07)
[2019-07-15] MEDS: Azithromycin 500 MG in Sodium Chloride 0.9% 250 ML 250 ML IVPB SCH (10:12)
[2019-07-15] MEDS: oxyCODONE/Acetaminophen 5 mg/325 mg Tablet PO PRN (21:01)
[2019-07-15] MEDS: Atorvastatin Calcium 10 MG TAB PO SCH (21:02)
[2019-07-16] MEDS: PROVENTIL INHALER 6.7 G (200 INHALATIONS) INH SCH ×5 (03:28→18:36)
[2019-07-16] MEDS: cefTRIAXone\\ROCEPHIN 1 GM in Sodium Chloride 0.9% 100 ML IVPB SCH (08:54)
[2019-07-16] MEDS: Enoxaparin Sodium 40 MG/0.4 ML SYRINGE SC SCH (08:55)
[2019-07-16] MEDS: oxyCODONE/Acetaminophen 5 mg/325 mg Tablet PO PRN ×2 (08:55→20:43)
[2019-07-16] MEDS: Aspirin Chewable 81 MG TAB PO SCH (08:56)
[2019-07-16] MEDS: Gabapentin 300 MG CAP PO SCH ×3 (08:56→20:15)
[2019-07-16] MEDS: Ferrous Sulfate 325 MG TAB PO SCH (08:56)
[2019-07-16] MEDS: Folic Acid 1 MG TAB PO SCH (08:56)
[2019-07-16] MEDS: Bupropion 150 MG XL TAB PO SCH (08:56)
[2019-07-16] MEDS: Amlodipine 5 MG TAB PO SCH (08:57)
[2019-07-16] MEDS: Hydroxychloroquine Sulfate 200 MG TAB PO SCH ×2 (08:57→20:16)
[2019-07-16] MEDS: Multivit, Therapeutic 1 TAB PO SCH (08:57)
[2019-07-16] MEDS: Azithromycin 500 MG in Sodium Chloride 0.9% 250 ML 250 ML IVPB SCH (10:08)
[2019-07-16 14:55] LABS: #Lymphocytes 0.9 thou/uL (1.20-3.40); #Monocytes 0.3 thou/uL (0.11-0.59); #Neutrophils 4.3 thou/uL (1.40-6.50); %Basophils 0.3 % (0.0-1.0); %Eosinophils 0.1 % (0.0-10.0); %Lymphocytes 16.1 % (21.0-51.0); %Monocytes 4.7 % (0.0-10.0); %Neutrophils 78.7 % (42.0-75.0); Hemoglobin 11.8 g/dL (12.0-16.0); Mean Corpuscular HGB CONC 32.2 g/dL (32.0-36.0); Mean Corpuscular Hemoglobin 29.2 pg (27.0-31.0); Mean Corpuscular Volume 90.7 fL (78.0-98.0); Mean Platelet Volume 9.5 fL (7.4-10.4); Platelet Count 181 thou/uL (130-400); RBC Distribution Width 15.5 % (11.5-14.5); Red Blood Cell (RBC) Count 4.06 mill/uL (4.20-5.40); White Blood Cell (WBC) Count 5.5 thou/uL (4.8-10.8)
[2019-07-16 15:23] LABS: ALT (SGPT) 17 U/L (8-55); AST (SGOT) 47 U/L (5-34); Albumin 3.4 g/dL (3.4-4.8); Alkaline Phosphatase 66 U/L (40-110); Anion Gap 15 mmol/L (10-20); BUN (Urea Nitrogen) 20 mg/dL (9.8-20.1); Bilirubin, Total 0.4 mg/dL (0.2-1.2); Calc. Creatinine Clearance 48 mL/min (70-130); Calcium 8.9 mg/dL (7.8-10.44); Carbon Dioxide 24 mmol/L (23-31); Chloride 104 mmol/L (98-107); Estimated GFR-MDRD 31; Globulin 3.5 g/dL (2.4-3.5); Glucose 171 mg/dL (80-115); Potassium 3.8 mmol/L (3.5-5.1); Protein, Total 6.9 g/dL (6.0-8.3); Sodium 139 mmol/L (136-145)
[2019-07-16] MEDS ORDERED: Labetalol HCl 100 MG/20 ML VIAL SLOW IVP SCH (19:15)
[2019-07-16] MEDS ORDERED: Metoprolol Tartrate 5 MG/5 ML VIAL IVP SCH ×2 (19:15→20:30)
[2019-07-16] MEDS ORDERED: Sodium Chloride 0.9% 500 ML IV SCH (19:30)
--- NOTE | 2019-07-16 20:08 | PDOC.EVN ---
Event Note - Event Note Event Note: Contacted by RN, patient with tachycardia and bolus ordered earlier. Concern for BP in 200s. Repeat BP is in 160s range systolic. Patient febrile since 18:30, unclear if treated. Temp taken now is 101.4 Advised to treat fever if not done already, and then recheck HR. Likely tachy due to fever. If Tylenol already given then will give Ibuprofen. Patient on antibiotics. ADDENDUM: Notified by Dr. Hamilton, patient has been discussed with Dr. Chowdhury, who felt patient was in a. flutter (2:1). Receiving treatment with Metoprolol IV as per Dr. Chowdhury's recommendations (on- call machine ii coremaker). Continue to monitor.
[2019-07-16] MEDS: Atorvastatin Calcium 10 MG TAB PO SCH (20:15)
[2019-07-16 20:32] LABS: CKMB 4.6 ng/mL (0-6.6)
[2019-07-16] MEDS: Acetaminophen 325 MG TAB PO PRN (20:43)
[2019-07-17] MEDS: PROVENTIL INHALER 6.7 G (200 INHALATIONS) INH PRN ×2 (04:51→09:53)
[2019-07-17 05:07] LABS: ALT (SGPT) 18 U/L (8-55); AST (SGOT) 41 U/L (5-34); Alkaline Phosphatase 60 U/L (40-110); Anion Gap 13 mmol/L (10-20); BUN (Urea Nitrogen) 21 mg/dL (9.8-20.1); Bilirubin, Total 0.5 mg/dL (0.2-1.2); Calc. Creatinine Clearance 47 mL/min (70-130); Calcium 8.7 mg/dL (7.8-10.44); Carbon Dioxide 23 mmol/L (23-31); Chloride 107 mmol/L (98-107); Estimated GFR-MDRD 30; Globulin 3.3 g/dL (2.4-3.5); Glucose 134 mg/dL (80-115); Potassium 3.9 mmol/L (3.5-5.1); Protein, Total 6.3 g/dL (6.0-8.3); Sodium 139 mmol/L (136-145)
[2019-07-17 05:08] LABS: #Lymphocytes 1.1 thou/uL (1.20-3.40); #Monocytes 0.4 thou/uL (0.11-0.59); %Basophils 0.7 % (0.0-1.0); %Eosinophils 0.6 % (0.0-10.0); %Lymphocytes 19.6 % (21.0-51.0); %Monocytes 7.1 % (0.0-10.0); Hemoglobin 11.4 g/dL (12.0-16.0); Mean Corpuscular HGB CONC 33.8 g/dL (32.0-36.0); Mean Corpuscular Hemoglobin 30.7 pg (27.0-31.0); Mean Platelet Volume 9.1 fL (7.4-10.4); Platelet Count 176 thou/uL (130-400); RBC Distribution Width 15.6 % (11.5-14.5); Red Blood Cell (RBC) Count 3.72 mill/uL (4.20-5.40); White Blood Cell (WBC) Count 5.6 thou/uL (4.8-10.8)
[2019-07-17 05:30] LABS: CKMB 3.9 ng/mL (0-6.6)
--- NOTE | 2019-07-17 06:37 | PDOC.HOSPP ---
- Subjective Encounter Date: 07/15/19 Encounter Time: 16:45 Subjective: pt up in bed states she feels well and wants to go home. - Objective Vital Signs & Weight: Vital Signs (12 hours) Temp Pulse Resp BP Pulse Ox 07/17/19 04:51 88 24 H 88 L 07/17/19 04:00 97.4 F L 88 22 H 139/80 88 L 07/17/19 00:26 91 L 07/16/19 21:33 155/80 H 91 L 07/16/19 20:25 91 L 07/16/19 20:00 101.2 F H 118 H 24 H 166/80 H 87 L Weight Weight 210 lb 8.663 oz I&O: 07/15/19 07/16/19 07/17/19 06:59 06:59 06:59 Intake Total 480 Balance 480 Result Diagrams: 07/17/19 04:38 07/17/19 04:38 Hospitalist ROS - Review of Systems Cardiovascular: denies: chest pain, palpitations, orthopnea, paroxysmal noc. dyspnea, edema, light headedness, other Gastrointestinal: denies: nausea, vomiting, abdominal pain, diarrhea, constipation, melena, hematochezia, other Genitourinary: denies: dysuria, frequency, incontinence, hematuria, retention, other - Medication Medications: Active Medications Generic Name Dose Route Start Last Admin Trade Name Freq PRN Reason Stop Dose Admin Acetaminophen 650 mg 07/11/19 16:46 07/16/19 20:43 Tylenol PO 650 mg Q4H PRN Administration Headache/Fever/Mild Pain (1-3) Albuterol Sulfate 1 puff 07/16/19 19:07 07/17/19 04:51 Proventil Hfa INH 1 puff Q4H PRN Administration SOB &/or Wheezing Amitriptyline HCl 25 mg 07/12/19 09:00 07/15/19 09:05 Elavil PO Not Given DAILY BRENDA Amlodipine Besylate 5 mg 07/14/19 09:00 07/16/19 08:57 Norvasc PO 5 mg DAILY BRENDA Administration Aspirin 81 mg 07/12/19 09:00 07/16/19 08:56 Aspirin Chewable PO 81 mg DAILY BRENDA Administration Atorvastatin Calcium 10 mg 07/11/19 21:00 07/16/19 20:15 Lipitor PO 10 mg QPM BRENDA Administration Bupropion HCl 300 mg 07/12/19 09:00 07/16/19 08:56 Wellbutrin Xl PO 300 mg DAILY BRENDA Administration Clonidine 0.1 mg 07/12/19 21:31 07/12/19 22:06 Catapres PO 0.1 mg Q4H PRN Administration SBP Greater Than 180 Enoxaparin Sodium 40 mg 07/13/19 09:00 07/16/19 08:55 Lovenox SC 40 mg 0900 BRENDA Administration Ferrous Sulfate 325 mg 07/12/19 09:00 07/16/19 08:56 Feosol PO 325 mg DAILY BRENDA Administration Folic Acid 1 mg 07/13/19 09:00 07/16/19 08:56 Folvite PO 1 mg DAILY BRENDA Administration Gabapentin 300 mg 07/13/19 15:00 07/16/19 20:15 Neurontin PO 300 mg TID BRENDA Administration Hydroxychloroquine Sulfate 200 mg 07/12/19 21:00 07/16/19 20:16 Plaquenil PO 200 mg BID BRENDA Administration Azithromycin 500 mg/ Sodium 250 mls @ 250 mls/hr 07/14/19 09:00 07/16/19 10: 08 Chloride IVPB 250 mls Q24HR BRENDA Administration Ceftriaxone Sodium 1 gm/ 100 mls @ 200 mls/hr 07/14/19 08:30 07/16/19 08:54 Sodium Chloride IVPB 100 mls Q24HR BRENDA Administration Multivitamins 1 tab 07/13/19 09:00 07/16/19 08:57 Theragran PO 1 tab DAILY BRENDA Administration Oxycodone/Acetaminophen 1 tab 07/13/19 16:42 07/16/19 20:43 Percocet 5/325 PO 1 tab Q4H PRN Administration Pain Pantoprazole Sodium 40 mg 07/12/19 21:00 07/16/19 20:16 Protonix PO 40 mg BID BRENDA Administration Sodium Chloride 10 ml 07/16/19 21:00 07/16/19 20:16 Flush - Normal Saline IVF 10 ml Q12HR BRENDA Administration Tramadol HCl 50 mg 07/13/19 10:04 07/14/19 08:16 Ultram PO 50 mg Q6H PRN Administration Mild-Moderate Pain (1-5) - Exam Heart: negative: RRR, no murmur, no gallops, no rubs, normal peripheral pulses, irregular, diminshed peripheral pulses, murmur present, II/IV, III/IV Respiratory - other findings: diminshed to bases Gastrointestinal: negative: soft, non-tender, non-distended, normal bowel sounds , no palpable masses, no hepatomegaly, no splenomegaly, no bruit, no guarding, no rigidity, tender to palpation, distended, diminished bowl sounds, voluntary guarding Extremities: 1+ LE edema Hosp A/P (1) COVID-19 virus detected Code(s): U07.1 - COVID-19 Status: Acute (2) SOB (shortness of breath) Code(s): R06.02 - SHORTNESS OF BREATH Status: Acute (3) COPD (chronic obstructive pulmonary disease) Status: Acute (4) DM2 (diabetes mellitus, type 2) Status: Chronic (5) HTN (hypertension) Code(s): I10 - ESSENTIAL (PRIMARY) HYPERTENSION Status: Chronic (6) Leukopenia Code(s): D72.819 - DECREASED WHITE BLOOD CELL COUNT, UNSPECIFIED Status: Acute - Plan will continue hydroxychloroquine. pt is still on oxy 2-3L, no need for abx for now. she does have a headache and some chest pain. her trops are mildly elevated possible some viral myocarditis. will monitor. echo pending. she did have some loose stools will monitor. she had fever of 101 will monitor, if she has recurrent will get blood cx and cxr. clinically pt states that she feels well. will hold her RA meds for now. 07/12 pt states she feels well overall and wants to go home. I educated her that is she is afebrile and continues to feel well possible discharge. will monitor. she has no more loose stools. I have encouraged her to drink more water. she has no more chest pain. 07/13 cxr indicated infiltrate to rul. will start her on abx. she clinically feels well but has been spiking fever. will give her Ns lL. will give her IS. she is still at a high risk of decompensation. Her symptoms started 07/04. 07/14 pt still is spiking a fever. she is using her IS. I am hesitant to send her home. will watch her for 24-48h until she is afebrile. continue abx/ hydroxychloroquine.
--- NOTE | 2019-07-17 06:42 | PDOC.HOSPP ---
- Subjective Encounter Date: 07/16/19 Encounter Time: 17:00 Subjective: pt states she feel well and wants to go home. - Objective Vital Signs & Weight: Vital Signs (12 hours) Temp Pulse Resp BP Pulse Ox 07/17/19 04:51 88 24 H 88 L 07/17/19 04:00 97.4 F L 88 22 H 139/80 88 L 07/17/19 00:26 91 L 07/16/19 21:33 155/80 H 91 L 07/16/19 20:25 91 L 07/16/19 20:00 101.2 F H 118 H 24 H 166/80 H 87 L Weight Weight 210 lb 8.663 oz I&O: 07/15/19 07/16/19 07/17/19 06:59 06:59 06:59 Intake Total 480 Balance 480 Result Diagrams: 07/17/19 04:38 07/17/19 04:38 Hospitalist ROS - Review of Systems Cardiovascular: denies: chest pain, palpitations, orthopnea, paroxysmal noc. dyspnea, edema, light headedness, other Gastrointestinal: denies: nausea, vomiting, abdominal pain, diarrhea, constipation, melena, hematochezia, other Genitourinary: denies: dysuria, frequency, incontinence, hematuria, retention, other - Medication Medications: Active Medications Generic Name Dose Route Start Last Admin Trade Name Freq PRN Reason Stop Dose Admin Acetaminophen 650 mg 07/11/19 16:46 07/16/19 20:43 Tylenol PO 650 mg Q4H PRN Administration Headache/Fever/Mild Pain (1-3) Albuterol Sulfate 1 puff 07/16/19 19:07 07/17/19 04:51 Proventil Hfa INH 1 puff Q4H PRN Administration SOB &/or Wheezing Amitriptyline HCl 25 mg 07/12/19 09:00 07/15/19 09:05 Elavil PO Not Given DAILY BRENDA Amlodipine Besylate 5 mg 07/14/19 09:00 07/16/19 08:57 Norvasc PO 5 mg DAILY BRENDA Administration Aspirin 81 mg 07/12/19 09:00 07/16/19 08:56 Aspirin Chewable PO 81 mg DAILY BRENDA Administration Atorvastatin Calcium 10 mg 07/11/19 21:00 07/16/19 20:15 Lipitor PO 10 mg QPM BRENDA Administration Bupropion HCl 300 mg 07/12/19 09:00 07/16/19 08:56 Wellbutrin Xl PO 300 mg DAILY BRENDA Administration Clonidine 0.1 mg 07/12/19 21:31 07/12/19 22:06 Catapres PO 0.1 mg Q4H PRN Administration SBP Greater Than 180 Enoxaparin Sodium 40 mg 07/13/19 09:00 07/16/19 08:55 Lovenox SC 40 mg 0900 BRENDA Administration Ferrous Sulfate 325 mg 07/12/19 09:00 07/16/19 08:56 Feosol PO 325 mg DAILY BRENDA Administration Folic Acid 1 mg 07/13/19 09:00 07/16/19 08:56 Folvite PO 1 mg DAILY BRENDA Administration Gabapentin 300 mg 07/13/19 15:00 07/16/19 20:15 Neurontin PO 300 mg TID BRENDA Administration Hydroxychloroquine Sulfate 200 mg 07/12/19 21:00 07/16/19 20:16 Plaquenil PO 200 mg BID BRENDA Administration Azithromycin 500 mg/ Sodium 250 mls @ 250 mls/hr 07/14/19 09:00 07/16/19 10: 08 Chloride IVPB 250 mls Q24HR BRENDA Administration Ceftriaxone Sodium 1 gm/ 100 mls @ 200 mls/hr 07/14/19 08:30 07/16/19 08:54 Sodium Chloride IVPB 100 mls Q24HR BRENDA Administration Multivitamins 1 tab 07/13/19 09:00 07/16/19 08:57 Theragran PO 1 tab DAILY BRENDA Administration Oxycodone/Acetaminophen 1 tab 07/13/19 16:42 07/16/19 20:43 Percocet 5/325 PO 1 tab Q4H PRN Administration Pain Pantoprazole Sodium 40 mg 07/12/19 21:00 07/16/19 20:16 Protonix PO 40 mg BID BRENDA Administration Sodium Chloride 10 ml 07/16/19 21:00 07/16/19 20:16 Flush - Normal Saline IVF 10 ml Q12HR BRENDA Administration Tramadol HCl 50 mg 07/13/19 10:04 07/14/19 08:16 Ultram PO 50 mg Q6H PRN Administration Mild-Moderate Pain (1-5) - Exam Heart: negative: RRR, no murmur, no gallops, no rubs, normal peripheral pulses, irregular, diminshed peripheral pulses, murmur present, II/IV, III/IV Respiratory - other findings: mild crackles to bases Gastrointestinal: negative: soft, non-tender, non-distended, normal bowel sounds , no palpable masses, no hepatomegaly, no splenomegaly, no bruit, no guarding, no rigidity, tender to palpation, distended, diminished bowl sounds, voluntary guarding Extremities: 1+ LE edema Hosp A/P (1) COVID-19 virus detected Code(s): U07.1 - COVID-19 Status: Acute (2) SOB (shortness of breath) Code(s): R06.02 - SHORTNESS OF BREATH Status: Acute (3) COPD (chronic obstructive pulmonary disease) Status: Acute (4) DM2 (diabetes mellitus, type 2) Status: Chronic (5) HTN (hypertension) Code(s): I10 - ESSENTIAL (PRIMARY) HYPERTENSION Status: Chronic (6) Leukopenia Code(s): D72.819 - DECREASED WHITE BLOOD CELL COUNT, UNSPECIFIED Status: Acute (7) Atrial flutter Code(s): I48.92 - UNSPECIFIED ATRIAL FLUTTER Status: Acute - Plan will continue hydroxychloroquine. pt is still on oxy 2-3L, no need for abx for now. she does have a headache and some chest pain. her trops are mildly elevated possible some viral myocarditis. will monitor. echo pending. she did have some loose stools will monitor. she had fever of 101 will monitor, if she has recurrent will get blood cx and cxr. clinically pt states that she feels well. will hold her RA meds for now. 07/12 pt states she feels well overall and wants to go home. I educated her that is she is afebrile and continues to feel well possible discharge. will monitor. she has no more loose stools. I have encouraged her to drink more water. she has no more chest pain. 07/13 cxr indicated infiltrate to rul. will start her on abx. she clinically feels well but has been spiking fever. will give her Ns lL. will give her IS. she is still at a high risk of decompensation. Her symptoms started 07/04. 07/14 pt still is spiking a fever. she is using her IS. I am hesitant to send her home. will watch her for 24-48h until she is afebrile. continue abx/ hydroxychloroquine. 07/15 pt wanted to go home, i recommended her to stay but she wanted to go home. Approximately 10 min after i left her room she became tachycardia hr in 130-140 , appeared to be in flutter. ekg was ordered. will check trops. She was given some metoprolol. she also spiked a fever. will check other labs. will repeat cxr in am. Her oxygen requirement is also worsening. she is at baseline 2-3l. will consult cardio and may need pulm. will hold off on her albuterol inhaler.
[2019-07-17] MEDS ORDERED: Furosemide 20 MG/2 ML VIAL SLOW IVP SCH (06:45)
[2019-07-17] MEDS ORDERED: Metoprolol Tartrate 25 MG TAB PO SCH (09:00)
[2019-07-17] MEDS: cefTRIAXone\\ROCEPHIN 1 GM in Sodium Chloride 0.9% 100 ML IVPB SCH (09:31)
--- NOTE | 2019-07-17 09:34 | RAD ---
CHEST 1 VIEW: Date: 07/17/2019 HISTORY: Shortness of breath. FINDINGS: There are some patchy linear and interstitial parenchymal changes which are worsening in the right shahana ng, as well as small patch of parenchymal density in the left mid lung zone. Blunting of the left cos tophrenic angle, possibly some developing effusion. Stable cardiomegaly. IMPRESSION: Progressing linear and interstitial infiltrative changes bilaterally. Evidence for left pleural effus ion. Stable cardiomegaly. Continue short-term follow-up. POS: RRE
[2019-07-17] MEDS: Bupropion 150 MG XL TAB PO SCH (09:39)
[2019-07-17] MEDS: Enoxaparin Sodium 40 MG/0.4 ML SYRINGE SC SCH (09:39)
[2019-07-17] MEDS: Ferrous Sulfate 325 MG TAB PO SCH (09:40)
[2019-07-17] MEDS: Multivit, Therapeutic 1 TAB PO SCH (09:40)
[2019-07-17] MEDS: Aspirin Chewable 81 MG TAB PO SCH (09:40)
[2019-07-17] MEDS: Folic Acid 1 MG TAB PO SCH (09:40)
[2019-07-17] MEDS: Gabapentin 300 MG CAP PO SCH ×3 (09:41→21:06)
[2019-07-17] MEDS: Hydroxychloroquine Sulfate 200 MG TAB PO SCH ×2 (09:41→21:06)
[2019-07-17] MEDS: oxyCODONE/Acetaminophen 5 mg/325 mg Tablet PO PRN (09:41)
[2019-07-17] MEDS: ALPRAZolam 0.25 MG TAB PO PRN ×2 (09:42→21:20)
[2019-07-17] MEDS: Azithromycin 500 MG in Sodium Chloride 0.9% 250 ML 250 ML IVPB SCH (09:57)
--- NOTE | 2019-07-17 10:26 | CON ---
DATE OF CONSULTATION: HISTORY OF PRESENT ILLNESS: This patient is a 68-year-old woman, with no apparent cardiac history, who was admitted with fevers, chills, and rapid heart rate. The patient was admitted with fevers, chills, and has been diagnosed with COVID. She has been on oxygen therapy. The patient last evening developed a rapid heart rate. She was given IV metoprolol. PAST MEDICAL HISTORY: 1. Hypertension. 2. COPD. 3. Arthritis. PAST SURGICAL HISTORY: Bariatric surgery, cholecystectomy, , knee surgery. SOCIAL HISTORY: Former smoker. MEDICATIONS: See nursing list. REVIEW OF SYSTEMS: Not obtained. PHYSICAL EXAMINATION: VITAL SIGNS: Her blood pressure is 152/76. Heart rate is 108. Physical examination was not performed. LABORATORY RESULTS: Sodium 139, potassium 4.1, chloride 106, bicarbonate 23, BUN 17, creatinine 1.6. Troponin 0.054. White blood cell count 5.6, hemoglobin 11.4, hematocrit 33.8, platelets 176. IMAGING STUDIES: EKG normal sinus rhythm, right bundle-branch block with Q-waves. She has a possible previous anteroseptal infarct. Chest x-ray revealed progressive infiltrative lung disease. Telemetry monitoring rapid tachycardia, most likely sinus tachycardia. IMPRESSION: 1. Coronavirus disease pneumonitis. 2. History of chronic obstructive pulmonary disease. 3. Tachycardia. This patient is being treated for COVID pneumonitis. From a cardiac standpoint , she underwent an echocardiogram a few days ago, which revealed mild decrease in left ventricular systolic function. At this time, it appears that she was in sinus tachycardia, though atrial flutter cannot be excluded. I would favor placing the patient on Cardizem, instead of a beta-cami. I will monitor this patient with you through the hospitalization. Job ID: [id number] [facility]
[2019-07-17] MEDS ORDERED: Furosemide 40 MG/4 ML VIAL SLOW IVP SCH (13:00)
[2019-07-17] MEDS: traMADol HCl 50 MG TAB PO PRN (15:43)
[2019-07-17] MEDS: Atorvastatin Calcium 10 MG TAB PO SCH (21:06)
[2019-07-17] MEDS: Acetaminophen 325 MG TAB PO PRN (21:19)
[2019-07-18] MEDS: Azithromycin 500 MG in Sodium Chloride 0.9% 250 ML 250 ML IVPB SCH (08:03)
[2019-07-18 08:43] LABS: #Eosinphils 0.1 thou/uL (0.0-0.7); #Lymphocytes 0.9 thou/uL (1.20-3.40); #Monocytes 0.4 thou/uL (0.11-0.59); #Neutrophils 3.2 thou/uL (1.40-6.50); %Eosinophils 1.2 % (0.0-10.0); %Lymphocytes 19.4 % (21.0-51.0); %Monocytes 9.7 % (0.0-10.0); %Neutrophils 68.8 % (42.0-75.0); Hemoglobin 10.2 g/dL (12.0-16.0); Mean Corpuscular HGB CONC 30.6 g/dL (32.0-36.0); Mean Corpuscular Volume 91.5 fL (78.0-98.0); Mean Platelet Volume 8.7 fL (7.4-10.4); Platelet Count 227 thou/uL (130-400); RBC Distribution Width 15.8 % (11.5-14.5); Red Blood Cell (RBC) Count 3.65 mill/uL (4.20-5.40); White Blood Cell (WBC) Count 4.6 thou/uL (4.8-10.8)
[2019-07-18 09:02] LABS: ALT (SGPT) 19 U/L (8-55); AST (SGOT) 39 U/L (5-34); Albumin 2.9 g/dL (3.4-4.8); Alkaline Phosphatase 58 U/L (40-110); Anion Gap 13 mmol/L (10-20); BUN (Urea Nitrogen) 23 mg/dL (9.8-20.1); Bilirubin, Total 0.4 mg/dL (0.2-1.2); CRP (Inflammatory) 15.86 mg/dL (= or < 0.5); Calc. Creatinine Clearance 45 mL/min (70-130); Calcium 8.7 mg/dL (7.8-10.44); Carbon Dioxide 27 mmol/L (23-31); Chloride 107 mmol/L (98-107); Estimated GFR-MDRD 28; Globulin 3.4 g/dL (2.4-3.5); Glucose 148 mg/dL (80-115); Potassium 3.8 mmol/L (3.5-5.1); Protein, Total 6.3 g/dL (6.0-8.3); Sodium 143 mmol/L (136-145)
[2019-07-18] MEDS: cefTRIAXone\\ROCEPHIN 1 GM in Sodium Chloride 0.9% 100 ML IVPB SCH (09:21)
[2019-07-18] MEDS: Bupropion 150 MG XL TAB PO SCH (09:21)
[2019-07-18] MEDS: Hydroxychloroquine Sulfate 200 MG TAB PO SCH (09:22)
[2019-07-18] MEDS: Enoxaparin Sodium 40 MG/0.4 ML SYRINGE SC SCH (09:22)
[2019-07-18] MEDS: Folic Acid 1 MG TAB PO SCH (09:23)
[2019-07-18] MEDS: Ferrous Sulfate 325 MG TAB PO SCH (09:23)
[2019-07-18] MEDS: Aspirin Chewable 81 MG TAB PO SCH (09:23)
[2019-07-18] MEDS: Multivit, Therapeutic 1 TAB PO SCH (09:23)
[2019-07-18] MEDS: oxyCODONE/Acetaminophen 5 mg/325 mg Tablet PO PRN ×2 (09:23→20:47)
[2019-07-18] MEDS: Gabapentin 300 MG CAP PO SCH ×3 (09:23→20:48)
--- NOTE | 2019-07-18 16:22 | PDOC.HOSPP ---
- Subjective Encounter Date: 07/17/19 Encounter Time: 16:45 Subjective: pt up in bed feels much better than yesterday - Objective Vital Signs & Weight: Vital Signs (12 hours) Temp Pulse Resp BP BP Pulse Ox 07/18/19 15:17 98.4 F 99 22 H 129/66 88 L 07/18/19 11:48 98.2 F 97 20 145/63 H 90 L 07/18/19 07:59 98.4 F 96 20 130/59 L 95 Weight Weight 210 lb 8.663 oz I&O: 07/17/19 07/18/19 07/19/19 06:59 06:59 06:59 Intake Total 1700 Output Total 1000 Balance 700 Result Diagrams: 07/18/19 08:16 07/18/19 08:16 Hospitalist ROS - Review of Systems Cardiovascular: denies: chest pain, palpitations, orthopnea, paroxysmal noc. dyspnea, edema, light headedness, other Gastrointestinal: denies: nausea, vomiting, abdominal pain, diarrhea, constipation, melena, hematochezia, other Genitourinary: denies: dysuria, frequency, incontinence, hematuria, retention, other - Medication Medications: Active Medications Generic Name Dose Route Start Last Admin Trade Name Freq PRN Reason Stop Dose Admin Acetaminophen 650 mg 07/11/19 16:46 07/17/19 21:19 Tylenol PO 650 mg Q4H PRN Administration Headache/Fever/Mild Pain (1-3) Albuterol Sulfate 1 puff 07/16/19 19:07 07/17/19 09:53 Proventil Hfa INH 1 puff Q4H PRN Administration SOB &/or Wheezing Alprazolam 0.25 mg 07/16/19 21:01 07/17/19 21:20 Xanax PO 0.25 mg BIDPRN PRN Administration Anxiety Amitriptyline HCl 25 mg 07/12/19 09:00 07/15/19 09:05 Elavil PO Not Given DAILY BERNDA Aspirin 81 mg 07/12/19 09:00 07/18/19 09:23 Aspirin Chewable PO 81 mg DAILY BRENDA Administration Atorvastatin Calcium 10 mg 07/11/19 21:00 07/17/19 21:06 Lipitor PO 10 mg QPM BRENDA Administration Bupropion HCl 300 mg 07/12/19 09:00 07/18/19 09:21 Wellbutrin Xl PO 300 mg DAILY BRENDA Administration Clonidine 0.1 mg 07/12/19 21:31 07/12/19 22:06 Catapres PO 0.1 mg Q4H PRN Administration SBP Greater Than 180 Diltiazem HCl 180 mg 07/18/19 12:00 07/18/19 11:57 Cardizem Cd PO 180 mg 1200 BRENDA Administration Enoxaparin Sodium 40 mg 07/13/19 09:00 07/18/19 09:22 Lovenox SC 40 mg 0900 BRENDA Administration Ferrous Sulfate 325 mg 07/12/19 09:00 07/18/19 09:23 Feosol PO 325 mg DAILY BRENDA Administration Folic Acid 1 mg 07/13/19 09:00 07/18/19 09:23 Folvite PO 1 mg DAILY BRENDA Administration Gabapentin 300 mg 07/13/19 15:00 07/18/19 15:17 Neurontin PO 300 mg TID BRENDA Administration Multivitamins 1 tab 07/13/19 09:00 07/18/19 09:23 Theragran PO 1 tab DAILY BRENDA Administration Oxycodone/Acetaminophen 1 tab 07/13/19 16:42 07/18/19 09:23 Percocet 5/325 PO 1 tab Q4H PRN Administration Pain Pantoprazole Sodium 40 mg 07/12/19 21:00 07/18/19 09:23 Protonix PO 40 mg BID BRENDA Administration Sodium Chloride 10 ml 07/16/19 21:00 07/18/19 09:23 Flush - Normal Saline IVF 10 ml Q12HR BRENDA Administration Tramadol HCl 50 mg 07/13/19 10:04 07/17/19 15:43 Ultram PO 50 mg Q6H PRN Administration Mild-Moderate Pain (1-5) - Exam Neck: negative: supple, symmetric, no JVD, no thyromegaly, no lymphadenopathy, no carotid bruit, JVD Heart: negative: RRR, no murmur, no gallops, no rubs, normal peripheral pulses, irregular, diminshed peripheral pulses, murmur present, II/IV, III/IV Respiratory: negative: CTAB, no wheezes, no rales, no ronchi, normal chest expansion, no tachypnea, normal percussion, rales, rhonchi, tachypneic, wheezes Gastrointestinal: negative: soft, non-tender, non-distended, normal bowel sounds , no palpable masses, no hepatomegaly, no splenomegaly, no bruit, no guarding, no rigidity, tender to palpation, distended, diminished bowl sounds, voluntary guarding Hosp A/P (1) COVID-19 virus detected Code(s): U07.1 - COVID-19 Status: Acute (2) SOB (shortness of breath) Code(s): R06.02 - SHORTNESS OF BREATH Status: Acute (3) COPD (chronic obstructive pulmonary disease) Status: Acute (4) DM2 (diabetes mellitus, type 2) Status: Chronic (5) HTN (hypertension) Code(s): I10 - ESSENTIAL (PRIMARY) HYPERTENSION Status: Chronic (6) Leukopenia Code(s): D72.819 - DECREASED WHITE BLOOD CELL COUNT, UNSPECIFIED Status: Acute (7) Atrial flutter Code(s): I48.92 - UNSPECIFIED ATRIAL FLUTTER Status: Acute - Plan will continue hydroxychloroquine. pt is still on oxy 2-3L, no need for abx for now. she does have a headache and some chest pain. her trops are mildly elevated possible some viral myocarditis. will monitor. echo pending. she did have some loose stools will monitor. she had fever of 101 will monitor, if she has recurrent will get blood cx and cxr. clinically pt states that she feels well. will hold her RA meds for now. 07/12 pt states she feels well overall and wants to go home. I educated her that is she is afebrile and continues to feel well possible discharge. will monitor. she has no more loose stools. I have encouraged her to drink more water. she has no more chest pain. 07/13 cxr indicated infiltrate to rul. will start her on abx. she clinically feels well but has been spiking fever. will give her Ns lL. will give her IS. she is still at a high risk of decompensation. Her symptoms started 07/04. 07/14 pt still is spiking a fever. she is using her IS. I am hesitant to send her home. will watch her for 24-48h until she is afebrile. continue abx/ hydroxychloroquine. 07/15 pt wanted to go home, i recommended her to stay but she wanted to go home. Approximately 10 min after i left her room she became tachycardia hr in 130-140 , appeared to be in flutter. ekg was ordered. will check trops. She was given some metoprolol. she also spiked a fever. will check other labs. will repeat cxr in am. Her oxygen requirement is also worsening. she is at baseline 2-3l. will consult cardio and may need pulm. will hold off on her albuterol inhaler. 07/16 pt has been feeling well after her lasix, will monitor. will continue current abx. her xray is a bit worse but clinically today she is feeling better than yesterday. Her bnp was elevated today.
--- NOTE | 2019-07-18 16:25 | PDOC.HOSPP ---
- Subjective Encounter Date: 07/18/19 Encounter Time: 14:45 Subjective: pt up in bed feels much better, afebrile - Objective Vital Signs & Weight: Vital Signs (12 hours) Temp Pulse Resp BP BP Pulse Ox 07/18/19 15:17 98.4 F 99 22 H 129/66 88 L 07/18/19 11:48 98.2 F 97 20 145/63 H 90 L 07/18/19 07:59 98.4 F 96 20 130/59 L 95 Weight Weight 210 lb 8.663 oz I&O: 07/17/19 07/18/19 07/19/19 06:59 06:59 06:59 Intake Total 1700 Output Total 1000 Balance 700 Result Diagrams: 07/18/19 08:16 07/18/19 08:16 Hospitalist ROS - Review of Systems Cardiovascular: denies: chest pain, palpitations, orthopnea, paroxysmal noc. dyspnea, edema, light headedness, other Gastrointestinal: denies: nausea, vomiting, abdominal pain, diarrhea, constipation, melena, hematochezia, other Genitourinary: denies: dysuria, frequency, incontinence, hematuria, retention, other - Medication Medications: Active Medications Generic Name Dose Route Start Last Admin Trade Name Freq PRN Reason Stop Dose Admin Acetaminophen 650 mg 07/11/19 16:46 07/17/19 21:19 Tylenol PO 650 mg Q4H PRN Administration Headache/Fever/Mild Pain (1-3) Albuterol Sulfate 1 puff 07/16/19 19:07 07/17/19 09:53 Proventil Hfa INH 1 puff Q4H PRN Administration SOB &/or Wheezing Alprazolam 0.25 mg 07/16/19 21:01 07/17/19 21:20 Xanax PO 0.25 mg BIDPRN PRN Administration Anxiety Amitriptyline HCl 25 mg 07/12/19 09:00 07/15/19 09:05 Elavil PO Not Given DAILY BRENDA Aspirin 81 mg 07/12/19 09:00 07/18/19 09:23 Aspirin Chewable PO 81 mg DAILY BRENDA Administration Atorvastatin Calcium 10 mg 07/11/19 21:00 07/17/19 21:06 Lipitor PO 10 mg QPM BRENDA Administration Bupropion HCl 300 mg 07/12/19 09:00 07/18/19 09:21 Wellbutrin Xl PO 300 mg DAILY BRENDA Administration Clonidine 0.1 mg 07/12/19 21:31 07/12/19 22:06 Catapres PO 0.1 mg Q4H PRN Administration SBP Greater Than 180 Diltiazem HCl 180 mg 07/18/19 12:00 07/18/19 11:57 Cardizem Cd PO 180 mg 1200 BRENDA Administration Enoxaparin Sodium 40 mg 07/13/19 09:00 07/18/19 09:22 Lovenox SC 40 mg 0900 BRENDA Administration Ferrous Sulfate 325 mg 07/12/19 09:00 07/18/19 09:23 Feosol PO 325 mg DAILY BRENDA Administration Folic Acid 1 mg 07/13/19 09:00 07/18/19 09:23 Folvite PO 1 mg DAILY BRENDA Administration Gabapentin 300 mg 07/13/19 15:00 07/18/19 15:17 Neurontin PO 300 mg TID BRENDA Administration Multivitamins 1 tab 07/13/19 09:00 07/18/19 09:23 Theragran PO 1 tab DAILY BRENDA Administration Oxycodone/Acetaminophen 1 tab 07/13/19 16:42 07/18/19 09:23 Percocet 5/325 PO 1 tab Q4H PRN Administration Pain Pantoprazole Sodium 40 mg 07/12/19 21:00 07/18/19 09:23 Protonix PO 40 mg BID BRENDA Administration Sodium Chloride 10 ml 07/16/19 21:00 07/18/19 09:23 Flush - Normal Saline IVF 10 ml Q12HR BRENDA Administration Tramadol HCl 50 mg 07/13/19 10:04 07/17/19 15:43 Ultram PO 50 mg Q6H PRN Administration Mild-Moderate Pain (1-5) - Exam Neck: negative: supple, symmetric, no JVD, no thyromegaly, no lymphadenopathy, no carotid bruit, JVD Heart: negative: RRR, no murmur, no gallops, no rubs, normal peripheral pulses, irregular, diminshed peripheral pulses, murmur present, II/IV, III/IV Respiratory: negative: CTAB, no wheezes, no rales, no ronchi, normal chest expansion, no tachypnea, normal percussion, rales, rhonchi, tachypneic, wheezes Gastrointestinal - other findings: diminshed breath sound to bases Hosp A/P (1) COVID-19 virus detected Code(s): U07.1 - COVID-19 Status: Acute (2) SOB (shortness of breath) Code(s): R06.02 - SHORTNESS OF BREATH Status: Acute (3) COPD (chronic obstructive pulmonary disease) Status: Acute (4) DM2 (diabetes mellitus, type 2) Status: Chronic (5) HTN (hypertension) Code(s): I10 - ESSENTIAL (PRIMARY) HYPERTENSION Status: Chronic (6) Leukopenia Code(s): D72.819 - DECREASED WHITE BLOOD CELL COUNT, UNSPECIFIED Status: Acute (7) Atrial flutter Code(s): I48.92 - UNSPECIFIED ATRIAL FLUTTER Status: Acute - Plan will continue hydroxychloroquine. pt is still on oxy 2-3L, no need for abx for now. she does have a headache and some chest pain. her trops are mildly elevated possible some viral myocarditis. will monitor. echo pending. she did have some loose stools will monitor. she had fever of 101 will monitor, if she has recurrent will get blood cx and cxr. clinically pt states that she feels well. will hold her RA meds for now. 07/12 pt states she feels well overall and wants to go home. I educated her that is she is afebrile and continues to feel well possible discharge. will monitor. she has no more loose stools. I have encouraged her to drink more water. she has no more chest pain. 07/13 cxr indicated infiltrate to rul. will start her on abx. she clinically feels well but has been spiking fever. will give her Ns lL. will give her IS. she is still at a high risk of decompensation. Her symptoms started 07/04. 07/14 pt still is spiking a fever. she is using her IS. I am hesitant to send her home. will watch her for 24-48h until she is afebrile. continue abx/ hydroxychloroquine. 07/15 pt wanted to go home, i recommended her to stay but she wanted to go home. Approximately 10 min after i left her room she became tachycardia hr in 130-140 , appeared to be in flutter. ekg was ordered. will check trops. She was given some metoprolol. she also spiked a fever. will check other labs. will repeat cxr in am. Her oxygen requirement is also worsening. she is at baseline 2-3l. will consult cardio and may need pulm. will hold off on her albuterol inhaler. 07/16 pt has been feeling well after her lasix, will monitor. will continue current abx. her xray is a bit worse but clinically today she is feeling better than yesterday. Her bnp was elevated today. 07/17 will continue current tx and watch her for one more day. she has been afebrile and is doing well. will switch her abx to oral. she has had 5 days of azithro and has had her course of hydroxychloroquine. will start her home dose. possible discharge in am if she feels well and no events overnight. will order cxr. Her crp has improved.
[2019-07-18] MEDS: PROVENTIL INHALER 6.7 G (200 INHALATIONS) INH PRN (20:38)
[2019-07-18] MEDS: Atorvastatin Calcium 10 MG TAB PO SCH (20:48)
[2019-07-19] MEDS: ALPRAZolam 0.25 MG TAB PO PRN (00:26)
[2019-07-19 05:28] LABS: #Eosinphils 0.1 thou/uL (0.0-0.7); #Lymphocytes 1.2 thou/uL (1.20-3.40); #Monocytes 0.6 thou/uL (0.11-0.59); #Neutrophils 3.3 thou/uL (1.40-6.50); %Basophils 0.8 % (0.0-1.0); %Eosinophils 1.1 % (0.0-10.0); %Lymphocytes 22.7 % (21.0-51.0); %Monocytes 11.1 % (0.0-10.0); %Neutrophils 64.3 % (42.0-75.0); Hemoglobin 9.8 g/dL (12.0-16.0); Mean Corpuscular HGB CONC 32.1 g/dL (32.0-36.0); Mean Corpuscular Hemoglobin 29.5 pg (27.0-31.0); Mean Corpuscular Volume 91.9 fL (78.0-98.0); Mean Platelet Volume 8.3 fL (7.4-10.4); Platelet Count 247 thou/uL (130-400); RBC Distribution Width 15.9 % (11.5-14.5); Red Blood Cell (RBC) Count 3.31 mill/uL (4.20-5.40); White Blood Cell (WBC) Count 5.1 thou/uL (4.8-10.8)
[2019-07-19 05:46] LABS: ALT (SGPT) 20 U/L (8-55); AST (SGOT) 34 U/L (5-34); Alkaline Phosphatase 62 U/L (40-110); Anion Gap 13 mmol/L (10-20); BUN (Urea Nitrogen) 22 mg/dL (9.8-20.1); Bilirubin, Total 0.4 mg/dL (0.2-1.2); Calc. Creatinine Clearance 44 mL/min (70-130); Calcium 9.1 mg/dL (7.8-10.44); Carbon Dioxide 28 mmol/L (23-31); Chloride 108 mmol/L (98-107); Estimated GFR-MDRD 27; Globulin 3.4 g/dL (2.4-3.5); Glucose 186 mg/dL (80-115); Potassium 3.8 mmol/L (3.5-5.1); Protein, Total 6.4 g/dL (6.0-8.3); Sodium 145 mmol/L (136-145)
--- NOTE | 2019-07-19 07:30 | RAD ---
SINGLE VIEW CHEST: Date: 07/19/2019 COMPARISON: 07/17/2019. HISTORY: Shortness of breath. FINDINGS: Single view of the chest shows an enlarged cardiomediastinal silhouette. There are bilateral perihila r opacities which may represent the patient's normal pulmonary vasculature. There is stable elevation of the right hemidiaphragm. Atelectasis is seen in both lung bases. IMPRESSION: Stable exam. POS: C
[2019-07-19] MEDS ORDERED: Hydroxychloroquine Sulfate 200 MG TAB PO SCH (09:00)
[2019-07-19] MEDS ORDERED: Doxycycline 100 MG CAP PO SCH (09:00)
[2019-07-19] MEDS: Bupropion 150 MG XL TAB PO SCH (09:31)
[2019-07-19] MEDS: Ferrous Sulfate 325 MG TAB PO SCH (09:32)
[2019-07-19] MEDS: Multivit, Therapeutic 1 TAB PO SCH (09:32)
[2019-07-19] MEDS: Gabapentin 300 MG CAP PO SCH ×2 (09:32→15:18)
[2019-07-19] MEDS: Folic Acid 1 MG TAB PO SCH (09:32)
[2019-07-19] MEDS: Amitriptyline HCl 25 MG TAB PO SCH (09:32)
[2019-07-19] MEDS: Aspirin Chewable 81 MG TAB PO SCH (09:32)
[2019-07-19 13:08] VITALS: BP 138/66; TEMP 98.2
--- NOTE | 2019-07-19 23:39 | DIS ---
DATE OF ADMISSION: 07/11/2019 DATE OF DISCHARGE: 07/19/2019 DISCHARGE DIAGNOSES: As of the followin. COVID positive. 2. Shortness of breath. 3. Chronic obstructive pulmonary disease, on oxygen. 4. Diabetes. 5. Hypertension. 6. Elevated troponins. 7. Leukopenia, resolved. 8. Atrial flutter, resolved. HOSPITAL COURSE: The patient is a very nice 68-year-old female with a history of rheumatoid arthritis on hydroxychloroquine, Arava, and sulfasalazine, who presents to the hospital after she was found to be COVID positive. Please refer to my H and P for further details. The patient apparently traveled to [place] with her sister, who also traveled from [place] to [place] to meet her other sister in [place]. The patient stated that for the past few days, she has been feeling unwell. At this time, she went to her local primary care doctor, who referred her for possible COVID testing. She then was found to be positive. She was at baseline at 2 to 3 L, however, was getting more short of breath, so she came to the hospital for further evaluation. The patient at this time was monitored and conservative treatment was started on her, which included a loading dose of hydroxychloroquine at 400 mg for 2 doses and then 200 mg twice a day. She initially did well. However, through the hospital course, she spiked fevers. Her chest x-ray initially was normal, however later on, had some infiltrate noted. She was on community-acquired antibiotics with azithromycin and ceftriaxone. She continued to spike fever for about 24 to 48 hours. It is not requiring high oxygen saturations. She also had elevated troponins mildly and initially when she came in, she did have some chest pain which resolved. We did do an echocardiogram on her, which indicated an EF of 45% to 50%. Left atrium was moderately dilated and [id number] aortic regurgitation was noted. A few days prior to discharge, she wanted to really go home. At this time, I advised her against it given her continues to having fevers. At this time, she went into atrial flutter. She was initially given some beta blockers and then Cardiology was consulted. She was then put on a calcium channel cami and did really well. Initially, her CRP was 21, later on 15, and on discharge was 11. She has been doing really well. She requires about 3 to 4 L at home. She was on 4.5 L. Her chest x-ray appeared well. She did have some mildly elevated BNP. I have given her a few doses of Lasix, she did well. The patient feels great. She has been afebrile for over 48 hours. Her inflammatory markers are coming down. She is more than 12 to 14 days out from her initial exposure. We will continue to monitor her as an outpatient. The patient has been asked to follow up with her primary care doctor, and she has also been asked to come into the hospital if any changes occur. I have told her to stop her sulfasalazine and Arava for now. She will continue the hydroxychloroquine. HOME MEDICATIONS: Her home medications will be: 1. Doxycycline 100 mg twice a day. 2. Cardizem 180 mg daily. 3. Bupropion 200 mg daily. 4. Pravastatin 40 mg daily. 5. Multivitamin one p.o. daily. 6. Protonix 40 mg b.i.d. 7. Gabapentin twice a day. 8. Hydroxychloroquine 200 mg daily. 9. Folic acid one p.o. daily. 10. Iron 325 daily. 11. Aspirin 81 mg daily. 12. Amitriptyline 25 mg at bedtime and again she is back to sinus rhythm. PHYSICAL EXAMINATION: VITAL SIGNS: Temperature 98.2, pulse 99, respirations 18, oxygen saturation 92% on 4.5 L, and blood pressure 138/66. GENERAL: She is awake, alert, and oriented x3. Does not appear in distress. CV: S1 and S2 present. No murmurs, rubs, or gallops. LUNGS: Again lungs appear clear. She did have some mildly elevated creatinine. I have told her that she will require a followup for BMP next week. She understands. Job ID: [id number]
--- NOTE | 2019-07-22 10:34 | PQF ---
CLINICAL DOCUMENTATION IMPROVEMENT CLARIFICATION FORM: ICD-10 Updated PLEASE DO AN ADDENDUM TO THE PROGRESS NOTE WITH ANY DOCUMENTATION UPDATES OR ADDITIONS AND CARRY THROUGH TO DC SUMMARY. THANK YOU. DATE: 07/22/2019 ATTN: Dr. Hamilton Please exercise your independent, professional judgment in responding to the clarification form. Clinical indicators are provided on the bottom of this form for your review Please check appropriate box(es): [ ] Sepsis present on admission [ ] Sepsis NOT present on admission [ ] Unable to determine Due to: [ ] Localized infection without sepsis [ ] Other diagnosis [ ] Unable to determine For continuity of documentation, please document condition throughout progress notes and discharge summary. Thank You. CLINICAL INDICATORS - SIGNS / SYMPTOMS / LABS / RESULTS AND LOCATION IN MR H&P 07/10: VS: Temp. 99.6, pulse 97, resp. 20, Oxygen sat 94% on 2L BP 141/64 WBCs 2.4 COVID test was positive 07/13 (Joy) cxr indicated infiltrate to rul, will start her on abx. 07/15 (Francisca) Event note: Contacted by RN, pt with tachycardia and bolus ordered earlier. Temp taken now is 101.4 LAB 07/15: C-Reactive Protein 21.94 07/16 (Omi) Coronavirus disease pneumonitis RISKS: H&P 07/10: PMH: She has rheumatoid arthritis, HTN, COPD, on 2 to 3l of oxygen. A/P: Her COVID test was positive. Leukopenia. This is most likely 2/2 her COVID virus. 07/16 (Omi) Coronavirus disease pneumonitis TREATMENT: Order 07/13-07/17 IV Rocephin Order 07/13-07/17: IV Zithromax Order 07/13: NS 1,000 ml bolus. Order 07/15: NS 500ml IV bolus Thank you, Zita (This form is maintained as a part of the permanent medical record) 2014 [employer]. All Rights Reserved Zita Worrell RN, BSN [email or web address] [place] [employer] [facility]
--- NOTE | 2019-07-22 23:10 | PQF ---
ACROLA FORD JC LOPEZ [id number] [facility]-248 [id number] CLINICAL DOCUMENTATION CLARIFICATION FORM: POST DISCHARGE Addendum to original discharge summary date: ____ Late entry note date: __ DATE: 07/22/2019 ATTN:JC LOPEZ Please exercise your independent, professional judgment in responding to the clarification form. Clinical indicators are provided on the bottom of this form for your review Please check appropriate box(s):. HEART FAILURE: A. TYPE: [ ] Systolic / HFrEF [ ] Diastolic / HFpEF [ ] Combined Systolic / Diastolic B. ACUITY [ ] Acute [ ] Acute on Chronic [ ] Chronic [ ] Other diagnosis [ ] Unable to determine In addition, please specify: Present on Admission (POA): [ ] Yes [ ] No [ ] Unable to determine For continuity of documentation, please document condition throughout progress notes and discharge summary. Thank You. CLINICAL INDICATORS - SIGNS / SYMPTOMS / LABS - Shortness of breath-DS, 07/18, JC LOPEZ - She did have some chest pain-DS, 07/18, JC LOPEZ - Indicated EF of 45% to 50%- DS, 07/18, JC LOPEZ - Left atrium was moderately dilated and mild-to moderate aortic regurgitation was noted -DS, 07/18, JC LOPEZ - She did have some mildly elevated BNP- , 07/18, JC LOPEZ - BNP: 544.2H- Laboratory report, 07/15 RISKS: -Hypertension- DS, 07/18, JC LOPEZ -COVID 19 positive-DS, 07/18, JC LOPEZ TREATMENTS: - Oxygen- DS, 07/18, JC LOPEZ - Given her a few dose of Lasix- DS, 07/18, JC LOPEZ Community Health Nurse Staff [employer] (This form is maintained as a part of the permanent medical record) 2014 [employer]. All Rights Reserved Harjeet [email or web address] [email or web address]
--- NOTE | 2019-07-25 07:33 | EKG ---
Test Reason : STAT Blood Pressure : / mmHG Vent. Rate : 120 BPM Atrial Rate : 120 BPM P-R Int : 158 ms QRS Dur : 140 ms QT Int : 332 ms P-R-T Axes : 019 114 021 degrees QTc Int : 469 ms Sinus tachycardia Indeterminate axis Right bundle branch block Anterolateral infarct (cited on or before 27-JAN-2017) Abnormal ECG Confirmed by SHAMEKA FERNÁNDEZ MD ([id number]) on 07/25/2019 7:33:27 AM Referred By: JC LOPEZ Confirmed By:SHAMEKA FERNÁNDEZ MD
== END 2019-07-19 16:12 | disposition home or self-care (01) | DRG 177 ==
LOC: ERS 11:41 → 2SW 15:15 → OBSVTOIN 15:16
PROVIDERS: ADMIT Internal Medicine; ATTEND Internal Medicine
PROC: 8E0ZXY6 Isolation (ICD-10-PCS; principal; 2019-07-11)
DX: U07.1 COVID-19 (principal); J12.89 Other viral pneumonia; J44.1 Chronic obstructive pulmonary disease with (acute) exacerbation; I48.92 Unspecified atrial flutter; C76.0 Malignant neoplasm of head, face and neck; R79.89 Other specified abnormal findings of blood chemistry; M06.9 Rheumatoid arthritis, unspecified; I35.1 Nonrheumatic aortic (valve) insufficiency; I12.9 Hypertensive chronic kidney disease with stage 1 through stage 4 chronic kidney disease, or unspecified chronic kidney disease; N18.3 Chronic kidney disease, stage 3 (moderate); F32.9 Major depressive disorder, single episode, unspecified; D69.6 Thrombocytopenia, unspecified; E11.40 Type 2 diabetes mellitus with diabetic neuropathy, unspecified; Z96.641 Presence of right artificial hip joint; Z79.01 Long term (current) use of anticoagulants; Z87.891 Personal history of nicotine dependence; Z87.442 Personal history of urinary calculi; Z88.1 Allergy status to other antibiotic agents; Z88.8 Allergy status to other drugs, medicaments and biological substances; Z90.710 Acquired absence of both cervix and uterus; Z90.49 Acquired absence of other specified parts of digestive tract; Z79.4 Long term (current) use of insulin; Z98.84 Bariatric surgery status; Z99.81 Dependence on supplemental oxygen
CPT/HCPCS: 36415; 71045; 80048; 80053; 80076; 82553; 82728; 83615; 83735; 83880; 84484; 85025; 86140; 87040; 93005; 93010; 93306; 94664; 96374; J0456; J0696; J1650; J1940; J3475; J3490; J7050

== ENCOUNTER 2020-04-30 18:58 | Inpatient (IN) | payer MEDICARE, OTHER ==
[~2020-04-30 18:58] MED LIST: Glycopyrrolate 0.2 MG/ML 5 ML SYRINGE ONE; Metoprolol Tartrate 5 MG/5 ML VIAL ONE; Ondansetron PF 4 MG/2 ML Vial ONE; PHENYLEPHRINE-NS 100 MCG/ML 10 ML SYRINGE ONE; PROPOFOL 200 MG/20 ML VIAL ONE; Rocuronium Bromide 10 MG/ML (10ML VIAL) ONE; Succinylcholine 200 MG/10 ml SYRINGE FS ONE
[2020-04-30] MEDS ORDERED: Mannitol 12.5 GM/50 ML IV SCH (19:30)
[2020-04-30] MEDS ORDERED: CEFAZOLIN 2 GM in Premix Bag 1 BAG IVPB SCH (19:30)
[2020-04-30] MEDS ORDERED: Midazolam HCl 2 mg/2 ml Vial ONE (19:32)
[2020-04-30] MEDS ORDERED: Fentanyl 250 MCG/5 ML VIAL ONE (19:32)
[2020-04-30] MEDS ORDERED: Lidocaine 0.5%/Epinephrine 1:200,000 50 ml Vial ONE (19:40)
[2020-04-30] MEDS ORDERED: Thrombin 5000 UNITS/5 ML VIAL ONE (19:40)
[2020-04-30] MEDS ORDERED: Bacitracin Zinc Ointment 30 gm TUBE ONE (19:40)
[2020-04-30] MEDS ORDERED: Mannitol 12.5 GM/50 ML ONE (19:50)
[2020-04-30] MEDS ORDERED: Sodium Chloride 0.9% 0 ML ONE (20:38)
[2020-04-30] MEDS ORDERED: levETIRAcetam in NS 100 ML ONE (20:43)
[2020-04-30] MEDS ORDERED: Hydrocortisone Sod Succ/PF 100 mg/2 ml Vial ONE (20:47)
[2020-04-30] MEDS ORDERED: Sodium Chloride 0.9% 10 ML ONE ×2 (21:19→21:44)
[2020-04-30] MEDS ORDERED: Mag-Al 1200 mg/1200 mg/30 ML UDCUP PO PRN (22:41)
[2020-04-30] MEDS ORDERED: Promethazine HCl 25 MG/ML VIAL IM PRN ×2 (22:41→23:05)
[2020-04-30] MEDS ORDERED: diphenhydrAMINE 50 MG/ML VIAL IVP PRN (22:41)
[2020-04-30] MEDS ORDERED: Promethazine 25 MG TAB PO PRN (22:41)
[2020-04-30] MEDS ORDERED: Morphine 2 MG/ML VIAL SLOW IVP PRN (22:41)
--- NOTE | 2020-04-30 23:00 | HP ---
REQUESTING PHYSICIAN: Dr. Anna. ATTENDING SURGEON: Dr. Varela. CONSULTATIONS: Neurosurgery, Dr. Mercedes. HISTORY OF PRESENT ILLNESS: Patient is a 69-year-old woman, who presented to our emergency department as a transfer from [facility]. She presented there after reportedly having fall couple days earlier. Yesterday, she came and got evaluated as she was continued to have headaches and feeling dizzy. She underwent evaluation and examination, and her scans were interpreted as unremarkable and she was able to be discharged home today, though she has continued to have pain on the right side of her head. She then reportedly became altered and was taken to the emergency department in [place], where she underwent evaluation and examination, was noted to have a subdural hematoma with midline shift; at which time, she was transferred to our facility for evaluation and admission. In the emergency department, she was evaluated by Neurosurgery who also reviewed her previous CT scans and decision made that she will be taken emergently to the operating room for craniotomy. ALLERGIES: MACRODANTIN, NITROFURANTOIN. CURRENT MEDICATIONS: Patient is a poor historian, but gathered from previous admissions. Patient takes: 1. Protonix. 2. Pravastatin. 3. Actos. 4. Gabapentin. 5. Cymbalta. 6. Cardizem. 7. Amitriptyline. 8. Wellbutrin. 9. Metoprolol. 10. Fentanyl patches. 11. Albuterol. 12. Budesonide. 13. Brovana. 14. Baby aspirin. 15. Docusate. 16. Zofran. 17. Folic acid. 18. Iron. PAST MEDICAL HISTORY: 1. Coronary artery disease, history of UT x2 with stent placement x1. 2. CKD, stage 4. 3. Rheumatoid arthritis. 4. Type 2 diabetes. 5. Chronic systolic CHF with an EF of 45% to 50%. 6. COPD with chronic O2 usage of 4 L. PAST SURGICAL HISTORY: 1. Cholecystectomy and hysterectomy. 2. Appendectomy. 3. Gastric bypass. 4. Bilateral hip replacements. 5. Bilateral knee replacements. 6. Right shoulder surgery. 7. Right elbow surgery. 8. Depression. SOCIAL HISTORY: Patient lives independently. She quit smoking 10 years ago. She denies drug or alcohol abuse. REVIEW OF SYSTEMS: Ten-point review of systems is negative as otherwise stated. PHYSICAL EXAMINATION: VITAL SIGNS: Blood pressure 146/86, heart rate 85, respirations 20, oxygen saturation is 100% on 3 L via nasal cannula, and temperature is 98. GENERAL: The patient is resting comfortably in bed. She is awake at the time of my visit. She was keeping her eyes closed due to some photophobia. She would answer simple questions and follow simple commands. Her Waldron Coma Scale was 14-1 for eye opening. HEENT: Head is normocephalic. Right side forehead and periorbital area have swelling and ecchymosis noted. The patient is able to open her eye. Her extraocular motions intact. PERRLA bilaterally. Ears are atraumatic without discharge. Oropharynx is clear. NECK: Nontender. Trachea is midline with no JVD. CHEST: Has scattered scant wheezing and rhonchi bilaterally. HEART: Regular rate and rhythm. ABDOMEN: Soft, nontender with active bowel sounds. EXTREMITIES: Neurovascularly intact x4. Patient does have small contusion is noted on her right knee and right elbow. BACK: By report is atraumatic and nontender. LABORATORY FINDINGS: White blood cell count 9.4, hemoglobin 9.3, hematocrit 32.4, platelets 168. Sodium 140, potassium 5.0, chloride 106, CO2 of 23, BUN 44, creatinine 1.98, glucose 230. INR was 1.0. Urinalysis shows protein, ketones, small blood cells, small leukocyte esterase, 4 to 6 wbc's, 2+ bacteria. COVID influenza A and influenza B are negative. RADIOGRAPHIC REPORT: CT of the brain without contrast shows an acute subdural hematoma with mass effect upon the right cerebrum with sulci effacement and [id number] subfalcine herniation. There is loss of petersen-white matter differentiation in the right cerebrum. Possibility of cortical infarction cannot be excluded. CT of the cervical spine without contrast shows no acute osseous abnormality. AP chest x-ray shows no acute cardiopulmonary abnormality. ASSESSMENT: 1. Status post ground level fall with delayed presentation. 2. Altered mental status. 3. Subdural hematoma with midline shift. 4. History of coronary artery disease, myocardial infarction, chronic kidney disease, rheumatoid arthritis, type 2 diabetes, congestive heart failure, and chronic obstructive pulmonary disease. PLAN: Plan will be to have the patient go with Neurosurgery emergently to the operating room to undergo her craniotomy. Postoperatively, we will have the patient admitted to the critical care unit for close observation, serial exams, mannitol as directed by Neurosurgery, ventilatory support, pulmonary toilet, gastritis and mechanical VTE prophylaxis. Patient was evaluated in the emergency department with Dr. Varela. Job ID: [id number]
[2020-04-30] MEDS ORDERED: Meperidine HCl/PF 25 MG/ML VIAL SLOW IVP PRN (23:05)
[2020-04-30] MEDS ORDERED: Ketorolac Tromethamine 30 MG/ML VIAL IVP PRN (23:05)
[2020-04-30] MEDS ORDERED: Morphine Sulfate 2 MG/ML SYRINGE SLOW IVP PRN (23:05)
[2020-04-30] MEDS ORDERED: Promethazine HCl 25 MG/ML VIAL SLOW IVP PRN (23:05)
[2020-04-30] MEDS ORDERED: Ondansetron HCl/PF 4 MG/2 ML Vial IVP PRN (23:05)
[2020-04-30] MEDS ORDERED: HYDROmorphone 2 MG/ML VIAL SLOW IVP PRN (23:05)
[2020-04-30] MEDS ORDERED: PACU-Morphine 4MG/ML VIAL SLOW IVP PRN (23:05)
[2020-04-30] MEDS ORDERED: Ventilator Sedation Protocol 1 EACH FS SCH (23:16)
[2020-04-30] MEDS ORDERED: HumaLOG 300 UNITS/3 ML VIAL SC PRN (23:16)
[2020-04-30] MEDS ORDERED: Dextrose 5% in Water 1,000 ML IV PRN (23:16)
[2020-04-30] MEDS ORDERED: Sodium Chloride 0.9% 1,000 ML IV SCH (23:16)
[2020-04-30] MEDS ORDERED: Dextrose 50% Abboject 50 ML SYRINGE SLOW IVP PRN (23:16)
[2020-04-30] MEDS ORDERED: Ondansetron ODT 4 MG TAB PO PRN (23:16)
[2020-04-30] MEDS ORDERED: Labetalol HCl 100 MG/20 ML VIAL ONE (23:28)
[2020-04-30] MEDS ORDERED: Morphine 4 MG/ML VIAL ONE ×2 (23:28→23:51)
[2020-04-30] MEDS ORDERED: DISCONTINUE PREVIOUS NARCOTIC PAIN MEDICATIONS AND BENZODIAZEPINES FS SCH (23:30)
[2020-04-30] MEDS ORDERED: Fentanyl CADD 100 ML IV SCH (23:30)
[2020-04-30] MEDS ORDERED: Propofol 1,000 MG/100 ML VIAL IV PRN (23:30)
[2020-04-30] MEDS ORDERED: Propofol BOLUS 1,000 MG/100 ML VIAL IV PRN (23:30)
[2020-04-30] MEDS ORDERED: Morphine 4 MG/ML VIAL SLOW IVP PRN (23:30)
[2020-04-30] MEDS ORDERED: Lorazepam 2 MG/ML VIAL SLOW IVP PRN (23:30)
[2020-04-30] MEDS ORDERED: Fentanyl BOLUS 250 ML IVPB PRN (23:30)
--- NOTE | 2020-04-30 23:35 | PRG ---
DATE OF SERVICE: 04/30/2020 I personally interviewed the patient, reviewed records and imaging, and agreed with documentation of Xavier Martinez PA-C, dated 04/30/2020. Briefly, Vivian Smyth is a 69-year-old woman, dropped off at an emergency department at another institution this afternoon by her [id number] who found her down and with some altered mental status. CT examination of brain showed subacute and chronic subdural hematoma over the right hemisphere with midline shift and mass effect. She was transferred for neurosurgical care. In our emergency department, she was evaluated quickly. I saw her on the way to the operating room. Ms. Aj Smyth had open eyes. She conversed. She answered questions with one or two words appropriately. She moved all her extremities. She did not have any cranial neuropathies. I reviewed imaging and the findings are described above. The thickness of the subdural was over 1 cm and there was shift of at least 7 mm in the midline, and mass effect on the whole right hemisphere. Coagulation studies were normal. Platelet count was normal. Sodium was 140. We consented Ms. Aj Smyth to jojo holes and possible craniotomy, and took her to the operating room. Job ID: [id number]
[2020-05-01] MEDS ORDERED: Morphine 2 MG/ML VIAL ONE (00:22)
[2020-05-01] MEDS ORDERED: Fentanyl 100 MCG/2 ML VIAL ONE (00:35)
--- NOTE | 2020-05-01 00:37 | CON ---
DATE OF CONSULTATION: 04/30/2020 HISTORY OF PRESENT ILLNESS: Ms Smyth is a 69-year-old female who was brought in by EMS after being found by her [id number] at. EMS was called because patient was found down again this afternoon. She had a previous fall the day before. EMS reports that patient was too weak to get up and there is now evidence of facial trauma from her second fall. The patient was transferred from [facility] to [facility] due to a head CT indicating 1 cm right frontotemporal subdural hematoma with subfalcine herniation. Mass effect up on the right cerebrum. The patient was given 0.5 mg/kg IV bolus when she arrived to [facility]. REVIEW OF SYSTEMS: CONSTITUTIONAL: No known recent illness. Multiple falls. EYES: Right eye edema. ENT: Ears, nose, throat normal. CARDIAC: Denies chest pain, shortness of breath, diaphoresis. PULMONARY: Denies shortness of breath, cough, hemoptysis. GASTROINTESTINAL: Denies fecal incontinence, abdominal pain, nausea, vomiting, diarrhea, change in stool formation and consistency. GENITOURINARY: Denies urinary incontinence, trouble with urination, frequency of urination, bloody urine. SKIN: Denies skin rash, bruising, bleeding, skin masses. MUSCULOSKELETAL: As per history of present illness. NEUROLOGICAL: As per history of present illness. PSYCHOLOGICAL: As per history of present illness. PAST MEDICAL HISTORY: RA, COPD, stage 4 kidney disease, history of cervical cancer. PAST SURGICAL HISTORY: Bilateral knee replacement, bilateral hip replacement, right shoulder replacement, gastric bypass surgery, surgical appendectomy, surgical cholecystectomy, surgical section, surgical history of hysterectomy. SOCIAL HISTORY: Patient denies alcohol use. Denies drug use. Former tobacco user. Patient quit smoking less than 10 years ago. ALLERGIES: NITROFURANTOIN. CURRENT MEDICATIONS: None recorded, noncontributory. PHYSICAL EXAMINATION: VITAL SIGNS: BP 140/78, pulse 88, respiratory rate 18, temperature 96.6. CONSTITUTIONAL: Patient appears pale and ill. HEENT: Head, contusion to the right eyelid and eyebrow. Right eyelid swelling. Abrasion and swelling on her chin. Eyes, right eyelid as above. Pupils are equal. Extraocular movements are intact in the left eye. Right eye is swollen, shut. NECK: Soft, supple. No masses are noted. Range of motion is intact and nonpainful. NEUROLOGICAL: She is awake, alert, and oriented x3. Answerers question appropriately with a yes or no. Cranial nerves grossly intact. She has free active range of motion in all extremities. LABORATORY DATA: Sodium 140, PT 10.5, INR 1, PTT 26, platelets 168. COVID-19 Negative. IMAGING: Head CT, acute 1 cm right frontotemporal subdural hematoma with subfalcine herniation. Mass effect up on the right cerebrum. ASSESSMENT: 1. Fall. 2. Subdural hematoma. PLAN: Patient is take a daily aspirin 81 mg. No blood thinners. Emergent right craniotomy due to subdural hematoma and mass effect up on the right cerebrum. Patient n.p.o. status is unknown. Repeat CT of the brain tomorrow morning. Supportive care and SBP less than 130. We will have her follow up in 2 to 3 weeks in our clinic. Consent was read to the patient. Patient verbally understood the emergent craniotomy and expected results from surgery and the risk. She understood and wanted to proceed the the operation. INFORMED CONSENT: I discussed the indications, risks, benefits, alternatives, and expected results from surgery. The risks discussed included, but were not limited to, infection, bleeding, CSF leak, brain damage, significant loss of neurological function, seizure, stroke, dependency upon normal care, cardiopulmonary complications of anesthesia or . Long-term complications discussed included, but were not limited to, recurrence and future surgery. Patient understands the risks and is willing to proceed. Witnessed by nurseSulema at bedside in the Emergency Department Job ID: [id number] MTDD
[2020-05-01 01:41] VITALS: BMI 33.5
--- NOTE | 2020-05-01 02:06 | OP ---
DATE OF PROCEDURE: 04/30/2020 DIE STORAGE WORKER: Xavier Martinez PA-C PREOPERATIVE INDICATION: Prevent further neurological deterioration. PREOPERATIVE DIAGNOSIS: Acute on chronic subdural hematoma with mass effect with a right hemisphere midline shift and neurological decline. POSTOPERATIVE DIAGNOSIS: Acute on chronic subdural hematoma with mass effect with a right hemisphere midline shift and neurological decline. OPERATIVE PROCEDURE: Attempted jojo hole evacuation of subdural hematoma, conversion to full right frontotemporoparietal craniotomy, evacuation of subdural hematoma. PREOPERATIVE MEDICATION: Ancef 2 g IV. DRAIN NUMBER: One. DRAIN TYPE: Subgaleal. DESCRIPTION OF PROCEDURE: The patient was brought to the operating room. General endotracheal anesthesia was induced. The patient was carefully positioned supine with the right shoulder bumped up. The head was turned to the left and supported by a donut-shaped headrest. Hair was removed from the right side of the scalp with electric clippers. We marked out a question mallorie-shaped incision starting at the root of the zygoma, curving backwards over the parietal bone and then towards the midline anteriorly. We infused local anesthetic under a planned incision. We marked out 2 jojo hole incisions to start there with attempted evacuation through a smaller procedure. The scalp was sterilely prepped and draped. We opened our 2 planned jojo hole incisions which were part of our craniotomy incision. We placed self-retaining retractors and we used a perforating bit to place 2 jojo holes. We coagulated the dura starting over the parietal area and then over the frontal area. We opened the dura in a cruciate fashion and although a little bit of fluid came out, there was acute clot that could not be evacuated through the jojo holes. We converted to a craniotomy flap by opening our entire question-mallorie incision. We folded under a fishhook in a periosteal layer. We placed jojo holes at the root of zygoma and the frontal keyhole. Using a router, we fashioned a frontotemporoparietal craniotomy. We folded the craniotomy flap out of the field. We opened the dura in a cruciate fashion and there was a very thick acute clot over the surface of the brain. We gently irrigated it off the brain and lifted up off the frontal lobe and temporal lobe. There was no bleeding. There was a small clot on an artery just superior to the sylvian fissure that was left in place, in case that was the bleeding source. As we irrigated posteriorly over the parietal area, there was a tiny contusion on the surface of the brain. We lifted the clot gently with irrigation and there was a tiny arterial bleeder under the clot. This was the source of most of the hemorrhage. We gently coagulated it. We inspected, it was no longer bleeding at all. We irrigated the rest of the brain, removed clot carefully and there were no active bleeders. We placed small pledget of Surgicel over the sylvian vessel and over the parietal vessel and then we reapproximated the dura with 4-0 silk pop offs. Over the frontal lobe, the dura was not intact and we left Surgicel there. Titanium plates were attached to the patient's skull. It was brought back into the field and replaced into the craniotomy defect with screws. We tunneled the drain posteriorly through a separate stab incision. We closed the scalp in anatomical layers and we applied a sterile dressing. This was a clean case, no contamination. Job ID: [id number]
[2020-05-01] MEDS: Sodium Chloride 0.9% 1,000 ML IV SCH ×2 (02:45→17:30)
[2020-05-01 04:15] LABS: #Lymphocytes 0.7 thou/uL (1.20-3.40); #Monocytes 0.2 thou/uL (0.11-0.59); #Neutrophils 5.1 thou/uL (1.40-6.50); %Basophils 0.1 % (0.0-1.0); %Eosinophils 0.2 % (0.0-10.0); %Lymphocytes 11.8 % (21.0-51.0); %Neutrophils 83.9 % (42.0-75.0); Hemoglobin 8.5 g/dL (12.0-16.0); Mean Corpuscular HGB CONC 30.9 g/dL (32.0-36.0); Mean Corpuscular Hemoglobin 28.1 pg (27.0-31.0); Mean Corpuscular Volume 90.9 fL (78.0-98.0); Mean Platelet Volume 8.2 fL (7.4-10.4); Platelet Count 159 thou/uL (130-400); RBC Distribution Width 14.9 % (11.5-14.5); Red Blood Cell (RBC) Count 3.01 mill/uL (4.20-5.40); White Blood Cell (WBC) Count 6.1 thou/uL (4.8-10.8)
[2020-05-01 04:36] LABS: Anion Gap 13 mmol/L (10-20); BUN (Urea Nitrogen) 38 mg/dL (9.8-20.1); Calc. Creatinine Clearance 43 mL/min (70-130); Calcium 8.3 mg/dL (7.8-10.44); Carbon Dioxide 25 mmol/L (23-31); Chloride 106 mmol/L (98-107); Glucose 179 mg/dL (80-115); Magnesium 2.2 mg/dL (1.6-2.6); Phosphorus 5.6 mg/dL (2.3-4.7); Potassium 5.2 mmol/L (3.5-5.1); Sodium 139 mmol/L (136-145)
--- NOTE | 2020-05-01 07:16 | CT ---
PRELIMINARY REPORT/[facility]/EMERGENCY AFTER HOURS PROCEDURE EXAM: CT Head Without Intravenous Contrast. CLINICAL HISTORY: FOLLOW UP CRANIOTOMY//RT [facility] EVACUATION TECHNIQUE: Axial computed tomography images of the head/brain without intravenous contrast. COMPARISON: None provided. FINDINGS: BRAIN: There is a small amount of subdural hematoma in the right frontal, parietal, and the temporal region with mild pneumocephaly. There is a mild midline shift to the left side for about 4 mm. There is maybe small amounts of subarachnoid hemorrhage in the right frontal and parietal region. VENTRICLES: No hydrocephalus. ORBITS: The orbits are unremarkable. SINUSES AND MASTOIDS: The paranasal sinuses and mastoid air cells are clear. SOFT TISSUES: No significant facial or scalp soft tissue swelling evident. No radiopaque foreign body is seen. BONES: No acute skull fracture. MISCELLANEOUS: The patient has had the right temporal and frontal craniotomy. IMPRESSION: 1. The patient has had the right temporal and frontal craniotomy. 2. There is a small amount of subdural hematoma in the right frontal, parietal, and the temporal brennan on with mild pneumocephaly. 3. There is maybe small amounts of subarachnoid hemorrhage in the right frontal and parietal region. ELECTRONICALLY SIGNED BY: Rohan Roper MD May 01, 2020 5:24:09 AM CIPHER EXPERT This report is intended for review by the ordering physician only, in accordance of law. If you recei ve this report in error, please call [facility] at [phone]. FINAL REPORT Exam: Head CT without contrast HISTORY: Status post subdural evacuation. COMPARISON: 04/30/2020 FINDINGS: Hemorrhage: Residual extra-axial hemorrhage is redemonstrated. There is postoperative change with air in the extra-axial space. Brain parenchyma: Cortical petersen-white matter differentiation. Previously noted right to left subfalci ne herniation has decreased, currently measuring 0.2. Stable chronic small vessel ischemic changes of the white matter. Ventricular system: Interval decrease of mass on the right lateral ventricle. Calvarium: Postoperative changes involving the right calvarium. Sinuses and mastoid air cells: Adequate aeration. IMPRESSION: 1. This report is in agreement with initial report by [facility]. 2. Right-sided craniotomy with expected postsurgical changes. Improved subdural hematoma. 3. Improved mass effect upon the ventricle. Reduced midline shift. Transcribed Date/Time: 05/01/2020 7:27 AM
[2020-05-01] MEDS: CEFAZOLIN 2 GM in Premix Bag 1 BAG IVPB SCH ×3 (08:34→22:06)
[2020-05-01] MEDS: Famotidine/PF 20 mg/2ml Vial SLOW IVP SCH (08:35)
[2020-05-01] MEDS: Senokot S 8.6-50 MG TAB PO SCH ×2 (08:36→21:41)
[2020-05-01] MEDS: Polyethylene Glycol 3350 17 GM Packet PO SCH (08:36)
--- NOTE | 2020-05-01 08:36 | PRG ---
DATE OF SERVICE: 05/01/2020 Ms. Aj Smyth is one day out from her craniotomy to evacuate an acute on chronic subdural hematoma. She is resting comfortably as I entered the room. She does not have many complaints this morning. Her head is sore and her right eye is swollen. Overnight, I do not see any fevers recorded. Blood pressures have been higher than our goal of less than 130. We will liberalize that to 140 today. Ms. Aj Smyth opens her eyes to voice, she answers a few questions. She drifts back to sleep during our conversation after a minute or so, but she wakes up again. She has a reasonably lucid conversation. She moves all her extremities. This morning's CAT scan looks quite good. There has been good evacuation of subdural hematoma. There is a tiny bit of likely epidural blood from the dura, but it is not causing much mass effect and it is much smaller than the previous subdural. This morning's sodium is 139, potassium is a bit too high at 5.2, and her creatinine is 1.86. My plan is for Ms. Aj Smyth to work with Physical Therapy and mobilize aggressively. The drain can be removed from the scalp either today or tomorrow. Antibiotics should be continued until one dose after drain removal. Medication should be dosed based on creatinine and her kidney function. Given her diabetes, her history of coronary artery disease with myocardial infarction, her chronic renal insufficiency, and her COPD, it might be worthwhile to make sure we are addressing all her medical needs with a consultation to the tab card press operator or the appropriate subspecialist. I will defer that decision to the Trauma Surgery Service. Eventually, I think she would benefit from inpatient rehabilitation. She remains neurologically stable through the day in an ICU bed. If needed, she can be moved to floor care this evening. Otherwise, tomorrow morning seems appropriate. This should not stop our mobilization of the patient with Physical Therapy. Job ID: [id number]
[2020-05-01] MEDS: Morphine 2 MG/ML VIAL SLOW IVP PRN ×3 (08:56→18:18)
[2020-05-01] MEDS: Ondansetron PF 4 MG/2 ML Vial IVP PRN ×2 (09:00→18:18)
[2020-05-01] MEDS ORDERED: Pantoprazole 40 MG VIAL IVP SCH (09:00)
[2020-05-01] MEDS: levETIRAcetam in NS 500 MG in Premix Bag 1 BAG IVPB SCH ×2 (09:18→21:41)
--- NOTE | 2020-05-01 12:31 | PRG ---
DATE OF SERVICE: 05/01/2020 The patient was seen on morning rounds of Dr. Delmar Kent. SUBJECTIVE: The patient is postop day #1, status post hemicraniectomy for subdural hematoma with drain. She has subsequently been extubated. She has a subdural drain in place that drained hematoma 120 mL. Neurosurgery is following. The patient's repeat CT does show improvement in resolution of the subdural hematoma. Her GCS is 13. She has remained hemodynamically stable, not requiring any drips. Her urine output is appropriate. Pain is under control. Of note, the patient was on high-dose gabapentin as outpatient. We will try to get hold of PCP if we are able to do this why the patient is on this dose for resuming the same. She is not currently taking p.o. and we are going to keep the same today. OBJECTIVE: VITAL SIGNS: Temperature is 97.8, blood pressure is 138/49, heart rate is 100, respiratory rate is 18, she is saturating 95% on room air at this time. HEENT: Normocephalic. The patient does have dressing noted to the head. She had a right hemicraniectomy and has a subdural drain in place. Right periorbital ecchymosis is appreciated. Her trachea is midline. She has primary repair of the wound. RESPIRATORY: Equal rise and fall of her breath sounds. Clear to auscultation in upper and lower lobes bilaterally. CARDIOVASCULAR: Tachycardic, regular rhythm. ABDOMEN: Soft. PELVIS: Stable. MUSCULOSKELETAL: She is able to move her extremities on command. NEUROLOGIC: The patient is able to move all of her extremities. Her GCS is 13 with 2-point reduction, one for slight confusion and she believes she is in a rehab hospital. Reduction is for eye opening is to verbal stimulation only. SKIN: Warm and dry. LABORATORY DATA: From today, a white blood cell count of 6.1, platelets are 159, hemoglobin and hematocrit is 8.5 and 27.4, platelets are 159. Sodium is 139, potassium is 5.2, chloride is 106, CO2 is 25, BUN is 38, creatinine is 1.86, glucose is 179, phosphorus is 5.6, and magnesium of 2.2. IMAGING: CT of the brain showing right hemicraniectomy. There is mild normocephaly and a small subdural hematoma. There could be subarachnoid hemorrhage, but has improved as well as her edema in midline shift has grossly improved postoperatively. ASSESSMENT: 1. Subdural hematoma, status post craniectomy and subdural drain. 2. Altered mental status secondary to #1 above. 3. History of chronic kidney disease. 4. History of heart failure. 5. Hyperkalemia, likely secondary to mannitol on top of the chronic kidney disease. 6. History of diabetes, chronic obstructive pulmonary disease. PLAN: 1. We will continue all supportive care. 2. Speech Therapy eval. 3. Withhold feeds at this time. 4. Continue neuro checks. 5. Subdural drain per Neurosurgery who is following. Appreciate recommendations. 6. We will hold DVT chemical prophylaxis secondary to recent brain bleed. 7. We will add DuoNebs for history of COPD. 8. Reduce fluids to 50 mL/h given n.p.o. 9. Monitor urine output. 10. We will repeat labs in the morning. 11. Update the bedside RN and coordinate care with Neurosurgery team to now discuss with today. 12. There are no family at bedside updates, answered all questions, bedside RN seen with Trauma Team. Job ID: [id number]
--- NOTE | 2020-05-01 12:41 | PQF ---
CLINICAL DOCUMENTATION CLARIFICATION FORM: Dear SHIRA Crane Date: 05.01.20 Please exercise your independent, professional judgment in responding to the clarification form. Clinical indicators are provided on the bottom of this form for your review. Please check appropriate box(es): [ ] Cerebral edema / Vasogenic edema [ X ] Compression of brain [ ] no radiology significance of mass effect [ ] Other diagnosis [ ] Unable to determine For continuity of documentation, please document condition throughout progress notes and discharge summary. Thank You. To be completed by CDI/Coding staff for physician review: CLINICAL INDICATORS - SIGNS / SYMPTOMS / LABS / RESULTS AND LOCATION IN EMR 04.30 H&P (Irene): * altered mental status * CT of brain: acute subdural hematoma w/ mass effect upon the right cerebrum w/ sulci effacement and rightto-left subfalcine herniation. 04.30 Op Note (Daren): *..mass effect with a right hemisphere midline shift and neurological decline RISK FACTORS / RESULTS AND LOCATION IN EMR 04.30 H&P (Irene): *s/p ground level fall with delayed presentation * Subdural hematoma with midline shift 05.01 PN (Daren): acute on chronic subdural hematoma TREATMENTS / RESULTS AND LOCATION IN EMR 04.30 Op Note (Daren): *Emergent craniotomy * Attempted jojo hole evacuation of subdural hematoma, conversion to full right frontotemporoparietal craniotomy, evacuation of subdural hematoma CDS Signature: Brittanie Mckeon RN, CCDS Phone #: [phone] [email or web address] This is a permanent part of the Medical Record [facility]
--- NOTE | 2020-05-01 12:50 | PQF ---
CLINICAL DOCUMENTATION CLARIFICATION FORM: Dear SHIRA Crane Date: 05-01-20 Please exercise your independent, professional judgment in responding to the clarification form. Clinical indicators are provided on the bottom of this form for your review. Please check appropriate box(es): [ ] Chronic Respiratory Failure d/t COPD [ ] COPD without Chronic Respiratory Failure [ ] Other diagnosis [ X] Unable to determine For continuity of documentation, please document condition throughout progress notes and discharge summary. Thank You. To be completed by CDI/Coding staff for physician review: CLINICAL INDICATORS - SIGNS / SYMPTOMS / LABS / RESULTS AND LOCATION IN MR 1.21 ED: *O2 sat 100% on 3LNC 1.21 H&P (Irene): * COPD with chronic O2 usage of 4L *RR 20; O2 buzz 100% on 3L via NC. RISK FACTORS / RESULTS AND LOCATION IN MR 1.21 H&P (Irene): *COPD *Chronic Systolic CHF TREATMENTS / RESULTS AND LOCATION IN MR 1.21 ED: *Oxygen 3LNC 1.21 H&P (Irene): * Current Medications: Albuterol; CDS Signature: Brittanie Mckeon RN, CCDS Phone #: [phone] [email or web address] This is a permanent part of the Medical Record [facility]
[2020-05-01] MEDS: Labetalol HCl 100 MG/20 ML VIAL SLOW IVP PRN ×3 (20:20→23:57)
[2020-05-02] MEDS: Morphine 2 MG/ML VIAL SLOW IVP PRN ×2 (01:06→11:01)
[2020-05-02 04:13] LABS: #Eosinphils 0.1 thou/uL (0.0-0.7); #Lymphocytes 1.5 thou/uL (1.20-3.40); #Monocytes 0.8 thou/uL (0.11-0.59); #Neutrophils 4.6 thou/uL (1.40-6.50); %Basophils 0.3 % (0.0-1.0); %Eosinophils 1.6 % (0.0-10.0); %Neutrophils 66.1 % (42.0-75.0); Hemoglobin 7.9 g/dL (12.0-16.0); Mean Corpuscular HGB CONC 31.3 g/dL (32.0-36.0); Mean Corpuscular Hemoglobin 28.7 pg (27.0-31.0); Mean Corpuscular Volume 91.8 fL (78.0-98.0); Mean Platelet Volume 7.9 fL (7.4-10.4); Platelet Count 147 thou/uL (130-400); RBC Distribution Width 15.1 % (11.5-14.5); Red Blood Cell (RBC) Count 2.76 mill/uL (4.20-5.40)
[2020-05-02 04:37] LABS: Anion Gap 11 mmol/L (10-20); BUN (Urea Nitrogen) 32 mg/dL (9.8-20.1); Calc. Creatinine Clearance 43 mL/min (70-130); Calcium 8.2 mg/dL (7.8-10.44); Carbon Dioxide 26 mmol/L (23-31); Chloride 107 mmol/L (98-107); Glucose 151 mg/dL (80-115); Magnesium 2.1 mg/dL (1.6-2.6); Phosphorus 4.2 mg/dL (2.3-4.7); Potassium 4.9 mmol/L (3.5-5.1); Sodium 139 mmol/L (136-145)
[2020-05-02] MEDS: Labetalol HCl 100 MG/20 ML VIAL SLOW IVP PRN ×8 (05:12→11:31)
[2020-05-02] MEDS: CEFAZOLIN 2 GM in Premix Bag 1 BAG IVPB SCH ×2 (06:01→14:00)
[2020-05-02] MEDS ORDERED: hydrALAZINE 20 MG/ML VIAL ONE ×2 (07:04→10:36)
[2020-05-02] MEDS: hydrALAZINE 20 MG/ML VIAL SLOW IVP PRN ×3 (07:06→10:39)
[2020-05-02] MEDS ORDERED: Ondansetron PF 4 MG/2 ML Vial ONE (08:01)
[2020-05-02] MEDS: Ondansetron PF 4 MG/2 ML Vial IVP PRN (08:06)
[2020-05-02] MEDS ORDERED: Promethazine HCl 25 MG/ML VIAL ONE (08:25)
--- NOTE | 2020-05-02 08:42 | PRG ---
DATE OF SERVICE: 05/02/2020 : Ms. Aj Smyth is 2 days out from craniotomy for evacuation of acute on chronic subdural hematoma. The acute component was quite large in causing mass effect and needed to be evacuated with craniotomy. The drain is still in her head. She has been moved out of the intermediate care unit back to the recovery room due to COVID admissions at the hospital. Overnight, I do not see any fevers recorded. Blood pressures have been between 140s and 160s. Her sodium is 139. Ms. Aj Smyth is awake. She is alert. She is conversing. She is moving both sides, the left might be a little slower than the right, but she is much improved from before surgery. The plan for Ms. Aj Smyth is to advance her diet well. She is awake. She is completely awake this morning. She sits vertically in a bedside chair. I believe she can attempt to eat. She is going to need to get out of bed and move around with physical therapy or her recovery will be prolonged. If we get her moving now, we will aid in her recovery process. We are going to remove the drain today. Antibiotics can be stopped, one dose after the drain is removed. I hope she will be safe enough to discharge home soon, if not inpatient rehabilitation is a consideration. Aggressive physical therapy needs to start right away. Job ID: [id number] [facility]
[2020-05-02] MEDS: levETIRAcetam in NS 500 MG in Premix Bag 1 BAG IVPB SCH ×2 (09:04→20:56)
[2020-05-02] MEDS: Famotidine/PF 20 mg/2ml Vial SLOW IVP SCH (09:35)
[2020-05-02] MEDS ORDERED: Sodium Chloride For Inhalation 0.9% 3 ML NEB ONE (09:56)
[2020-05-02] MEDS ORDERED: Morphine 2 MG/ML VIAL ONE (10:56)
[2020-05-02] MEDS ORDERED: Labetalol HCl 100 MG/20 ML VIAL ONE (11:29)
--- NOTE | 2020-05-02 12:11 | PRG ---
DATE OF SERVICE: SUBJECTIVE: The patient was seen on morning rounds. She is being boarded in the PACU . Neurosurgery has seen the patient today states she has much improved. They have actually removed her drain. States she was awake, oriented and alert. Her blood pressure has been high. I have requested that the nursing use p.r.n. medications to control her blood pressure per the recommendations of Neurosurgery team. However, on my bedside exam, the patient is more altered, sleepy, however, she has been given 12.5 of Phenergan. On repeat exam, she will wake up and follow some simple commands, but is not motivated to do very much. She has remained hemodynamically stable otherwise. PHYSICAL EXAMINATION: VITAL SIGNS: Temperature is 97.7, blood pressure 156/72, heart rate is 88, respiratory rate is 20. She is 94% on nasal cannula. GENERAL: A 69-year-old female, postop extubated, is somewhat sedate, likely from medication and traumatic brain injury. HEENT: She has right craniectomy. She has lesley in place. She has periorbital ecchymosis about the right side of her face and a laceration is primarily repaired. RESPIRATORY: Equal rise and fall. Bilateral breath sounds clear to auscultation in upper and lower lobes bilaterally. CARDIOVASCULAR: Regular rate and rhythm. ABDOMEN: Large, soft and nontender. No masses or rigidity. PELVIS: Stable. MUSCULOSKELETAL: She moves all extremities. There is no edema. She has strong pulses. NEURO: The patient is alert to painful stimuli. She will follow some simple commands and she is confused. SKIN: Warm and dry. LABORATORY DATA: From today, a white blood cell count of 7.0, platelets 147, hemoglobin and hematocrit are 7.9 and 25.4 respectively. Sodium is 139, potassium 4.9, chloride is 107, CO2 is 26, BUN is 32, creatinine is 1.86, glucose is 151, phos is 4.2, and Mag is 2.1. ASSESSMENT AND PLAN: 1. Fall with subdural hematoma status post evacuation. 2. Acute traumatic brain injury. 3. Altered mental status , improving. 4. History of chronic kidney disease, heart failure. 5. Hyperkalemia that has resolved. 6. Diabetes. 7. Chronic obstructive pulmonary disease. PLAN: 1. We will continue supportive care. 2. Suspend morphine and promethazine. 3. We will place a Dobhoff tube if the patient is unable to wake up to take orals or an NG tube to at least ensure medications for blood pressure control. 4. Transfer to the surgery crockett. 5. Once taking orals, we will stop fluids. 6. Continue DuoNebs. 7. Neurosurgery is following. Appreciate recommendations and their assistance. 8. There are no family at the bedside to update. 9. Coordinator with the bedside RN. We will continue to follow along. Job ID: [id number]
[2020-05-02] MEDS: Polyethylene Glycol 3350 17 GM Packet PO SCH (12:36)
[2020-05-02] MEDS: Senokot S 8.6-50 MG TAB PO SCH ×2 (12:36→20:54)
[2020-05-02] MEDS ORDERED: Amlodipine 10 MG TAB PO SCH (14:00)
[2020-05-02] MEDS ORDERED: Metoprolol Tartrate 25 MG TAB PO SCH (14:00)
[2020-05-02] MEDS: Sodium Chloride 0.9% 1,000 ML IV SCH (14:00)
[2020-05-02] MEDS: Acetaminophen 325 MG TAB PO PRN ×2 (14:01→18:20)
[2020-05-02] MEDS: Metoprolol Tartrate 25 MG TAB PO SCH (20:55)
[2020-05-03] MEDS: Acetaminophen 325 MG TAB PO PRN (00:22)
[2020-05-03] MEDS: Labetalol HCl 100 MG/20 ML VIAL SLOW IVP PRN ×9 (01:34→23:10)
[2020-05-03] MEDS: hydrALAZINE 20 MG/ML VIAL SLOW IVP PRN ×2 (05:19→12:38)
[2020-05-03] MEDS: Sodium Chloride 0.9% 1,000 ML IV SCH (05:28)
[2020-05-03] MEDS: levETIRAcetam in NS 500 MG in Premix Bag 1 BAG IVPB SCH (07:58)
[2020-05-03] MEDS: Famotidine/PF 20 mg/2ml Vial SLOW IVP SCH (07:58)
--- NOTE | 2020-05-03 08:13 | PRG ---
DATE OF SERVICE: 05/03/2020 I saw Ms. Aj Smyth in her hospital room this morning. She seemed to be resting comfortably. Keppra was being administered IV as I was coming into the room. I have gotten no reports of any events overnight. Among the electronically recorded vital signs, there are no fevers. I see blood pressures in the 150s to 160s. On examination, Ms. Aj Smyth wakes to loud voice. She moves all 4 extremities purposefully. She drifts back to sleep fairly quickly more so than yesterday. I do not see any new motor or sensory deficits, but her level of alertness is a little bit down. There are no labs to review this morning. Ms. Aj Smyth is slightly more drowsy than yesterday. If she does wake significantly during the daylight hours, we may get a Keppra level. She will need a new chemistry panel. A CT may be necessary. However, if she wakes and communicates with nursing and participates in therapy, then we do not have to get a new scan. We will see what happens in the next few hours. I am not terribly worried given how good the CT scan looked postop. Job ID: [id number] MTDD
[2020-05-03] MEDS: Amlodipine 10 MG TAB PO SCH (08:48)
[2020-05-03] MEDS: Metoprolol Tartrate 25 MG TAB PO SCH (08:48)
[2020-05-03] MEDS: Senokot S 8.6-50 MG TAB PO SCH ×2 (08:48→20:04)
[2020-05-03] MEDS: Polyethylene Glycol 3350 17 GM Packet PO SCH (08:48)
[2020-05-03 09:03] LABS: #Lymphocytes 1.2 thou/uL (1.20-3.40); #Monocytes 0.5 thou/uL (0.11-0.59); #Neutrophils 6.5 thou/uL (1.40-6.50); %Basophils 0.4 % (0.0-1.0); %Eosinophils 0.3 % (0.0-10.0); %Lymphocytes 14.9 % (21.0-51.0); %Monocytes 6.3 % (0.0-10.0); %Neutrophils 78.1 % (42.0-75.0); Hemoglobin 8.6 g/dL (12.0-16.0); Mean Corpuscular HGB CONC 32.2 g/dL (32.0-36.0); Mean Corpuscular Volume 90.2 fL (78.0-98.0); Mean Platelet Volume 7.9 fL (7.4-10.4); Platelet Count 153 thou/uL (130-400); RBC Distribution Width 14.8 % (11.5-14.5); Red Blood Cell (RBC) Count 2.95 mill/uL (4.20-5.40); White Blood Cell (WBC) Count 8.3 thou/uL (4.8-10.8)
[2020-05-03 09:47] LABS: Anion Gap 16 mmol/L (10-20); BUN (Urea Nitrogen) 28 mg/dL (9.8-20.1); Calc. Creatinine Clearance 55 mL/min (70-130); Calcium 8.7 mg/dL (7.8-10.44); Carbon Dioxide 22 mmol/L (23-31); Chloride 103 mmol/L (98-107); Glucose 185 mg/dL (80-115); Magnesium 1.8 mg/dL (1.6-2.6); Phosphorus 3.3 mg/dL (2.3-4.7); Potassium 4.4 mmol/L (3.5-5.1); Sodium 137 mmol/L (136-145)
[2020-05-03] MEDS: Metoprolol Tartrate 5 MG/5 ML VIAL IVP SCH ×2 (13:26→20:03)
--- NOTE | 2020-05-03 15:11 | CT ---
CT BRAIN: Date: 04-13-2020 PROVIDED CLINICAL HISTORY: Altered mental status, subdural hematoma. FINDINGS: Comparison 05-01-2020. Right cerebral convexity subdural hematoma is redemonstrated, with more blood products and less gas p resent than on prior, but without significant change in overall volume. There is slight shift of the midline structures from left to right. There is mild interval prominence of the temporal horn of the left lateral ventricle. The basilar cisterns appear patent. Craniotomy changes on the right are again seen. The extracranial soft tissues and osseous structures demonstrate an otherwise unremarkable CT appearance. IMPRESSION: Right cerebral convexity subdural hematoma is redemonstrated as described. POS: [place]
--- NOTE | 2020-05-03 15:24 | PDOC.BPN ---
- Brief Progress Note Encounter Date: 05/03/20 Encounter Time: 15:20 CT head complete with redistribution of subdural hematoma. 2 mm midline shift. D/w Neurosurgery Toussant via phone and he will look at the scans and make a plan. Appreciate assistance. HOB 30 degrees NPO now Neuro check q 4 (and increase per neurosurgery rec's) will follow, if worsening will transfer to critical care unit. Mariel Avalos
[2020-05-03 16:07] LABS: Actual Bicarbonate (HCO3v) 24 mEq/L (22-28); Base Excess -0.3 mEq/L (-2.0 to +3.0); Calcium, Ionized (venous) 1.13 mmol/L (1.16-1.32); Chloride (VBG) 103 mmol/L (98-106); Hemoglobin (Hb) 9.8 g/dL (11.7-16.1); Sodium 137.3 mmol/L (133-146); pH (venous) 7.42 (7.32-7.43)
--- NOTE | 2020-05-03 16:17 | PRG ---
DATE OF SERVICE: 05/03/2020 The PA in the Trauma Service noticed Ms. Aj Smyth was not responding as she did yesterday. He ordered a CT head. He called me with concern about the read on the CT head and some reaccumulation of subdural blood products. I have reviewed the CT head. There is extra-axial hemorrhage there. It could be above or below the dura, given the fact that we opened the dura widely, and postoperative reaccumulation of some blood products is to be expected. This is markedly better than it was before surgery. It is a bit worse than it was the day after surgery, owing to the inability to control blood pressure. The first night after surgery we asked for the blood pressure to be 130, the second day at 140, and since then at 150, readings have been in the 160s-170s. Blood pressure needs to be better controlled. She is also slightly coagulopathic, given her renal failure. No extra blood thinning medications need to be administered. Pepcid should be changed to Protonix, given its anti-platelet effect. I do not believe she would benefit from evacuation of this small amount of subdural hematoma. She will need to be treated conservatively. UTI, fluid/sodium hemostasis, and metabolic derangements can be evaluated for causative roles. Job ID: [id number] [facility]
[2020-05-03] MEDS ORDERED: hydrALAZINE 20 MG/ML VIAL SLOW IVP PRN (16:29)
[2020-05-04] MEDS ORDERED: Acetaminophen 650 MG Suppository PR PRN (02:22)
[2020-05-04] MEDS: Sodium Chloride 0.9% 1,000 ML IV SCH (02:26)
[2020-05-04] MEDS: Metoprolol Tartrate 5 MG/5 ML VIAL IVP SCH ×4 (02:26→20:02)
[2020-05-04] MEDS: Labetalol HCl 100 MG/20 ML VIAL SLOW IVP PRN ×5 (03:20→17:28)
--- NOTE | 2020-05-04 06:03 | PRG ---
DATE OF SERVICE: 05/03/2020 SUBJECTIVE: Ms. Smyth is hospital day #3, postop day #3, status post hemicraniectomy with flap replacement, subdural drain from SD[facility]. Subdural drain was removed yesterday. Reportedly improved mental status. She did have some nausea yesterday. She was talking. Her GCS on 05/02/2020 was 13, 1 for confusion, 1 for localizing pain only. Today, GCS is 12 as the patient has incomprehensible sounds. Renal function actually improved. Glucose remained stable. Otherwise, the patient did get agitated overnight. Yesterday did place the NG tube to get the oral medicines down her as she is unable to take p.o. This took some effort by the nursing staff. We were able to get some p.o. medications down; however, the patient overnight pulled her NG tube out. OBJECTIVE: VITAL SIGNS: Temperature is 99.3, blood pressure is 152/67, heart rate is 92, respiratory rate is 16. She is on 3 L oxygen nasal cannula. GENERAL: A 69-year-old, ill-appearing female, sitting in bed, moans occasionally, tracks providers in the room. HEENT: She has trauma about the head. Periorbital ecchymosis to the right. She has . She has surgical incisions noted to the right side of the skull. Trachea is midline. RESPIRATORY: Equal, rise, and fall. Bilateral breath sounds are clear. CARDIOVASCULAR: Regular rate. She has strong pulses. ABDOMEN: Soft, large, protuberant, but no masses, guarding, or distention. PELVIS: Stable. MUSCULOSKELETAL: No deformity. NEUROLOGIC: The patient's GCS is 12. She is more lethargic today than she was in the previous day. PSYCH: Deferred. DIAGNOSTIC CRITERIA: Today, laboratory data; sodium is 137, potassium 4.4, chloride is 103, CO2 is 22, BUN is 28, creatinine is 1.47, glucose 185, phosphorous is 3.3, and magnesium 1.8. White blood cell count is 8.3, platelets are 153, hemoglobin and hematocrit 8.6 and 29.6 respectively. ASSESSMENT: 1. Subdural hematoma, status post hemicraniectomy and subdural drain. 2. Altered mental status, likely secondary to subdural hematoma status post hemicraniectomy and subdural drain -- appears to be worsening. 3. Fall. 4. History of chronic kidney disease, heart failure. 5. Hyperkalemia, resolved. 6. Diabetes, currently stable. 7. History of chronic obstructive pulmonary disease. PLAN: 1. We will continue supportive care. 2. We will obtain VBG to make sure patient does not have hypercarbic narcosis; however, I doubt the same. She does not appear to be terribly obstructing, but she does have a large habitus. 3. We will obtain CT brain now without contrast, may very well need MRI. 4. Neurosurgery is continuing to follow. Appreciate their recommendations and assistance. 5. Continue with antihypertensives. We will schedule metoprolol IV for now as the patient is not taking p.o. 6. Monitor fluid output. 7. Continue DuoNebs. 8. Continue to hold any sedating medications. 9. I have updated the patient's bedside RN. There is no family to update. Job ID: [id number] [facility]
--- NOTE | 2020-05-04 07:09 | PRG ---
DATE OF SERVICE: I saw Ms. Aj Smyth in our hospital room this morning. Yesterday, she was drowsier than she has been during her hospitalization previously. The Trauma Surgery Service sent her for a CT imaging of the brain, which showed some accumulation of extra-axial blood at the operative site, which is much smaller and with much less mass effect than the original hematoma. The local mass effect was improved compared to before surgery. Ms. Aj Smyth has history of chronic renal insufficiency and on admission had 2+ bacteria in her urine. This has not been rechecked. Blood pressures have been a little bit difficult to control since surgery. She is on Pepcid rather than Protonix. This morning, Ms. Aj Smyth is still a bit drowsy. She is resting as I entered the room. When I say her 1st name, she moans a bit. When I stimulate her over the spine, she moves all 4 extremities purposefully. She repositioned herself. She moves her head. She opens her eyes. She tells me to stop. She drifts back to sleep. CT findings are noted above. I do not see any urinalysis or urine culture done. The Pepcid is still running rather than being switched to Protonix to preserve platelet function. Platelet function is already slightly diminished due to her renal disease. I do not see any notes from Internal Medicine or Nephrology. I am going to stop the Pepcid and switch her to Protonix to preserve platelet function. I am going to get a urinalysis. I am going to order urine culture. To me, Ms. Aj Smyth feels warm, although no fevers have been recorded. Blood pressure is still difficult to control and we may need to add a longer- acting oral agent. Unfortunately Internal Medicine and Nephrology have yet to see the patient. We will continue to assist with management. Job ID: [id number] [facility]
[2020-05-04] MEDS ORDERED: Sodium Chloride 0.9% (PF) 10 ML VIAL FS PRN (07:15)
[2020-05-04 07:27] LABS: Anion Gap 17 mmol/L (10-20); BUN (Urea Nitrogen) 27 mg/dL (9.8-20.1); Calc. Creatinine Clearance 56 mL/min (70-130); Calcium 8.7 mg/dL (7.8-10.44); Carbon Dioxide 24 mmol/L (23-31); Chloride 101 mmol/L (98-107); Glucose 176 mg/dL (80-115); Magnesium 1.8 mg/dL (1.6-2.6); Potassium 3.9 mmol/L (3.5-5.1); Sodium 138 mmol/L (136-145)
[2020-05-04] MEDS: Senokot S 8.6-50 MG TAB PO SCH ×2 (08:18→21:50)
[2020-05-04] MEDS: Amlodipine 10 MG TAB PO SCH (08:18)
[2020-05-04] MEDS: Polyethylene Glycol 3350 17 GM Packet PO SCH (08:18)
[2020-05-04] MEDS: Pantoprazole 40 MG VIAL IVP SCH ×2 (09:37→20:03)
[2020-05-04] MEDS ORDERED: Amantadine HCl 100 mg Capsule PO SCH (11:00)
--- NOTE | 2020-05-04 12:08 | RAD ---
EXAM: XR Abdomen 1 View/KUB PROVIDED CLINICAL HISTORY: Dobbhoff feeding tube placement. COMPARISON: None FINDINGS: Dobbhoff feeding tube is noted in place with the tube extending into the stomach but again ascends oliva periorly with the tip overlying the distal esophagus. Visualized bowel gas pattern is nonspecific. Vascular calcifications are seen in the abdominal aorta. There is a calcification adjacent to the rig ht aspect of the L3 vertebral body. CT abdomen in 2018 demonstrates a calcification in the anterior soft tissues which may potentially account for this finding, but this difficult to definitely determi ne based on this exam. Elevation of the right hemidiaphragm is present. Parenchymal densities are seen at the right lung base which may represent atelectasis. Degenerative changes are seen in the spi ne IMPRESSION: 1. Dobbhoff feeding tube noted in place which is coiled overlying the left upper quadrant, but the tu be ascends superiorly, and the tip of the Dobbhoff feeding tube overlies the distal esophagus. 2. Additional findings as above.
[2020-05-04] MEDS: HumaLOG 300 UNITS/3 ML VIAL SC PRN (13:37)
--- NOTE | 2020-05-04 14:04 | RAD ---
Exam: 1 view abdomen HISTORY: Dobbhoff feeding tube adjustment FINDINGS: Dobbhoff feeding tube coils upon itself such that the distal tip is presumed to be in the e sophagus. Distal tip is not included on this exam. Repositioning is recommended. IMPRESSION: Repositioning of the Dobbhoff feeding tube is recommended. Results of study conveyed to Eduardo Bonilla 05/04/2020 at 2:01 PM Code CR
[2020-05-04 18:05] LABS: Bacteria/HPF None Seen HPF (None Seen); Bilirubin Negative (Negative); Blood, Urine 1+ (Negative); Clarity Clear (Clear); Glucose, Urine (Dipstick) 50 mg/dL (Negative); Ketone, Urine 10 mg/dL (Negative); Leukocyte 75 Leu/uL (Negative); Nitrite Negative (Negative); Protein, Urine (Dipstick) 300 mg/dL (Neg-Trace); Specific Gravity, Urine 1.019 (1.002-1.036); Squamous Epithelial 0-3 HPF (0-3); Urobilinogen Normal mg/dL (Less than 2); WBC/HPF 21-50 HPF (0-3); pH, Urine 6.5 (5.0-9.0)
--- NOTE | 2020-05-04 20:50 | RAD ---
SUPINE ABDOMEN: History: Dobbhoff placement FINDINGS: Dobbhoff type NG tube passes through the EG junction. Tip is coiled in the upper gastric fundus just beyond the EG junction. Visualized bowel gas pattern unremarkable. There is a calcification along the right abdomen measuring approximately 1.2 cm which may be renal in origin. IMPRESSION: As above. POS: AGW
--- NOTE | 2020-05-05 00:32 | PRG ---
DATE OF SERVICE: HISTORY OF PRESENT ILLNESS: The patient is currently on the surgical floor. She is status post a ground level fall with delayed presentation, in which she sustained a subdural hematoma. She has subsequently underwent craniotomy by Dr. Mercedes. She remains on a GCS of 11 to 12. She is postop day 3 from her surgery, specifically attempted jojo hole evacuation of subdural hematoma, conversion to full right frontotemporoparietal craniotomy with evacuation of subdural hematoma. The patient is currently awaiting placement. It does not appear that she has worked very much with physical therapy or occupational therapy. We will address this again in the morning. Per Dr. Mercedes's note, they will continue supportive care. The urinalysis results did show on admission 2+ bacteria, but they did not show any growth on her microbiology. We are also continuing to work on her blood pressure control. Regarding her urinalysis, there was a repeat urinalysis done today that again did not show any bacteria. There is only trace LE and no nitrite. Today, the patient failed her swallow study, so a Dobhoff tube was placed. This may assist in adjusting her blood pressure medicines and transitioning her to a p.o. route. PHYSICAL EXAMINATION: VITAL SIGNS: Temperature is 98.6, heart rate 94, blood pressure 162/66, respirations 16, and oxygen saturation is 100% on 3 L via nasal cannula. GENERAL: The patient is resting comfortably in bed. Her Jana Coma Scale is 12 with E3, V4, M5. This is consistent with my earlier exams of her. HEENT: Her scalp wound is clean, dry, and intact. Respirations are nonlabored and clear bilaterally. HEART: Regular rate and rhythm. ABDOMEN: Soft, nontender with active bowel sounds. EXTREMITIES: Neurovascularly intact x4. When stimulated, the patient does move all 4 extremities. LABORATORY FINDINGS: Sodium 138, potassium 3.9, chloride 101, CO2 of 24, BUN 27, creatinine 1.43, glucose 176, magnesium 1.8, phosphorus 3.0. RADIOGRAPHS: This morning, abdominal x-ray, initial Dobhoff placement showed the Dobhoff tube had curled back on itself and was in the esophagus. Her Dobhoff was removed and the new one was placed that showed the tip in the stomach. ASSESSMENT AND PLAN: 1. Status post hemicraniotomy and dural drains, status post ground level fall with delayed presentation resulting in subdural hematoma. 2. Altered mental status secondary to above. 3. History of chronic kidney disease, stable. 4. Diabetes, stable. 5. History of chronic obstructive pulmonary disease and heart failure, stable. PLAN: Plan will be to begin with tube feeds today. Reconsult Physical and Occupational therapy. Pain control and adjust blood pressure medicines. We will also continue to have speech work with the patient and await final placement determination. Job ID: [id number]
[2020-05-05] MEDS: Metoprolol Tartrate 5 MG/5 ML VIAL IVP SCH (01:17)
[2020-05-05] MEDS: Sodium Chloride 0.9% 1,000 ML IV SCH (02:04)
[2020-05-05] MEDS: Labetalol HCl 100 MG/20 ML VIAL SLOW IVP PRN ×2 (03:51→05:49)
[2020-05-05] MEDS: HumaLOG 300 UNITS/3 ML VIAL SC PRN ×3 (05:49→18:46)
[2020-05-05 06:41] LABS: #Basophils 0.1 thou/uL (0.0-0.2); #Lymphocytes 1.8 thou/uL (1.20-3.40); #Monocytes 0.9 thou/uL (0.11-0.59); #Neutrophils 7.2 thou/uL (1.40-6.50); %Basophils 0.6 % (0.0-1.0); %Eosinophils 0.5 % (0.0-10.0); %Lymphocytes 18.1 % (21.0-51.0); %Neutrophils 71.8 % (42.0-75.0); Hemoglobin 10.3 g/dL (12.0-16.0); Mean Corpuscular HGB CONC 32.5 g/dL (32.0-36.0); Mean Corpuscular Hemoglobin 28.9 pg (27.0-31.0); Mean Corpuscular Volume 89.1 fL (78.0-98.0); Mean Platelet Volume 8.1 fL (7.4-10.4); Platelet Count 203 thou/uL (130-400); Red Blood Cell (RBC) Count 3.56 mill/uL (4.20-5.40)
[2020-05-05 07:06] LABS: Anion Gap 16 mmol/L (10-20); BUN (Urea Nitrogen) 31 mg/dL (9.8-20.1); Calc. Creatinine Clearance 64 mL/min (70-130); Calcium 8.9 mg/dL (7.8-10.44); Carbon Dioxide 23 mmol/L (23-31); Chloride 102 mmol/L (98-107); Glucose 193 mg/dL (80-115); Potassium 3.5 mmol/L (3.5-5.1); Sodium 137 mmol/L (136-145)
--- NOTE | 2020-05-05 07:13 | PRG ---
DATE OF SERVICE: 05/05/2020 I saw Ms. Aj Smyth in our hospital room this morning. She is resting comfortably. No events were reported overnight. Among the electronically recorded vital signs, I do not see any fevers. Blood pressures have been anywhere between 150 and 173. On examination, Ms. Aj Smyth responds when I call her first name from across the room. She groans a bit and drifts back to sleep. When I ask her to squeeze my hand, she does so quite rapidly on the right side. She moves all 4 extremities and they are purposeful but getting her left upper extremity to move to command is much slower. She says a word this morning and makes noises. She opens her eyes with enough stimulation. Overall, she is slightly better than yesterday. Her white blood cell count is up to 10.0. Sodium yesterday was 138, it is pending this morning. Urinalysis showed some blood, but no bacteria were seen. There were 2+ bacteria in her original urinalysis at [facility] before her transfer here for her care. Cultures are pending. Ancef is stopped. Ms. Aj Smyth is slightly better than yesterday. She did have some reaccumulation of extra-axial blood after her surgery in a delayed fashion, but with minimal mass effect and much better than it was before her operation. She had a decrease in her level of alertness, but is slowly improving. It is unclear of the etiology, whether it is metabolic ictal or a side effect of medications is unclear. She clearly has some renal insufficiency. Job ID: [id number]
[2020-05-05] MEDS: Pantoprazole 40 MG VIAL IVP SCH (07:58)
[2020-05-05] MEDS: Polyethylene Glycol 3350 17 GM Packet PO SCH ×2 (07:58→14:52)
[2020-05-05] MEDS: Amantadine HCl 100 mg Capsule PO SCH ×2 (07:59→14:52)
[2020-05-05] MEDS: Amlodipine 10 MG TAB PO SCH (07:59)
[2020-05-05] MEDS: Acetaminophen 325 MG TAB PO PRN ×4 (08:14→23:37)
[2020-05-05] MEDS ORDERED: Non-Formulary Item 1 EACH (Diltiazem Hcl [Diltiazem Hcl] 120 MG Tablet) PO SCH (09:00)
--- NOTE | 2020-05-05 12:14 | RAD ---
KUB: 05/05/2020 COMPARISON: 05/04/2020 HISTORY: Evaluate Dobbhoff tube placement FINDINGS: Bilateral hip arthroplasties are present. There is a Dobbhoff tube present extending into t he epigastric region, distal tip overlying the midline L1 vertebral body, likely within the gastric body. The rectum is expanded and filled with dense stool suggesting fecal impaction. IMPRESSION: KUB as above
[2020-05-05] MEDS: hydrALAZINE 20 MG/ML VIAL SLOW IVP PRN (14:03)
[2020-05-05] MEDS: Senokot S 8.6-50 MG TAB PO SCH ×2 (14:53→20:30)
--- NOTE | 2020-05-05 16:25 | PDOC.GSPN ---
Surgery Progress Note: Subj - Subjective Patient reports: no new complaints, feels better, pain well controlled Narrative: 69 white female with h/o CAD, CHF, RA, T2DM, CKD, COPD seen on rounds today for f/u s/p L craniotomy on 30 Apr 2020 for evacuation of ekash-le-hobnmuz subdural hematoma r/t 3 fall she suffered last week (x2 on Apr and x1 on Apr). Would like to get onto the commode, but otherwise expresses no new concerns. Nursing staff reports Dobhoff is clogged. Surgery Progress Note: Obj - Vital signs Vital signs: Vital Signs - Most Recent Temp Pulse Resp BP Pulse Ox 98.5 F 110 H 16 126/73 95 05/05/20 15:40 05/05/20 15:40 05/05/20 15:40 05/05/20 15:40 05/05/20 15:40 - Physical Exam General: no distress, well developed, well nourished, obese ENT: normal nares Neck: trachea midline Cardiovascular: regular rate and rhythm Respiratory: clear to auscultation, normal expansion, normal respiratory effort Abdomen: soft, non tender, nondistended, positive bowel sounds Musculoskeletal: other (Up in neuro chair) Psychiatric: oriented to person, oriented to place, other (Oriented to person & place, but not time. GCS = 14 (M6; V4; E4). Cognition/alertness/verbal ability significantly improved vs exam of 04 May 2020 at which time she was only able to moan loudly & not actively participate in a conversation.) Wound: healing well, other (Scalp incisions well-approximated with lesley & without s/sx infection.) Additional exam: Pupils PERRL bilat. Surgery Progress Note: Results - Labs Result Diagrams: 05/06/20 05:02 05/06/20 05:02 Lab results: Laboratory Results - last 12 hr 05/05/20 05/05/20 05/05/20 05:46 06:29 06:29 WBC 10.0 RBC 3.56 L Hgb 10.3 L Hct 31.7 L MCV 89.1 MCH 28.9 MCHC 32.5 RDW 15.0 H Plt Count 203 MPV 8.1 Neutrophils % 71.8 Lymphocytes % 18.1 L Monocytes % 9.0 Eosinophils % 0.5 Basophils % 0.6 Neutrophils # 7.2 H Lymphocytes # 1.8 Monocytes # 0.9 H Eosinophils # 0.0 Basophils # 0.1 Sodium 137 Potassium 3.5 Chloride 102 Carbon Dioxide 23 Anion Gap 16 BUN 31 H Creatinine 1.26 H Estimated GFR (MDRD) 42 Glucose 193 H POC Glucose 162 H Calcium 8.9 05/05/20 12:22 WBC RBC Hgb Hct MCV MCH MCHC RDW Plt Count MPV Neutrophils % Lymphocytes % Monocytes % Eosinophils % Basophils % Neutrophils # Lymphocytes # Monocytes # Eosinophils # Basophils # Sodium Potassium Chloride Carbon Dioxide Anion Gap BUN Creatinine Estimated GFR (MDRD) Glucose POC Glucose 222 H Calcium Surgery Progress Note: A/P - Problem (1) Status post craniotomy Current Visit: Yes Status: Acute (2) Subdural hematoma Current Visit: Yes Code(s): S06.5X9A - TRAUM SUBDR HEM W LOC OF UNSP DURATION, INIT Status: Acute (3) CKD (chronic kidney disease), stage IV Current Visit: No Code(s): N18.4 - CHRONIC KIDNEY DISEASE, STAGE 4 (SEVERE) Status: Chronic (4) COPD (chronic obstructive pulmonary disease) Current Visit: No Status: Chronic (5) DM2 (diabetes mellitus, type 2) Current Visit: No Status: Chronic (6) HTN (hypertension) Current Visit: No Code(s): I10 - ESSENTIAL (PRIMARY) HYPERTENSION Status: Chronic - Plan Plan: Significant improvement today vs yesterday's exam. Awake & able to have meaningful interaction. Urine cx from yesterday shows no growth at 24 hrs. Will repeat BMP, CBC, mag/phos in am. Re-start Wellbutrin XL, Elavil, Metoprolol. Prior to inpt stay, pt lived with her son & uidkeupi-uy-cav (DIL is primary caregiver). Anticipate SNF placement after this inpt stay; case management coordinating this with son & zxlhlnke-ey-upg. Nursing staff advised to flush Dobhoff & if unable to clear occlusion, to replace with new Dobhoff. Anticipate f/u on rounds in am. Addendum - Attending - Attending Attestation Date/Time: 05/06/20 [id number] I personally evaluated the patient and discussed the management with Dr. [] I agree with the History, Examination, Assessment and Plan documented above with any addition or exceptions noted below.
[2020-05-05] MEDS: Ondansetron PF 4 MG/2 ML Vial IVP PRN (18:46)
[2020-05-05] MEDS: Budesonide 0.5 MG/2 ML NEB NEB SCH (19:00)
[2020-05-05] MEDS: Arformoterol 15 MCG/2 ML NEB NEB SCH (19:00)
[2020-05-05] MEDS: Amitriptyline HCl 25 MG TAB PO SCH (20:29)
[2020-05-05] MEDS: Metoprolol Tartrate 25 MG TAB PO SCH (20:30)
[2020-05-05] MEDS: Atorvastatin Calcium 10 MG TAB PO SCH (20:30)
--- NOTE | 2020-05-05 22:39 | PDOC.BPN ---
- Brief Progress Note Encounter Date: 05/05/20 Encounter Time: 21:00 Patient was seen during evening rounds on the surgical floor resting comfortably in no distress. No issues reported by the patients nurse. Vital signs are stable and patient is afebrile. Plan of care is unchanged. So far urine culture is showing no growth at 24 hours.
[2020-05-06] MEDS: hydrALAZINE 20 MG/ML VIAL SLOW IVP PRN ×2 (04:27→10:14)
[2020-05-06 05:23] LABS: #Eosinphils 0.1 thou/uL (0.0-0.7); #Lymphocytes 1.6 thou/uL (1.20-3.40); #Monocytes 0.8 thou/uL (0.11-0.59); #Neutrophils 6.1 thou/uL (1.40-6.50); %Basophils 0.2 % (0.0-1.0); %Eosinophils 1.4 % (0.0-10.0); %Lymphocytes 18.2 % (21.0-51.0); %Monocytes 9.6 % (0.0-10.0); %Neutrophils 70.6 % (42.0-75.0); Hemoglobin 10.8 g/dL (12.0-16.0); Mean Corpuscular HGB CONC 31.4 g/dL (32.0-36.0); Mean Corpuscular Hemoglobin 28.3 pg (27.0-31.0); Mean Corpuscular Volume 90.2 fL (78.0-98.0); Mean Platelet Volume 8.2 fL (7.4-10.4); Platelet Count 215 thou/uL (130-400); RBC Distribution Width 15.1 % (11.5-14.5); Red Blood Cell (RBC) Count 3.83 mill/uL (4.20-5.40); White Blood Cell (WBC) Count 8.6 thou/uL (4.8-10.8)
[2020-05-06] MEDS: HumaLOG 300 UNITS/3 ML VIAL SC PRN ×3 (05:39→17:38)
[2020-05-06 05:48] LABS: Anion Gap 16 mmol/L (10-20); BUN (Urea Nitrogen) 39 mg/dL (9.8-20.1); Calc. Creatinine Clearance 66 mL/min (70-130); Calcium 8.9 mg/dL (7.8-10.44); Carbon Dioxide 23 mmol/L (23-31); Chloride 102 mmol/L (98-107); Glucose 244 mg/dL (80-115); Phosphorus 3.2 mg/dL (2.3-4.7); Potassium 3.5 mmol/L (3.5-5.1); Sodium 137 mmol/L (136-145)
[2020-05-06] MEDS: Budesonide 0.5 MG/2 ML NEB NEB SCH ×2 (07:16→19:05)
[2020-05-06] MEDS: Arformoterol 15 MCG/2 ML NEB NEB SCH ×2 (07:16→19:05)
[2020-05-06] MEDS ORDERED: Potassium Phosphate 15 MMOL in Sodium Chloride 0.9% 250 ML 250 ML IVPB SCH (08:00)
[2020-05-06] MEDS: DULoxetine 60 MG CAP PO SCH ×2 (08:12→22:24)
[2020-05-06] MEDS: Senokot S 8.6-50 MG TAB PO SCH ×2 (08:12→22:24)
[2020-05-06] MEDS: Metoprolol Tartrate 25 MG TAB PO SCH ×2 (08:12→22:24)
[2020-05-06] MEDS: Amantadine HCl 100 mg Capsule PO SCH (08:12)
[2020-05-06] MEDS: Acetaminophen 325 MG TAB PO PRN ×3 (08:13→22:34)
[2020-05-06] MEDS: Ondansetron PF 4 MG/2 ML Vial IVP PRN ×2 (08:13→22:35)
[2020-05-06] MEDS: Polyethylene Glycol 3350 17 GM Packet PO SCH (08:14)
--- NOTE | 2020-05-06 11:08 | PRG ---
DATE OF SERVICE: 05/06/2020 I saw Ms. Aj Smyth in her hospital room early this morning. No events were reported overnight. Among the electronically recorded vital signs, I do not see any fevers. Blood pressures have been as high as 173 and as low as the 120s. On examination, Ms. Aj Smyth is more awake. I entered the room and say her name, she opens her eyes. She shrugs her shoulders. She nods her head with yes and no to questions. She says a few words. She remains awake during the entire examination. She follows commands with all 4 extremities. The left side is a bit slower, but is now moving quite purposefully and every time I ask her to squeeze my hands or show me 2 fingers, she does so. White blood cell count is 8.6. The sodium is 137 and creatinine is 1.21. She had significant proteinuria on her most recent UA. Ms. Aj Smyth has improved neurologically. She can now participate in therapy. She can sit at the bedside. Eventually, she would be able to stand to do exercises with our therapist. She would benefit greatly from inpatient rehabilitation. She can be moved to rehab any time if the primary service feels she is ready. Job ID: [id number] MTDD
[2020-05-06] MEDS: Bupropion 150 MG XL TAB PO SCH (11:25)
--- NOTE | 2020-05-06 20:02 | CON ---
DATE OF CONSULTATION: REASON FOR CONSULTATION: Elevated creatinine. HISTORY OF PRESENT ILLNESS: This is a very pleasant 69-year-old female, after an episode of a fall due to weakness. The patient's creatinine was 1.8 on admission and has improved to 1.2. The patient denies any new complaints today. PAST MEDICAL HISTORY: Significant for subdural hematoma, bilateral knee replacement, hip replacement, shoulder replacement, CABG, appendectomy, cholecystectomy, , hysterectomy, CKD stage 3, COPD, rheumatoid arthritis, history of cervical cancer, ESRD. ALLERGIES: REVIEWED. HOME MEDICATIONS: List reviewed. HOSPITAL MEDICATIONS: List reviewed. REVIEW OF SYSTEMS: A 15-point review of system was performed, negative except for positive noted above. HEENT: Eyes intact, no diplopia. Ears: No hearing loss or earache. Nose: No discharge or bleeding. CHEST: No cough or phlegm. ABDOMEN: No nausea or vomiting. GENITOURINARY: No hematuria. No Cruz catheter. MUSCULOSKELETAL: No low back pain. No joint swelling or pain. NEUROLOGICAL: No syncope. No seizures. SKIN: No complaints of rash or itching. PSYCHIATRIC: No depression. CONSTITUTIONAL: No weight loss or loss of appetite. PHYSICAL EXAMINATION: GENERAL: The patient is awake and alert. VITAL SIGNS: Afebrile, pulse 85, breathing 16, blood pressure 144/74. HEENT: Head normocephalic and atraumatic. Eyes intact, no ulcers. Nose intact, no ulcers. Ears intact, no ulcers. NECK: Supple. No JVD. CHEST: Symmetrical and clear. CARDIOVASCULAR: Shows S1 and S2, no rub, no murmur. GASTROINTESTINAL: Abdomen is soft, bowel sounds positive. EXTREMITIES: Show no edema or ulcers. SKIN: Shows no rash or petechiae. MUSCULOSKELETAL: Shows no joint swelling or stiffness. GENITOURINARY: Shows no Cruz or CVA tenderness. NEUROLOGIC: Motor intact. Cranial nerves intact. LABORATORY DATA: Creatinine 1.2. Urine shows proteinuria. We will recheck it again. IMPRESSION: 1. Hypertension, stable. 2. Anemia, stable. Medication based on GFR appropriate. No indication for dialysis. The patient has CKD stage 3. Job ID: [id number]
--- NOTE | 2020-05-06 20:27 | PDOC.GSPN ---
Surgery Progress Note: Subj - Subjective Patient reports: no new complaints, feels better, pain well controlled, voiding w/o difficulty, nausea Narrative: 69 white female with h/o CAD, CHF, RA, T2DM, CKD, COPD seen on rounds today for f/u s/p L craniotomy on 30 Apr 2020 for evacuation of [id number] subdural hematoma r/t 3 fall she suffered last week (x2 on Apr and x1 on Apr). Reports mild nausea, mild headache pain, and would like to get up onto the commode, but otherwise expresses no new concerns. Recent urine cx final report showed no growth, though urinalysis did show proteinuria; nephrology is following. Order to resume psych meds placed yesterday & should be initiated today. K is 3.5 on today's draw. Surgery Progress Note: Obj - Vital signs Vital signs: Vital Signs - Most Recent Temp Pulse Resp BP Pulse Ox 98.3 F 90 16 144/74 H 95 05/06/20 16:10 05/06/20 19:03 05/06/20 19:03 05/06/20 17:36 05/06/20 19:03 - Physical Exam General: no distress, well developed, well nourished, obese ENT: no hearing loss, other (Given swallow trial by Dr Kent with small amount of apple sauce & tolerated without difficulty.) Neck: trachea midline Cardiovascular: regular rate and rhythm Respiratory: clear to auscultation, normal expansion, normal respiratory effort Abdomen: soft, nondistended, positive bowel sounds, tender (diffuse mild TTP) Musculoskeletal: other (Resting comfortably in bed, though pt had slid down some; pt repositioned with Dr Kent & states it is somewhat better s/p re positioning.) Psychiatric: oriented to time, oriented to person, oriented to place, speech is normal, other (GCS = 15, improved vs yesterday's eval of 14 for mild confusion.) Wound: healing well, other (R scalp wounds well-approximated with lesley & without drainage or mack-wound edema/erythema/ecchymosis.) Additional exam: Eyes: EOMI. PERRLA bilat. MSK/Neuro: able to follow commands & move all 4 extremities. Surgery Progress Note: Results - Labs Result Diagrams: 05/06/20 05:02 05/07/20 05:08 Lab results: Laboratory Results - last 12 hr 05/05/20 05/06/20 05/06/20 23:02 00:23 11:35 POC Glucose 170 H 201 H 261 H 05/06/20 15:23 POC Glucose 239 H Surgery Progress Note: A/P - Problem (1) Status post craniotomy Status: Acute (2) Subdural hematoma Code(s): S06.5X9A - TRAUM SUBDR HEM W LOC OF UNSP DURATION, INIT Status: Acute (3) CKD (chronic kidney disease), stage IV Code(s): N18.4 - CHRONIC KIDNEY DISEASE, STAGE 4 (SEVERE) Status: Chronic (4) COPD (chronic obstructive pulmonary disease) Status: Chronic (5) DM2 (diabetes mellitus, type 2) Status: Chronic (6) HTN (hypertension) Code(s): I10 - ESSENTIAL (PRIMARY) HYPERTENSION Status: Chronic - Plan Plan: Continues to improve. Cognition today better vs yesterday's exam. Awake & able to have meaningful interaction. Urine cx from yesterday shows no growth at 24 hrs. Nursing staff advised of pt's mild nausea this am & will administer previously ordered anti-emetic. Will replace K. Will repeat BMP, mag/phos in am. PT called to room to help pt get up & onto the commode. With successful swallow test this morning, will advance diet, & if tolerates lunch well, may remove NG tube. Case management to continue coordinating placement--pt has been cleared by [facility] for d/c. Anticipate f/u on rounds in am. Addendum - Attending - Attending Attestation Date/Time: 05/08/20 3021 I personally evaluated the patient and discussed the management with . [] I agree with the History, Examination, Assessment and Plan documented above with any addition or exceptions noted below.
[2020-05-06] MEDS ORDERED: Docusate 100 MG CAP PO SCH (21:00)
[2020-05-06] MEDS ORDERED: Albuterol Sulfate 2.5 mg/3 ml Neb NEB PRN (21:16)
--- NOTE | 2020-05-06 22:12 | CON ---
DATE OF CONSULTATION: PRIMARY CARE PHYSICIAN: Dr. Van. CHIEF COMPLAINT: Altered mental status. HISTORY OF PRESENT ILLNESS: The patient is a 69-year-old female with a past medical history significant for coronary artery disease (stent x1), systolic CHF, COPD (4L NC), rheumatoid arthritis, peripheral neuropathy, DM 2 and depression who presents to our hospital as a transfer from [facility] for the above complaint. The patient apparently suffered a fall several days prior to her visit to the emergency department. Subsequently, she had a change in mental status. Imaging revealed that she suffered a subdural hematoma with a midline shift. She was transferred to our hospital for further care. We were consulted for management of her chronic conditions. PAST MEDICAL HISTORY: 1. CAD. 2. Systolic CHF. 3. COPD. 4. CKD stage 4. 5. Rheumatoid arthritis. 6. Peripheral neuropathy. 7. Gout. 8. Diabetes type 2. 9. Urinary incontinence. 10. Depression. 11. GERD. 12. Hyperlipidemia. 13. Hypertension. PAST SURGICAL HISTORY: 1. Cholecystectomy. 2. Hysterectomy. 3. Appendectomy. 4. Gastric bypass. 5. Bilateral hip replacements. 6. Bilateral knee replacements. 7. Right shoulder surgery. 8. Right elbow surgery. SOCIAL HISTORY: The patient lives with her family. Former smoker, quit in 2014. No history of heavy alcohol intake or illicit drug use. She is a retired professor. She ambulates with a roller walker. FAMILY HISTORY: Noncontributory to this case. REVIEW OF SYSTEMS: RESPIRATORY: Denies any cough, shortness of breath or wheezing. CARDIOVASCULAR: Denies any chest pain, heart palpitations, lightheadedness or swelling in the lower extremities. ABDOMEN: Denies any abdominal pain, nausea, vomiting, diarrhea/constipation. URINARY: Denies any dysuria or hematuria. CONSTITUTIONAL: Denies fever, or chills. NEUROLOGIC: Denies any focal motor deficits. Reports mild headache. PHYSICAL EXAMINATION: VITAL SIGNS: Temperature 98.3, blood pressure 144/74, heart rate 90, respirations 16, 95% on 2 L nasal cannula. CONSTITUTIONAL: The patient appears comfortable in no acute distress. HEAD: Right side of the scalp is shaved. Scalp incision closed with lesley, clean, dry, and intact. Mild bruising to the bridge of her nose. EYES: PERRLA. Extraocular muscles intact. Sclerae not icteric. ENT: Oropharynx is clear. Uvula midline. Moist mucous membranes. No oral lesions. NECK: No cervical spinous tenderness. No cervical adenopathy. RESPIRATORY/CHEST: Respirations even, nonlabored. Clear to auscultation. No rhonchi, wheezes, or rales. CARDIOVASCULAR: S1 and S2 appreciated. No murmurs, rubs, or gallops. ABDOMEN: Soft, nontender, nondistended. Active bowel sounds. No guarding. No rigidity. No rebound tenderness. Negative Rovsing sign. Negative Lobato sign. BACK: No central spinous tenderness. No CVA tenderness. EXTREMITIES: Upper extremities: Full range of motion. Mild weakness. Sensation intact. Palpable radial pulses. Lower extremities: Full range of motion. Mild weakness bilaterally. Sensation intact. Palpable pedal pulses. No swelling. NEUROLOGIC: The patient is alert. She is oriented to person, place, and time. She does not remember her recent fall. She follows commands. PSYCHIATRIC: Denies SI, HI. A and O x4. LABS AND DIAGNOSTICS: Sodium 137, potassium 3.5, chloride 102, carbon dioxide 23, BUN 39, creatinine 1.21, GFR 44, glucose 239, calcium 8.9, phosphorus 3.2, mag 2.0. WBC is 8.6, hemoglobin 10.8, hematocrit 34.5, platelets 215. UA: 75 leukocyte esterase, 21-50 wbcs. No bacteria. No nitrites. IMPRESSION: 1. Coronary artery disease. 2. Systolic congestive heart failure. 3. Chronic obstructive pulmonary disease. 4. Rheumatoid arthritis. 5. Peripheral neuropathy. 6. Diabetes type 2. 7. Gout. 8. Depression. 9. Gastroesophageal reflux disease. 10. Hypertension. 11. Hyperlipidemia. 12. SDH with midline shift s/p fall. PLAN: In terms of her CAD , agree with continuing her beta cami and calcium channel cami. We will hold aspirin. Defer this to Neurology. In terms of her CHF, continue metoprolol, Cardizem. In terms of her COPD, oxygen as needed and agree with restarting her Brovana and Pulmicort. In terms of her rheumatoid arthritis, we will restart her Plaquenil and sulfasalazine. In terms of her peripheral neuropathy, restart her zonisamide. We will hold her gabapentin for now. In terms of her type 2 diabetes, agree with mild sliding scale and Accu-Cheks a.c. and at bedtime. We will restart her home dose Januvia and hold her Actos. Blood glucose is in the 200s. We will start a consistent carb diet. In terms of her gout, we will hold colchicine for now. In terms of depression, we will restart her Cymbalta and Wellbutrin. In terms of her GERD, agree with her taking Protonix. SCDs for deep venous thrombosis prophylaxis. No pharmacological DVT prophylaxis. Protonix for gastrointestinal prophylaxis. Code status is full code. Discussed the case with attending physician, Dr. Barnes, who agrees with plan of care. Job ID: [id number] MTDD
[2020-05-06] MEDS: Atorvastatin Calcium 10 MG TAB PO SCH (22:23)
[2020-05-06] MEDS: Amitriptyline HCl 25 MG TAB PO SCH (22:23)
[2020-05-06] MEDS: sulfaSALAzine 500 MG TAB PO SCH (22:24)
--- NOTE | 2020-05-06 22:42 | PDOC.BPN ---
- Brief Progress Note Encounter Date: 05/06/20 Encounter Time: 21:10 Patient was seen during evening rounds on the surgical floor awake, alert in no distress. She reports some mild head pain but otherwise no other complaints. No issues reported by the patients nurse. Vital signs are stable and patient is afebrile. Plan of care is unchanged
[2020-05-07 05:42] LABS: Anion Gap 15 mmol/L (10-20); BUN (Urea Nitrogen) 37 mg/dL (9.8-20.1); Calc. Creatinine Clearance 64 mL/min (70-130); Calcium 8.7 mg/dL (7.8-10.44); Carbon Dioxide 24 mmol/L (23-31); Chloride 103 mmol/L (98-107); Glucose 231 mg/dL (80-115); Magnesium 1.8 mg/dL (1.6-2.6); Phosphorus 3.4 mg/dL (2.3-4.7); Potassium 3.9 mmol/L (3.5-5.1); Sodium 138 mmol/L (136-145)
[2020-05-07] MEDS: HumaLOG 300 UNITS/3 ML VIAL SC PRN ×2 (05:52→12:30)
--- NOTE | 2020-05-07 07:44 | PRG ---
DATE OF SERVICE: I saw Ms. Aj Smyth in her hospital room this morning. She was resting comfortably as I entered the room. She had the television on and said good morning to me before I spoke to her. She has no complaints. Among the electronically recorded vital signs, I do not see any fevers. Blood pressure has been in the 130s to 170s. Ms. Aj Smyth is wide awake. She converses. She speaks in sentences. She makes sense. All four extremities are moving. She says she ate some food yesterday, but does not recall sitting in the bed to chair yesterday. She did not do much work with Physical Therapy, according to her. Sodium this morning is 138. Ms. Aj Smyth is awake. She is eating well. The NG tube can be removed. She can be discharged to inpatient rehabilitation at any point. When she is accepted for rehab, she can make the transfer. We will see her in the office in 2 to 3 weeks with a new CT scan. Job ID: [id number] MTDD
[2020-05-07] MEDS ORDERED: Magnesium 2 GM/50 ML 2 GM in Premix Bag 1 BAG IVPB SCH (07:45)
[2020-05-07 07:56] LABS: Creatinine, Urine 62.47 mg/dL (47-110)
[2020-05-07] MEDS: Acetaminophen 325 MG TAB PO PRN (08:09)
[2020-05-07] MEDS: Polyethylene Glycol 3350 17 GM Packet PO SCH ×2 (08:09→08:26)
[2020-05-07] MEDS: DULoxetine 60 MG CAP PO SCH (08:10)
[2020-05-07] MEDS: Bupropion 150 MG XL TAB PO SCH (08:10)
[2020-05-07] MEDS: Senokot S 8.6-50 MG TAB PO SCH ×2 (08:10→08:27)
[2020-05-07] MEDS: sulfaSALAzine 500 MG TAB PO SCH (08:10)
[2020-05-07] MEDS: Metoprolol Tartrate 25 MG TAB PO SCH (08:11)
[2020-05-07] MEDS: Amantadine HCl 100 mg Capsule PO SCH ×2 (08:11→08:23)
[2020-05-07] MEDS: Budesonide 0.5 MG/2 ML NEB NEB SCH (08:12)
[2020-05-07] MEDS: Arformoterol 15 MCG/2 ML NEB NEB SCH (08:12)
--- NOTE | 2020-05-07 08:14 | PDOC.HOSPP ---
- Subjective Encounter Date: 05/07/20 Encounter Time: 07:55 Subjective: No overnight events. Patient states she overall feels okay. No concerns or complaints at this time. Denies CP, SOB, abdominal pain. Reports her BM have been regular. Feels as though she is at her baseline mental status. AOx4. Chart and medications reviewed. - Objective Vital Signs & Weight: Vital Signs (12 hours) Temp Pulse Resp BP Pulse Ox 05/07/20 05:43 98.7 F 83 20 155/71 H 96 05/07/20 01:10 98.0 F 79 20 157/80 H 97 Weight Admit Weight 213 lb 13.568 oz Weight 213 lb 13.568 oz Most Recent Monitor Data Heart Rate from ECG 94 NIBP 138/54 NIBP BP-Mean 82 Respiration from ECG 20 SpO2 94 I&O: 05/06/20 05/07/20 05/08/20 06:59 06:59 06:59 Intake Total 810 2400 Output Total 100 1175 Balance 710 1225 Result Diagrams: 05/06/20 05:02 05/07/20 05:08 Additional Labs: Accuchecks 05/07/20 05/07/20 05/06/20 05:48 01:05 15:23 POC Glucose 231 H 251 H 239 H 05/06/20 05/06/20 05/05/20 11:35 00:23 23:02 POC Glucose 261 H 201 H 170 H Hospitalist ROS - Review of Systems Constitutional: reports: weakness. denies: fever, chills, sweats Eyes: denies: vision change ENT: denies: nose congestion, throat pain Cardiovascular: denies: chest pain, palpitations, orthopnea, paroxysmal noc. dyspnea, edema, light headedness, other Gastrointestinal: denies: nausea, vomiting, abdominal pain, diarrhea, constipation, melena, hematochezia, other Genitourinary: denies: dysuria Skin: denies: rash, lesions Neurological: denies: weakness, numbness, incoordination, change in speech, confusion, seizures, other - Medication Medications: Active Medications Generic Name Dose Route Start Last Admin Trade Name Freq PRN Reason Stop Dose Admin Acetaminophen 650 mg 04/30/20 22:41 05/06/20 22:34 Acetaminophen 325 Mg Tab PO 650 mg Q4H PRN Administration Headache/Fever Or Mild Pain Acetaminophen 650 mg 05/04/20 02:22 05/04/20 06:08 Acetaminophen 650 Mg Suppository AK 650 mg Q4H PRN Administration Fever/Mild Pain Albuterol/Ipratropium 3 ml 05/01/20 11:00 05/06/20 19:03 Ipratropium/Albuterol Sulfate 3 Ml Neb NEB 3 ml [id number] BRENDA Administration Amantadine HCl 200 mg 05/05/20 09:00 05/06/20 08:12 Amantadine Hcl 100 Mg Capsule PO 200 mg DAILY BRENDA Administration Amitriptyline HCl 25 mg 05/05/20 21:00 05/06/20 22:23 Amitriptyline Hcl 25 Mg Tab PO 25 mg HS BRENDA Administration Arformoterol Tartrate 15 mcg 05/05/20 21:00 05/06/20 19:05 Arformoterol 15 Mcg/2 Ml Neb NEB 15 mcg BID BRENDA Administration Atorvastatin Calcium 10 mg 05/05/20 21:00 05/06/20 22:23 Atorvastatin Calcium 10 Mg Tab PO 10 mg HS BRENDA Administration Budesonide 0.5 mg 05/05/20 21:00 05/06/20 19:05 Budesonide 0.5 Mg/2 Ml Neb NEB 0.5 mg BID BRENDA Administration Bupropion HCl 150 mg 05/06/20 09:00 05/06/20 11:25 Bupropion 150 Mg Xl Tab PO 150 mg DAILY BRENDA Administration Diltiazem HCl 30 mg 05/05/20 23:59 05/07/20 05:52 Diltiazem Hcl 30 Mg Tablet PO 30 mg Q6HR BRENDA Administration Diphenhydramine HCl 50 mg 04/30/20 22:41 05/04/20 04:40 Diphenhydramine 50 Mg/Ml Vial IVP 50 mg Q6H PRN Administration Itching & Insomnia Docusate Sodium 100 mg 05/06/20 21:00 05/06/20 23:15 Docusate 100 Mg Cap PO Not Given BID BRENDA Duloxetine HCl 60 mg 05/06/20 09:00 05/06/20 22:24 Duloxetine 60 Mg Cap PO 60 mg BID BRENDA Administration Hydralazine HCl 10 mg 05/05/20 07:21 05/06/20 10:14 Hydralazine 20 Mg/Ml Vial SLOW IVP 10 mg Q4H PRN Administration SBP> 160 mmHg Levetiracetam 250 mg/ Sodium 102.5 mls @ 200 mls/hr 05/03/20 09:00 05/06/20 22:23 Chloride IVPB 102.5 mls BID BRENDA Administration Insulin Human Lispro 0 units 04/30/20 23:16 05/07/20 05:52 Humalog 300 Units/3 Ml Vial SC 3 unit .MILD SLIDING SCALE PRN Administration Mild Correctional Scale Insulin Human Lispro 0 units 04/30/20 23:16 05/07/20 01:05 Humalog 300 Units/3 Ml Vial SC 3 unit .BEDTIME SLIDING SC PRN Administration Bedtime Correctional Scale Metoprolol Tartrate 25 mg 05/05/20 21:00 05/06/20 22:24 Metoprolol Tartrate 25 Mg Tab PO 25 mg BID BRENDA Administration Ondansetron HCl 4 mg 04/30/20 23:16 05/06/20 22:35 Ondansetron Pf 4 Mg/2 Ml Vial IVP 4 mg Q6H PRN Administration Nausea Pantoprazole Sodium 40 mg 05/05/20 21:00 05/06/20 22:24 Pantoprazole 40 Mg Tab PO 40 mg BID BRENDA Administration Polyethylene Glycol 17 gm 05/01/20 09:00 05/06/20 08:14 Polyethylene Glycol 3350 17 Gm Packet PO 17 gm DAILY BRENDA Administration Senna/Docusate Sodium 1 tab 05/01/20 09:00 05/06/20 22:24 Senokot S 8.6-50 Mg Tab PO 1 tab BID BRENDA Administration Sulfasalazine 500 mg 05/06/20 21:00 05/06/20 22:24 Sulfasalazine 500 Mg Tab PO 500 mg BID BRENDA Administration Hospitalist Exam Vitals: Vital Signs (12 hours) Temp Pulse Resp BP Pulse Ox 05/07/20 05:43 98.7 F 83 20 155/71 H 96 05/07/20 01:10 98.0 F 79 20 157/80 H 97 Weight Admit Weight 213 lb 13.568 oz Weight 213 lb 13.568 oz Most Recent Monitor Data Heart Rate from ECG 94 NIBP 138/54 NIBP BP-Mean 82 Respiration from ECG 20 SpO2 94 General Appearance: NAD, awake alert Eye: PERRL, anicteric sclera ENT: moist mucosa ENT - other findings: Staple line C/D/I to scalp, hematoma around R orbit Neck: supple, symmetric, no JVD, no thyromegaly, no lymphadenopathy, no carotid bruit Heart: RRR, no murmur, no gallops, no rubs, normal peripheral pulses Respiratory: CTAB, no wheezes, no rales, no ronchi, normal chest expansion, no tachypnea, normal percussion Gastrointestinal: soft, non-tender, non-distended, normal bowel sounds, no palpable masses, no hepatomegaly, no splenomegaly, no bruit Extremities: no cyanosis, no clubbing, no edema Skin: normal turgor, no rashes Neurological: cranial nerve grossly intact, normal sensation to touch, no weakness, no focal deficits, no new deficit Musculoskeletal: normal tone, normal strength, no muscle wasting Psychiatric: normal affect, normal behavior, A&O x 3 Hosp A/P - Plan 69-year-old female with past medical history of coronary artery disease, CHF, COPD not on home O2, CKD stage III, rheumatoid arthritis, peripheral neuropathy, gout, type 2 diabetes mellitus, hypertension, hyperlipidemia who initially presented to [facility] after a fall with head strike and dizziness. Initial scans of patient's brain were negative, but a day later patient's mental status declined she was rescanned and found to have a significant subdural hematoma with midline shift that required emergent evacua tion. Patient now no overall doing much better with plans for discharge to inpatient rehab. Hospitalist service consulted for management of patient's chronic conditions. Subdural Hematoma Patient with fall from standing with head strike with slow forming subdural hematoma. This was identified on 05/01 and patient taken for emergent evacuation on 05/[address] Mercedes. Patient has been doing well postoperatively and surgical team feels patient is ready from their perspective for inpatient rehab. Plan Avoid anticoagulation Postop course per surgical team PT/OT Case management for inpatient rehab Acute kidney injury superimposed on chronic kidney disease Patient with small rise in creatinine to 1.8. Improved to 1.2. Patient with chronic kidney disease stage III. Is at her baseline kidney function and this has resolved. Plan Trend kidney function Avoid nephrotoxic agents when possible Renal dosing as appropriate Hypomagnesemia Patient's magnesium low at 1.8. Since patient has significant cardiac history will keep magnesium level greater than 2. Replete and monitor as needed. Plan Keep magnesium greater than 2 Replete and monitor Hypertension History of hypertension. Patient on home metoprolol and Cardizem. On review of patient's vital signs patient has been consistently hypertensive in the 150s during admission. Will add lisinopril 5 mg daily and continue to titrate and treat as needed. Plan Start lisinopril 5 mg daily Coronary artery disease History of coronary artery disease. We will continue home metoprolol, Cardizem. Will hold aspirin, defer to neurosurgery. Congestive heart failure Congestive heart failure with reduced ejection fraction. Echocardiogram from September 2019 shows an EF of 45 to 49%. Patient appears euvolemic on exam. Will continue home beta-cami, calcium channel cami, and add lisinopril since patient has been hypertensive and would likely benefit from additional goal- directed therapy. COPD History of COPD not on home O2. We will continue home Pulmicort and Brovana inhalers. Respiratory status stable. Rheumatoid arthritis Continue home Plaquenil and sulfasalazine. Stable. Type 2 diabetes mellitus We will continue home Januvia. May restart home Actos continue carb consistent diet, ISS. Peripheral neuropathy Continue zonisamide, hold gabapentin. Anxiety and depression Continue home Cymbalta and Wellbutrin. Mood stable. GERD Continue Protonix DVT prophylaxisSCDs Full code
[2020-05-07] MEDS ORDERED: Hydroxychloroquine Sulfate 200 MG TAB PO SCH (09:00)
[2020-05-07] MEDS ORDERED: Folic Acid 1 MG TAB PO SCH (09:00)
[2020-05-07] MEDS ORDERED: Lisinopril 5 MG TAB PO SCH (09:00)
[2020-05-07] MEDS ORDERED: Alogliptin 6.25 MG TAB PO SCH (09:00)
[2020-05-07] MEDS ORDERED: Zonisamide 25 MG CAP PO SCH (09:00)
[2020-05-07] MEDS ORDERED: Melatonin 3 MG TAB PO PRN (10:28)
[2020-05-07 11:03] VITALS: TEMP 98.4
[2020-05-07 14:17] LABS: SARS-CoV-2 NAA Rapid Test Not Detected (NotDetected)
--- NOTE | 2020-05-07 15:16 | PRG ---
DATE OF SERVICE: 05/07/2020 SUBJECTIVE: A 69-year-old female, being seen for acute kidney injury. The patient denied nausea, vomiting, or chest pain. PHYSICAL EXAMINATION: GENERAL: The patient is awake and alert. VITAL SIGNS: Afebrile, pulse 69, breathing at 16, blood pressure 118/69. HEENT: Head normocephalic and atraumatic. Eyes intact, no ulcers. Nose intact, no ulcers. Ears intact, no ulcers. NECK: Supple. No JVD. CHEST: Symmetrical and clear. CARDIOVASCULAR: Shows S1 and S2, no rub, no murmur. GASTROINTESTINAL: Abdomen is soft, bowel sounds positive. EXTREMITIES: Show no edema or ulcers. SKIN: Shows no rash or petechiae. MUSCULOSKELETAL: Shows no joint swelling or stiffness. GENITOURINARY: Shows no Cruz or CVA tenderness. NEUROLOGIC: Motor intact. Cranial nerves intact. DIAGNOSTIC STUDIES: Labs show hemoglobin 10.8. ASSESSMENT AND PLAN: 1. Chronic kidney disease, stage 3, stable. 2. Hypertension, stable. 3. Acute kidney injury, resolved. Medication based on GFR appropriate. Job ID: [id number]
[2020-05-07 15:49] VITALS: BP 115/66
--- NOTE | 2020-05-07 16:36 | DIS ---
DATE OF ADMISSION: 04/30/2020 DATE OF DISCHARGE: 05/07/2020 ADMISSION DIAGNOSES: Multiple falls, subacute and chronic subdural hemorrhages with midline shift, and acute kidney injury on chronic kidney disease. DISCHARGE DIAGNOSES: Multiple falls, subacute and chronic subdural hemorrhages with midline shift, and acute kidney injury on chronic kidney disease. CONSULTING PHYSICIAN: Dr. Mercedes of Neurosurgery. PROCEDURES: The patient went to the OR on April 30, 2020 and had an attempted jojo hole evacuation of subdural hemorrhage that was converted to a full frontotemporal craniotomy and evacuation of the subdural hemorrhage. HOSPITAL COURSE: The patient is a 69-year-old female, presented to the emergency department after she had several falls. Originally, the patient was seen in the emergency department after a fall and no injury was noted. She did have a head laceration which was sutured. She went home and her family reported she fell again. Subsequently, she re-presented to the ER and was found to have a subacute to chronic subdural hemorrhages with midline shift. She was emergently taken to the OR by Dr. Mercedes who attempted jojo hole evacuation of the subdural hemorrhage, but ultimately converted to a full frontotemporal craniotomy and evacuation of subdural hemorrhage. Postoperatively, the patient spent sometime in the ICU, but ultimately, was extubated and moved to the floor. Initially, she was receiving feeding through [facility], but she passed a swallow evaluation, stable for discharge. She was started on her home medications, but ultimately, needed additional metoprolol for blood pressure management. She did have an acute kidney injury on chronic kidney disease, which was treated conservatively and ultimately resolved. The patient also received Keppra 250 mg b.i.d. for seizure prophylaxis per Dr. Mercedes's recommendations. At the time of discharge, the patient's pain was well controlled. She was tolerating a regular pureed diet, voiding without difficulties and having bowel movements. On the day of discharge, her GCS was 14 to 15. She would occasionally become confused, which was much improved from the GCS of about 10 to 12 from which she presented. OBJECTIVE: VITAL SIGNS: Temperature 98.4, pulse 62, respirations 16, oxygen saturation 94% on room air, and blood pressure 115/66. GENERAL: Well-appearing elderly female, sitting up in bed with no signs of acute distress. PULMONARY: Equal chest rise and fall. Clear breath sounds bilaterally. No signs of acute respiratory distress. CARDIAC: Regular rate and rhythm. GI: Abdomen is soft, nontender, nondistended. EXTREMITIES: 2+ pulses in all extremities. Gross motor and sensation intact. No significant swelling noted. 5/5 strength in bilateral erecting engineer, plantar flexion, dorsiflexion. Gross normal sensation x4 extremities. NEUROLOGIC: GCS is 14 to 15, -1 for confusion. Pupils equal, round, reactive to light bilaterally. The patient with right-sided hemicraniotomy. Surgical incision clean, dry, and intact with no signs of oozing or infection. DISCHARGE INSTRUCTIONS: The patient was discharged to a detention facility. Activity as tolerated. Regular diet pureed with extra sauce and gravy, liquid nectar thickness. She will have Physical and Occupational Therapy as well as speech-language pathology. She will have incentive spirometry, oxygen, and walker. DISCHARGE MEDICATIONS: Include: 1. Tylenol. 2. Albuterol sulfate. 3. Amitriptyline. 4. Brovana. 5. Pulmicort. 6. Bupropion. 7. Diltiazem. 8. Cymbalta. 9. Folic acid. 10. Keppra. 11. Melatonin. 12. Metoprolol. 13. Pantoprazole. 14. MiraLAX. 15. Senokot-S. 16. Sulfasalazine. 17. Actos. 18. Oxybutynin. FOLLOWUP APPOINTMENTS: The patient is to follow up with Dr. Mercedes in clinic in 2 to 3 weeks with a repeat head CT. No followup was needed with Dr. Kent in clinic. This patient was seen and evaluated by myself on the day of discharge. This is a summary of the patient's hospitalization for full details. Please see her medical record in its entirety. Job ID: [id number]
[2020-05-07] MEDS ORDERED: Melatonin 3 MG TAB PO SCH (21:00)
[2020-05-07] MEDS ORDERED: levETIRAcetam 500 MG TAB PO SCH (21:00)
--- NOTE | 2020-05-12 02:02 | PQF ---
CLINICAL DOCUMENTATION CLARIFICATION FORM: Dear : Thong Dorado MD Date / Time: 05/12/2020 Please exercise your independent, professional judgment in responding to the clarification form. Clinical indicators are provided on the bottom of this form for your review Please check appropriate box(es): Conflicting documentation was noted in the Medical Record; please clarify if patient is being treated/monitored for: [x ] CKD stage 3 [ ] CKD stage 4 [ ] ESRD [ ] Other diagnosis (Please specify if any) [ ] Unable to determine In addition, please specify: Present on Admission (POA): [ ] Yes [ ] No [ ] Unable to determine Physician Signature: Date/Time: For continuity of documentation, please document condition throughout progress notes and discharge summary. Thank You. To be completed by CDI/Coding staff for physician review: Present Clinical Indicators - Signs / Symptoms / Labs Results and Location in Medical Record [x] CKD Stage 3, ESRD Consult on 05/06 [x] CKD stage 4 H&P on 04/30 [x] Creatinine 1.86 Laboratory on 05/01 [x] Estimated GFR-27,36,44 Laboratory on 05/01,05/04,05/06 Present Risk Factors Results and Location in Medical Record [x] Hypertension Consult on 05/06 [x] Aged person 69 yrs H&P on 04/30 [ ] Present Treatments Results and Location in Medical Record [x] Reduce fluids to 50ml/h given n.p.corporate compliance manager Progress notes on 05/01 [x] Nephro consult Consult on 05/06 [x] Sodium chloride 1,000ml Medication from 04/30 to 05/05 CDS/Sample Case Porter Signature: AAS Phone #: Date/Time 05/12/2020 This is a permanent part of the Medical Record [facility]
== END 2020-05-07 16:52 | DRG 26 ==
LOC: ERS 18:58 → SDC/OP 20:14 → IMCU/EMU 23:49 → PACU-TCU 05-02 05:36 → SURG A 05-02 12:27
PROVIDERS: ADMIT Surgery; ATTEND Surgery
PROC: 00C40ZZ Extirpation of Matter from Intracranial Subdural Space, Open Approach (ICD-10-PCS; principal; 2020-04-30)
DX: S06.5X9A Traumatic subdural hemorrhage with loss of consciousness of unspecified duration, initial encounter (principal); I50.22 Chronic systolic (congestive) heart failure; N17.9 Acute kidney failure, unspecified; I13.0 Hypertensive heart and chronic kidney disease with heart failure and stage 1 through stage 4 chronic kidney disease, or unspecified chronic kidney disease; S06.2X9A Diffuse traumatic brain injury with loss of consciousness of unspecified duration, initial encounter; J44.9 Chronic obstructive pulmonary disease, unspecified; Z96.643 Presence of artificial hip joint, bilateral; Z96.653 Presence of artificial knee joint, bilateral; F32.9 Major depressive disorder, single episode, unspecified; Z96.611 Presence of right artificial shoulder joint; M06.9 Rheumatoid arthritis, unspecified; R40.2412 Glasgow coma scale score 13-15, at arrival to emergency department; I25.10 Atherosclerotic heart disease of native coronary artery without angina pectoris; Z20.822 Contact with and (suspected) exposure to COVID-19; Z88.8 Allergy status to other drugs, medicaments and biological substances; Z90.49 Acquired absence of other specified parts of digestive tract; Z90.710 Acquired absence of both cervix and uterus; Z87.891 Personal history of nicotine dependence; Z98.84 Bariatric surgery status; Z85.41 Personal history of malignant neoplasm of cervix uteri; Z79.899 Other long term (current) drug therapy; Z79.51 Long term (current) use of inhaled steroids; Z79.82 Long term (current) use of aspirin; Z95.5 Presence of coronary angioplasty implant and graft; I25.2 Old myocardial infarction; Z99.81 Dependence on supplemental oxygen; E87.5 Hyperkalemia; Z95.1 Presence of aortocoronary bypass graft; E11.42 Type 2 diabetes mellitus with diabetic polyneuropathy; E11.22 Type 2 diabetes mellitus with diabetic chronic kidney disease; M10.9 Gout, unspecified; E78.5 Hyperlipidemia, unspecified; K21.9 Gastro-esophageal reflux disease without esophagitis; E83.42 Hypomagnesemia; F41.9 Anxiety disorder, unspecified; N18.30 Chronic kidney disease, stage 3 unspecified
CPT/HCPCS: 0240U; 12011; 36415; 36416; 51702; 70450; 71045; 72125; 74018; 80048; 80053; 80177; 81001; 81003; 81015; 82550; 82570; 82805; 83605; 83690; 83735; 84100; 84156; 84484; 85025; 85610; 85730; 87086; 90471; 90715; 93005; 93010; 94640; 96374; C1713; C9113; G0390; J0360; J0690; J1200; J1720; J1953; J2001; J2150; J2250; J2270; J2405; J2550; J2704; J3010; J3475; J3490; J7050; J7620; J7626; S0020; S0028; U0002

== ENCOUNTER 2020-06-04 16:31 | Inpatient (IN) | payer MEDICARE, OTHER ==
[2020-06-04] MEDS ORDERED: hydrALAZINE 20 MG/ML VIAL SLOW IVP PRN ×2 (19:28→20:53)
[2020-06-04] MEDS ORDERED: Promethazine 25 MG TAB PO PRN (19:28)
[2020-06-04] MEDS ORDERED: Acetaminophen 325 MG TAB PO PRN (19:28)
[2020-06-04] MEDS ORDERED: Docusate 100 MG CAP PO PRN (19:28)
[2020-06-04] MEDS ORDERED: Promethazine HCl 25 MG/ML VIAL IM PRN (19:28)
[2020-06-04] MEDS ORDERED: Labetalol HCl 100 MG/20 ML VIAL SLOW IVP PRN (19:28)
[2020-06-04] MEDS ORDERED: Insulin Regular 300 UNITS/3 ML VIAL SC PRN ×2 (20:55)
[2020-06-04] MEDS ORDERED: Ondansetron PF 4 MG/2 ML Vial IVP PRN (20:55)
[2020-06-04] MEDS ORDERED: Dextrose 50% Abboject 50 ML SYRINGE SLOW IVP PRN (20:55)
[2020-06-04] MEDS ORDERED: Dextrose 5% in Water 1,000 ML IV PRN (20:55)
[2020-06-04] MEDS: Sodium Chloride 0.9% 1,000 ML IV SCH (22:09)
--- NOTE | 2020-06-04 22:55 | HP ---
TRAUMA SURGEON: Delmar Kent DO. CONSULTATION PHYSICIAN: Michelle Mercedes M.D. HISTORY OF PRESENT ILLNESS: The patient is a 69-year-old female, who presented as a direct admit from [facility]. The patient was last admitted to our hospital on April 30, 2020 and discharged on May 07, 2020 after she had a mechanical fall with subacute on chronic subdural hemorrhage. The patient went to the OR on April 30, [address] Mercedes and had attributed jojo-hole evacuation of subdural hemorrhage that was converted to a full frontotemporal craniotomy and evacuation of the subdural hemorrhage. The patient had uncomplicated hospital course and was eventually discharged to a [facility] facility. She was discharged from the [facility] facility home on Monday of this week. She has home physical therapy, occupational therapy as well as home health nurse that visits with her. However, during the day, she is home alone while her qlviavqz-kt-htn goes to work. She reports today she stood up from her wheelchair to try to reach up for something in a cabinet. She fell back into the wheelchair and ultimately tried to get up again. At that time, she fell backwards and hit the back of her head. She denies loss of consciousness. She is not on any anticoagulation. She was evaluated at the [facility] with a CT scan, which demonstrated a stable subdural hemorrhage. Her mentation is at baseline with a GCS of 15. Dr. Mercedes's team was consulted and they recommended observation and transferred to the [facility]. They are planning to repeat a CT scan in the morning. The patient denies nausea, vomiting, cough, chest pain, or shortness of breath. REVIEW OF SYSTEMS: All additional 10-point review of systems negative except as indicated above. PAST MEDICAL HISTORY: Coronary artery disease with history of CT x2 and cardiac stent x1, CKD stage 4, rheumatoid arthritis, type 2 diabetes, chronic systolic congestive heart failure with EF of 45% to 50%, COPD on chronic oxygen at home 2 to 4 L. PAST SURGICAL HISTORY: Right-sided frontal temporal hemicraniectomy, cholecystectomy and hysterectomy, appendectomy, gastric bypass, bilateral hip replacements, bilateral knee replacements, right shoulder surgery, right elbow surgery. SOCIAL HISTORY: The patient lives with her ueirojzl-fk-fia. She is a previous smoker, but quit 10 years ago. She denies alcohol and drug use. MEDICATIONS: 1. Keppra. 2. Metoprolol. 3. Melatonin. 4. MiraLAX. 5. Senokot. 6. Tylenol. 7. Pravastatin. 8. Pulmicort. 9. Cymbalta. 10. Protonix. 11. Brovana. 12. Amitriptyline. 13. Albuterol nebulizers. 14. Sulfasalazine. 15. Oxybutynin chloride. 16. Bupropion. 17. . 18. Diltiazem. 19. Actos. ALLERGIES: MACROBID. PHYSICAL EXAMINATION: VITAL SIGNS: Temperature 99.3, pulse 87, respirations 20, oxygen saturation 98% 3 L nasal cannula, blood pressure 101/61. GENERAL: Well-appearing elderly female sitting up in bed with no signs of acute distress. PULMONARY: Equal chest rise and fall, clear breath sounds bilaterally. No signs of acute respiratory distress. CARDIAC: Regular rate and rhythm. GASTROINTESTINAL: Abdomen is soft, nontender, nondistended. EXTREMITIES: 2+ pulses in all extremities. Gross motor and sensation intact. No significant swelling noted. NEURO: GCS is 15. Pupils equal, round, reactive to light bilaterally. LABORATORY FINDINGS: White count 7.8, hemoglobin 10.0, hematocrit 33.1, platelets 198. INR 1.0, PTT 26.1. Sodium 144, potassium 4.5, chloride 107, bicarb 27, BUN 37, creatinine 2.57, glucose 156. UA is negative for infection. DIAGNOSTIC FINDINGS: CT scan of the brain completed today demonstrates stable subdural hematoma. ASSESSMENT: 1. Status post mechanical fall from standing. 2. Stable subdural hematoma, now status post right-sided frontal temporal craniotomy and evacuation of subdural hemorrhage on April 30, 2020. 3. Acute kidney injury on chronic kidney disease, stage 4. 4. History of coronary artery disease with myocardial infarction x2 and cardiac stent x1. 5. Chronic kidney disease 4. 6. Rheumatoid arthritis. 7. Type 2 diabetes. 8. Chronic congestive heart failure. 9. Chronic obstructive pulmonary disease with chronic home O2 use. PLAN: The patient is admitted to observation. Dr. Mercedes's team has been consulted and they recommend repeat CT scan in the morning. She will have a diabetic diet. Restart home medications as clinically indicated. We will also start the patient on IV hydration as she has worsening kidney function since her last hospitalization. The patient will likely need placement at a skilled facility and again for more rehab or she will need more assistance at home and taking care of herself while her softokva-fi-pxn is at work during the day. We will ask Case Management to look in option for her tomorrow. Job ID: [id number] MTDD
--- NOTE | 2020-06-05 01:23 | CON ---
DATE OF CONSULTATION: 06/04/2020 CHIEF COMPLAINT: Fall. HISTORY OF PRESENT ILLNESS: Ms. Smyth is a 69-year-old female, who is home from rehab, decided to get something out of the refrigerator. She has been ambulating with a wheelchair since back from rehab. When she got something out of the refrigerator, her legs got weak and fell backwards hitting the back of her head. She suffered a left occipital hematoma. Head CT was done indicating a stable subdural hematoma. She has a history on 05/01/2020 of a subdural hematoma due to a fall. The subdural hematoma had mass effect with a right hemispheric midline shift. An emergent right craniectomy was performed by Dr. Mercedes. Today, she presents moving all her extremities and answering questions appropriately. REVIEW OF SYSTEMS: Negative unless stated in the above HPI. MEDICAL HISTORY: Coronary artery disease, history of [place] x2 with stent placement x1, CKD stage 4, rheumatoid arthritis, type 2 diabetes, chronic systolic CHF, COPD, subdural hematoma with mass effect and midline shift 05/01/2020. PAST SURGICAL HISTORY: Cholecystectomy and hysterectomy, appendectomy, gastric bypass, bilateral hip replacement, bilateral knee replacement, right shoulder surgery, right elbow surgery, right craniectomy due to subdural hematoma 05/01/[address] Mercedes. SOCIAL HISTORY: Quit smoking 10 years ago. Denies illicit drugs and alcohol use. MEDICATIONS: 1. Protonix. 2. Pravastatin. 3. Actos. 4. Gabapentin. 5. Cymbalta. 6. Cardizem. 7. Amitriptyline. 8. Wellbutrin. 9. Metoprolol. 10. Fentanyl patches. 11. Albuterol. 12. Budesonide. 13. Brovana. 14. Baby aspirin. 15. Docusate. 16. Zofran. 17. Folic acid. 18. Iron. ALLERGIES: NITROFURANTOIN. PHYSICAL EXAMINATION: VITAL SIGNS: BP 144/82, heart rate 82, respirations 18, temperature 97.8. HEENT: Left occipital hematoma. Pupils are equal, reactive to light. Extraocular movements are intact. NECK: Soft, supple. No masses are noted. Range of motion is intact and nonpainful. NEUROLOGIC: Awake, alert, and oriented x3. Memory, attention, fund of knowledge normal. Cranial nerves are grossly intact. EXTREMITIES: Normal. Free active range of motion on all extremities. No focal motor weakness. No reflex asymmetry. IMAGING: Stable subdural hematoma. PLAN: Repeat CT of the brain tomorrow morning. If scan shows improvement or no change, we will transfer care to the Trauma Service. Supportive care. No intracranial surgery at this time. We will have her follow up in 2 to 3 weeks in our clinic and repeat the scan prior to the visit. Job ID: [id number] MTDD
[2020-06-05 03:04] VITALS: BMI 29.2
[2020-06-05 05:15] LABS: SARS-CoV-2 PCR by NAA Not Detected (NotDetected)
--- NOTE | 2020-06-05 06:53 | CT ---
PRELIMINARY REPORT/DIRECT RADIOLOGY/EMERGENCY AFTER HOURS PROCEDURE: Comparison: Comparison is made to prior report dated 05/01/2020, images were not available for compari son. Addendum electronically signed by Rohan Roper MD on June 05, 2020 5:14:45 AM LOG CARRIER OPERATOR EXAM: CT Head Without Intravenous Contrast. CLINICAL HISTORY: F/U [facility] TECHNIQUE: Axial computed tomography images of the head/brain without intravenous contrast. COMPARISON: CT - CT BRAIN WO CON - 05/01/2020 05:00 AM LOG CARRIER OPERATOR FINDINGS: BRAIN: No acute intraparenchymal hemorrhage. No mass lesion. No CT evidence for acute territorial inf arct. No midline shift. There is a small amount of subdural isodense fluid collection in the right frontal, parietal, and the temporal region, maybe smaller compared to prior examination. VENTRICLES: No hydrocephalus. ORBITS: The orbits are unremarkable. SINUSES AND MASTOIDS: The paranasal sinuses and mastoid air cells are clear. SOFT TISSUES: No significant facial or scalp soft tissue swelling evident. No radiopaque foreign body is seen. BONES: There is a right frontal, parietal, temporal craniotomy. No acute skull fracture. IMPRESSION: There is a small amount of subdural isodense fluid collection in the right frontal, parie carmela, and the temporal region, maybe smaller compared to prior examination. No acute intracranial abnormality. ELECTRONICALLY SIGNED BY: Rohan Roper MD Jun 05, 2020 5:14:07 AM LOG CARRIER OPERATOR FINAL REPORT HEAD CT WITHOUT CONTRAST: DATE: 06/05/2020. COMPARISON: 06/04/2020. HISTORY: Fall, reevaluate subdural hematoma. FINDINGS: The visualized paranasal sinuses and mastoid air cells are well-aerated. There is evidence of prior r ight-sided craniotomy. There is atherosclerotic calcification of the cavernous carotid arteries in the distal left vertebral artery. There is a small subdural collection laterally on the right deep to the craniotomy site within the fr ontotemporal region which measures up to approximately 6-7 mm in transverse dimension, unchanged when compared to studies dating back to 05/22/2020. No new hemorrhage. Multifocal periventricular mason p and subcortical white matter hypodensity is noted, evidence of small vessel disease. Cerebral volume loss with prominence of the CSF containing spaces noted. IMPRESSION: Small stable right-sided subdural hematoma. No new intracranial hemorrhage. This is in agreement with the preliminary report. Transcribed Date/Time: 06/05/2020 7:46 AM
--- NOTE | 2020-06-05 07:10 | PRG ---
DATE OF SERVICE: 06/05/2020 I personally examined the patient, agreed with documentation of Xavier Martinez PA-C, dated 06/04/2020. Briefly, Vivian Smyth is the patient of ours in our Neurosurgery service who underwent a craniotomy for subdural hematoma. She is in rehab recovering and was making progress. She finished with the rehab, going home. She took a fall and was brought back to the emergency department. CT examination of brain showed improvement of her subdural hematoma compared to previous scans. She was kept overnight for observation. A followup scan was done this morning showing improvement as well. Among the electronically recorded vital signs, there are no fevers. Blood pressures have been in the 110s to 130s. Stable. The CT examination is improved from prior scans. I do not have any neurosurgical intervention for Ms. Aj Smyth. When she is safe for activities of daily living, she can be discharged. Follow up has not changed. Job ID: [id number] MTDD
[2020-06-05] MEDS ORDERED: ALBUTEROL SULFATE NEB PRN (07:50)
[2020-06-05] MEDS ORDERED: Albuterol Sulfate 2.5 mg/3 ml Neb NEB PRN (08:16)
[2020-06-05] MEDS: levETIRAcetam 500 MG TAB PO SCH ×2 (08:41→21:10)
[2020-06-05] MEDS: DULoxetine 60 MG CAP PO SCH (08:41)
[2020-06-05] MEDS: Bupropion 150 MG XL TAB PO SCH (08:42)
[2020-06-05 08:58] LABS: Hemoglobin 8.5 g/dL (12.0-16.0); Mean Corpuscular Hemoglobin 28.9 pg (27.0-31.0); Mean Corpuscular Volume 90.2 fL (78.0-98.0); Mean Platelet Volume 7.6 fL (7.4-10.4); Platelet Count 171 thou/uL (130-400); RBC Distribution Width 13.7 % (11.5-14.5); Red Blood Cell (RBC) Count 2.94 mill/uL (4.20-5.40); White Blood Cell (WBC) Count 5.8 thou/uL (4.8-10.8)
[2020-06-05] MEDS ORDERED: Famotidine 20 MG TAB PO SCH (09:00)
[2020-06-05] MEDS ORDERED: Bupropion 150 MG XL TAB PO SCH (09:00)
[2020-06-05] MEDS ORDERED: Non-Formulary Item 1 EACH (Diltiazem Hcl [Diltiazem Hcl] 120 MG Tablet) PO SCH (09:00)
[2020-06-05 09:21] LABS: ALT (SGPT) Less than 7 U/L (8-55); AST (SGOT) 8 U/L (5-34); Albumin 3.2 g/dL (3.4-4.8); Alkaline Phosphatase 71 U/L (40-110); Anion Gap 12 mmol/L (10-20); BUN (Urea Nitrogen) 38 mg/dL (9.8-20.1); Bilirubin, Total 0.2 mg/dL (0.2-1.2); Calc. Creatinine Clearance 29 mL/min (70-130); Calcium 8.2 mg/dL (7.8-10.44); Carbon Dioxide 26 mmol/L (23-31); Chloride 108 mmol/L (98-107); Globulin 2.4 g/dL (2.4-3.5); Glucose 115 mg/dL (80-115); Magnesium 2.1 mg/dL (1.6-2.6); Potassium 4.2 mmol/L (3.5-5.1); Protein, Total 5.6 g/dL (5.8-8.1); Sodium 142 mmol/L (136-145)
[2020-06-05] MEDS: Sodium Chloride 0.9% 1,000 ML IV SCH (11:00)
--- NOTE | 2020-06-05 18:41 | PRG ---
DATE OF SERVICE: 06/05/2020 SUBJECTIVE: The patient was seen during morning rounds. Awake, alert, in no distress. The patient had no overnight events. She is awake, alert, and complains of some mild pain to the back of her head. There is no obvious hematoma. The patient is tolerating a diet. OBJECTIVE: VITAL SIGNS: Temperature 98.4, pulse 87, respirations 18, SpO2 of 97% on room air, blood pressure 124/64. GENERAL: Well-appearing elderly female, awake, alert, no distress. HEENT: Head is atraumatic and normocephalic. Pupils are equal bilateral, mucous membranes moist. PULMONARY: Good inspiratory and expiratory effort. No distress. CARDIAC: Regular rate, regular rhythm. ABDOMEN: Soft, nontender, nondistended. EXTREMITIES: Neurovascularly intact x4. NEURO: GCS 15, no deficits. LABORATORY DATA: WBC 5.8, RBC 2.94, hemoglobin 8.5, hematocrit 26.6, and platelets 171. Sodium 142, potassium 4.2, chloride 108, BUN 38, and creatinine 2.30, mildly improved from yesterday. Estimated GFR 21, glucose 115, calcium 8.2, phosphorus 5.0, magnesium 2.1, and albumin 3.2. DIAGNOSTICS: Repeat brain CT. Impression; small stable right-sided subdural hematoma. No new intracranial hemorrhage. ASSESSMENT: 1. Status post mechanical fall from standing. 2. Stable subdural hematoma, now status post right-sided frontal temporal craniotomy and evacuation of subdural hemorrhage on April 30, 2020. 3. Acute kidney injury on chronic kidney disease, stage 4, mildly improved. 4. History of coronary artery disease with myocardial infarction x2, cardiac stent, chronic kidney disease, rheumatoid arthritis, type 2 diabetes, chronic congestive heart failure, and chronic obstructive pulmonary disease with chronic home O2 use. PLAN: Continue supportive care. Continue PT and OT. The patient has been cleared per Neurosurgery with plans to have the patient follow up in 2 to 3 weeks. Case management working on additional rehab for the patient. The plan was discussed with the patient, who agrees. The plan was discussed with the attending, who agrees. We will continue to monitor renal function and urinary output. Job ID: [id number]
[2020-06-05] MEDS ORDERED: Oxybutynin 5 MG TAB PO PRN (20:19)
[2020-06-05] MEDS: Amitriptyline HCl 25 MG TAB PO SCH (21:10)
[2020-06-05] MEDS: Metoprolol Tartrate 25 MG TAB PO SCH (21:10)
[2020-06-05] MEDS: Atorvastatin Calcium 10 MG TAB PO SCH (21:10)
[2020-06-05] MEDS: Zonisamide 25 MG CAP PO SCH (21:55)
[2020-06-05] MEDS: Arformoterol 15 MCG/2 ML NEB NEB SCH (22:33)
[2020-06-05] MEDS: Budesonide 0.5 MG/2 ML NEB NEB SCH (22:33)
[2020-06-06] MEDS: Sodium Chloride 0.9% 1,000 ML IV SCH ×2 (00:18→17:07)
[2020-06-06 06:55] LABS: Anion Gap 10 mmol/L (10-20); BUN (Urea Nitrogen) 36 mg/dL (9.8-20.1); Calc. Creatinine Clearance 34 mL/min (70-130); Calcium 8.4 mg/dL (7.8-10.44); Carbon Dioxide 26 mmol/L (23-31); Chloride 111 mmol/L (98-107); Glucose 117 mg/dL (80-115); Phosphorus 4.3 mg/dL (2.3-4.7); Potassium 4.3 mmol/L (3.5-5.1); Sodium 143 mmol/L (136-145)
[2020-06-06] MEDS: Arformoterol 15 MCG/2 ML NEB NEB SCH ×2 (08:19→21:50)
[2020-06-06] MEDS: Budesonide 0.5 MG/2 ML NEB NEB SCH ×2 (08:20→21:51)
[2020-06-06] MEDS: Zonisamide 25 MG CAP PO SCH ×3 (09:00→21:49)
[2020-06-06] MEDS: DULoxetine 60 MG CAP PO SCH (09:00)
[2020-06-06] MEDS: Pioglitazone HCl 45 MG TAB PO SCH (09:00)
[2020-06-06] MEDS: Metoprolol Tartrate 25 MG TAB PO SCH ×2 (09:01→21:50)
[2020-06-06] MEDS: levETIRAcetam 500 MG TAB PO SCH ×2 (09:01→21:50)
[2020-06-06] MEDS: Bupropion 150 MG XL TAB PO SCH (09:01)
[2020-06-06] MEDS: Folic Acid 1 MG TAB PO SCH (09:01)
[2020-06-06] MEDS: Alogliptin 6.25 MG TAB PO SCH (13:32)
[2020-06-06] MEDS: Lactated Ringer's 1,000 ML IV SCH ×2 (13:32→22:03)
[2020-06-06] MEDS: Amitriptyline HCl 25 MG TAB PO SCH (21:49)
[2020-06-06] MEDS: Atorvastatin Calcium 10 MG TAB PO SCH (21:50)
[2020-06-07 05:57] LABS: Anion Gap 14 mmol/L (10-20); BUN (Urea Nitrogen) 28 mg/dL (9.8-20.1); Calc. Creatinine Clearance 45 mL/min (70-130); Calcium 8.8 mg/dL (7.8-10.44); Carbon Dioxide 20 mmol/L (23-31); Chloride 110 mmol/L (98-107); Glucose 126 mg/dL (80-115); Magnesium 2.1 mg/dL (1.6-2.6); Phosphorus 4.4 mg/dL (2.3-4.7); Potassium 4.4 mmol/L (3.5-5.1); Sodium 140 mmol/L (136-145)
[2020-06-07] MEDS: Arformoterol 15 MCG/2 ML NEB NEB SCH ×2 (07:16→19:58)
[2020-06-07] MEDS: Budesonide 0.5 MG/2 ML NEB NEB SCH ×2 (07:18→19:54)
[2020-06-07] MEDS: Bupropion 150 MG XL TAB PO SCH (08:50)
[2020-06-07] MEDS: Folic Acid 1 MG TAB PO SCH (08:50)
[2020-06-07] MEDS: Pioglitazone HCl 45 MG TAB PO SCH (08:50)
[2020-06-07] MEDS: Zonisamide 25 MG CAP PO SCH ×3 (08:51→20:37)
[2020-06-07] MEDS: Metoprolol Tartrate 25 MG TAB PO SCH ×2 (08:51→20:37)
[2020-06-07] MEDS: levETIRAcetam 500 MG TAB PO SCH ×2 (08:51→20:36)
[2020-06-07] MEDS: DULoxetine 60 MG CAP PO SCH (08:51)
[2020-06-07] MEDS: Alogliptin 6.25 MG TAB PO SCH (08:52)
--- NOTE | 2020-06-07 18:36 | PRG ---
DATE OF SERVICE: 06/07/2020 SUBJECTIVE: A 69-year-old female patient awake during morning rounds. I got the patient out of bed into the chair with assistance by the nurse. The patient is complaining of some mild bowel head pain that comes and goes, persistent of the last three months. The patient tolerated regular diet and voiding spontaneously. OBJECTIVE: VITAL SIGNS: Temperature 98.3, pulse 65, respiratory rate 16, O2 saturation 99 GENERAL: Well-appearing elderly female, awake, alert, no distress. HEENT: Right head is shaved with craniotomy scar present. PULMONARY: Equal breath sounds bilateral. No accessory muscle use. CARDIAC: Regular rate and rhythm. NEURO: GCS 15. No distress. ASSESSMENT: 1. Status post mechanical fall, standing. 2. Stable subdural hematoma, status post right frontal temporal craniotomy, evacuation of subdural hemorrhage on April 30, 2020. 3. Chronic kidney injury stage 4, mildly improved. 4. Coronary artery disease, myocardial infarction x2, cardiac stents, aortic insufficiency x4. 5. Rheumatoid arthritis. 6. Type 2 diabetes. 7. Congestive heart failure. 8. Chronic obstructive pulmonary disease on O2 at home. PLAN: The patient is doing great, patient will require physical therapy before being discharged back home. Patient will stay in the hospital until rehab has accepted the patient. Job ID: [id number] MTDD
[2020-06-07] MEDS: Amitriptyline HCl 25 MG TAB PO SCH (20:37)
[2020-06-07] MEDS: Atorvastatin Calcium 10 MG TAB PO SCH (20:37)
[2020-06-08 06:03] LABS: Anion Gap 9 mmol/L (10-20); BUN (Urea Nitrogen) 26 mg/dL (9.8-20.1); Calc. Creatinine Clearance 41 mL/min (70-130); Calcium 8.6 mg/dL (7.8-10.44); Carbon Dioxide 32 mmol/L (23-31); Chloride 109 mmol/L (98-107); Glucose 117 mg/dL (80-115); Phosphorus 4.5 mg/dL (2.3-4.7); Potassium 4.5 mmol/L (3.5-5.1); Sodium 145 mmol/L (136-145)
[2020-06-08] MEDS: Arformoterol 15 MCG/2 ML NEB NEB SCH (07:01)
[2020-06-08] MEDS: Budesonide 0.5 MG/2 ML NEB NEB SCH (07:03)
[2020-06-08] MEDS: Pioglitazone HCl 45 MG TAB PO SCH (09:51)
[2020-06-08] MEDS: Zonisamide 25 MG CAP PO SCH ×2 (09:51→16:20)
[2020-06-08] MEDS: Alogliptin 6.25 MG TAB PO SCH (09:51)
[2020-06-08] MEDS: Folic Acid 1 MG TAB PO SCH (09:52)
[2020-06-08] MEDS: Metoprolol Tartrate 25 MG TAB PO SCH (09:52)
[2020-06-08] MEDS: levETIRAcetam 500 MG TAB PO SCH (09:52)
[2020-06-08] MEDS: Bupropion 150 MG XL TAB PO SCH (09:52)
[2020-06-08] MEDS: DULoxetine 60 MG CAP PO SCH (09:52)
[2020-06-08] MEDS ORDERED: Bisacodyl 5 MG TAB PO SCH (15:30)
[2020-06-08 18:31] VITALS: BP 125/65; TEMP 98.2
--- NOTE | 2020-06-09 10:48 | DIS ---
DATE OF ADMISSION: 06/07/2020 DATE OF DISCHARGE: 06/08/2020 ADMISSION DIAGNOSES: 1. Status post ground level fall. 2. Chronic subdural hematoma, status post right-sided frontotemporal craniotomy and evacuation of subdural hemorrhage on April 30, 2020, with concern for recurrence. 3. Acute on chronic kidney injury. 4. History of coronary artery disease. 5. Myocardial infarction. 6. Rheumatoid arthritis. 7. Type 2 diabetes. 8. Congestive heart failure. 9. Chronic obstructive pulmonary disease. CONSULTATIONS: Neurosurgery, Dr. Mercedes. PROCEDURES: None. SUMMARY: The patient is a 69-year-old woman, who was brought to our facility. She was recently discharged from our facility to a alf facility, where she spent 2 weeks and she was then discharged home. Approximately 2 days after that, she had a ground level fall. The patient was taken to the [facility], where she underwent evaluation and examination. There was concern for tiny acute on chronic subdural hematoma, so the patient was transferred to our facility to undergo evaluation by Neurosurgery and admitted to the Trauma Team. The patient was evaluated by Neurosurgery. They did not feel that there were any new issues. The patient's GCS had remained 15 at [facility] and here in [place]. We begin working on placement and the patient was eventually able to be placed in [facility] to continue her therapy. At the time of discharge, the patient had only intermittent headaches, which she reports is improving. She was tolerating a diet. Her pain was controlled and she is working with Physical Therapy. She will follow up with Dr. Mercedes in his office as originally planned. She may follow up with Trauma Clinic as needed. Job ID: [id number]
--- NOTE | 2020-06-09 11:44 | PQF ---
Q53 2018 [facility] Updated: January 2019 CLINICAL DOCUMENTATION CLARIFICATION FORM: Dear : Irene, Date / Time: 06/09/2020 11:35 AM_ Please exercise your independent, professional judgment in responding to the clarification form. Clinical indicators are provided on the bottom of this form for your review Please check appropriate box(es): [ X ] Chronic Respiratory Failure only [ X] with Hypoxia [ ] Hypoxia [ ] Other diagnosis [ ] Unable to determine In addition, please specify: Present on Admission (POA): [X ] Yes [ ] No [ ] Unable to determine To be completed by CDI/Coding staff for physician review: Present Clinical Indicators - Signs / Symptoms / Labs Results and Location in Medical Record [x ] Decreased oxygen saturation (<90% room air or < 95% on oxygen). Cyanosis/Hypoxia O2 sat 93% on 3L NC per 06/06 VS Present Risk Factors Results and Location in Medical Record [ x ] History of home O2 use chronic oxygen at home 2 to 4 L per 06/04 H&P(TIN Liu) [ x ] COPD COPD per 06/04 H&P(Noe) Present Treatments Results and Location in Medical Record [ x] Oxygen 06/05 3L NC to 06/06 2L NC per orders [ x ] Monitoring of oxygenation status 06/05- 06/08 per orders [x ] Respiratory treatments Brovana 15 mcg neb BID 06/05-06/08 per orders Pulmicort 0.5 mg BID 06/05-06/08 per orders CDS/Cigar Wrapper Signature: Debbie Jhaveri RN, CCDS Phone #: [phone] Date/Time: 06/09/2020 11:41 AM Acute Respiratory Failure: ABG pH < 7.35 or > 7.45; Decreased oxygen saturation (<90% room air or < 95% on oxygen); PCO2 > 50 mm Hg; PO2 < 60 mm Hg; Labored or rapid respirations ARDS: Dx Criteria [[place] ARDS]: Respiratory symptoms within one week of a known clinical insult (e.g. shock, infection, surgery, trauma) Bilateral opacities in CXR/Chest CT not due to CHF or fluid This is a permanent part of the Medical Record MTDD
== END 2020-06-08 19:00 | DRG 86 ==
LOC: SURG B 16:31 → INTOOBSV 16:31 → OBSVTOIN 06-07 12:23
PROVIDERS: ADMIT Surgery; ATTEND Surgery
DX: S06.5X0A Traumatic subdural hemorrhage without loss of consciousness, initial encounter (principal); N18.4 Chronic kidney disease, stage 4 (severe); N17.9 Acute kidney failure, unspecified; I50.22 Chronic systolic (congestive) heart failure; J96.11 Chronic respiratory failure with hypoxia; W05.0XXA Fall from non-moving wheelchair, initial encounter; I25.10 Atherosclerotic heart disease of native coronary artery without angina pectoris; M06.9 Rheumatoid arthritis, unspecified; E11.22 Type 2 diabetes mellitus with diabetic chronic kidney disease; J44.9 Chronic obstructive pulmonary disease, unspecified; Z96.653 Presence of artificial knee joint, bilateral; Z96.643 Presence of artificial hip joint, bilateral; Z20.822 Contact with and (suspected) exposure to COVID-19; I25.2 Old myocardial infarction; Z95.5 Presence of coronary angioplasty implant and graft; Z90.49 Acquired absence of other specified parts of digestive tract; Z90.710 Acquired absence of both cervix and uterus; Z98.84 Bariatric surgery status; Z98.890 Other specified postprocedural states; Z87.891 Personal history of nicotine dependence; Z88.1 Allergy status to other antibiotic agents; Z79.899 Other long term (current) drug therapy; Z99.81 Dependence on supplemental oxygen
CPT/HCPCS: 36415; 36416; 70450; 80048; 80053; 83735; 83880; 84100; 85025; 85027; 85610; 85730; 87635; 93005; 94640; G0378; J7626; U0003; U0005